=== PATIENT | male | born 1945 | race Caucasian/White ===

== ENCOUNTER 2018-08-03 08:27 | Emergency (ER) | payer OTHER, SELFPAY ==
[2018-08-03 08:33] VITALS: BP 182/97; PULSE 94; RESP 16; TEMP 36.6; O2SAT 100
[2018-08-03 09:56] LABS: Bilirubin Negative (Negative); Blood Small (Negative); Clarity Clear; Glucose Negative (Negative); Ketones Negative (Negative); Leukocyte Esterase Negative (Negative); Nitrite Negative (Negative); Specific Gravity 1.015 (1.005-1.025); Urobilinogen 0.2 EU/dL (Up TO 0.2)
--- NOTE | 2018-08-03 10:16 | W.ED.GENAD ---
Discharge Plan Disposition Patient Disposition: HOME Condition: Stable Discharge Details Chief Complaint: Urinary Clinical Impression: Acute urinary retention Primary Care Provider: Jas Gutierrez ED Provider: Micaela Joseph Home Meds and New Rx's Prescriptions: No Action celecoxib [Celebrex] 200 mg Capsule 200 mg PO DAILY RF: 0 Discharge Instructions Instructions: Urinary Retention in Men (ED), Caruso Catheter Placement and Care (ED), Urinary Leg Bag (GEN) Additional Instructions: Please return immediately to the emergency department he develop any new or worsening symptoms or if he become otherwise concerned. It is extremely important that you make an appointment to be seen in follow-up by urology within the next few days. Referrals: Jas Gutierrez [Primary Care Provider] - Oscar Rojas MD [ [facility] STAFF PHYSICIAN] - Medical Decision Making Benitez Fang is a 73-year-old man with history of arthritis no other major medical problems presenting to emergency department with difficulty urinating that began last night and lower abdominal pain since that time. On exam patient is very well and nontoxic-appearing. Benign abdominal exam. Normal neuro exam of lower extremities. Patient had Caruso placement after bladder scan showed greater than 1 L. Patient put out over 1 L of urine after Caruso placement. Abdominal pain resolved immediately with Caruso placement. Exam/history not consistent with cauda equina syndrome or other cord compression, prostatitis, medication induced urinary retention, or other acute emergent life-threatening process. Concern for likely BPH. Plan for screening labs, UA, anticipate discharge with Caruso and outpatient follow-up with urology. Labs okay. Pt placed on list for urgent outpt f/u with urology. Lengthy discussion with Pt re: RTED precautions and importance of outpt f/u with PCP and urology, Pt is amenable to the plan. Medical Records Medical records reviewed: Yes I reviewed the patient's medical records. Lab Data Lab results reviewed: Yes I reviewed the patient's lab results. Laboratory Tests Range/Units 08/03/18 08/03/18 08/03/18 09:45 10:36 10:36 WBC (4.4-10.8) k/cumm 4.91 RBC (4.50-6.00) m/cumm 4.70 Hgb (13.5-17.5) g/dL 14.4 Hct (40.0-50.0) % 43.8 MCV (80-95) fL 93.2 MCH (27.0-33.0) pg 30.6 MCHC (32.0-36.0) g/dL 32.9 RDW (11.8-14.1) % 13.9 Plt Count (130-400) x1000/uL 194 MPV (8.0-11.0) fL 10.4 Immature Gran % 0.2 Neutrophils % 74.6 Lymphocytes % 16.3 Monocytes % 6.9 Eosinophils % 1.4 Basophils % 0.6 Absolute Neutrophils (1.2-6.7) k/cumm 3.66 Absolute Lymphocytes (1.2-3.4) k/cumm 0.80 L Absolute Monocytes (0.11-0.7) k/cumm 0.34 Absolute Eosinophils (0.0-0.7) k/cumm 0.07 Absolute Basophils (0.0-0.2) k/cumm 0.03 Sodium (136-145) mmol/L 141 Potassium (3.5-5.1) mmol/L 4.3 Chloride (98-107) mmol/L 105 Carbon Dioxide (21.0-32.0) mmol/L 27.6 Anion Gap (3-11) mmol/L 8.4 BUN (7-18) mg/dL 13 Creatinine (0.70-1.30) mg/dL 0.88 Estimated GFR/1.73 m2 (mL/min/1.73m2) >= 60.00 Glucose (70-100) mg/dL 119 H Calcium (8.5-10.1) mg/dL 8.9 Total Bilirubin (0.2-1.0) mg/dL 0.5 AST (15-37) U/L 18 ALT (12-78) U/L 23 Alkaline Phosphatase (46-116) U/L 84 Total Protein (6.4-8.2) g/dL 7.6 Albumin (3.4-5.0) g/dL 3.9 Urine Color (Yellow) Yellow Urine Clarity Clear Urine pH (5-8) 7.0 Ur Specific [place] (1.005-1.025) 1.015 Urine Protein (Negative) mg/dL Negative Urine Ketones (Negative) mg/dL Negative Urine Blood (Negative) Small H Urine Nitrite (Negative) Negative Urine Bilirubin (Negative) Negative Urine Urobilinogen (Up TO 0.2) EU/dL 0.2 Ur Leukocyte Esterase (Negative) Negative Urine RBC (0-2) 0-2 Urine WBC (0-5) HPF Negative Ur Epithelial Cells (Negative) HPF Negative Urine Crystals (Negative) HPF Negative Urine Bacteria (Negative) HPF Negative Urine Casts (Negative) LPF Negative Urine Mucus (Negative) Negative Ur Culture Indicated? No Urine Glucose (Negative) mg/dL Negative HPI General Mode of arrival: ambulatory. Date/Time Provider Initiated Documentation: 08/03/18 09:36. Limitations to Documentation: no limitations. Information obtained by: patient, RN notes reviewed and old records reviewed. HPI Narrative: Benitez Fang is a 73 y/o man with history of arthritis and no other major medical problems presenting to the emergency department with inability to urinate. Patient reports that at approximately 5 or 6 last night he began having difficulty urinating, and has not been able to pass urine since that time. He came in this morning with lower abdominal pain, that resolved immediately upon placement of Caruso catheter. Patient reporting no pain at all, and reports that abdominal pain began at some point last night after he developed the inability to urinate. Prior to that, patient has been feeling well and in his usual state of health without other symptoms. He denies recent travel or recent illness. He takes ibuprofen and no other prescription or dkvv-deu-dserelr medications. Patient reports that he was told in the past that he had an enlarged prostate, but has never had urinary retention in the past. No fever, dysuria, nausea/vomiting/diarrhea/constipation, back pain, weakness of the arms or legs, numbness or tingling, cough, shortness of breath Related Data Home Medications Medication Instructions Recorded Confirmed celecoxib [Celebrex] 200 mg PO DAILY 08/03/18 08/03/18 Allergies Allergy/AdvReac Type Severity Reaction Status Date / Time No Known Allergies Allergy Unverified 08/03/18 08:45 General Stated Complaint: Urinary NICOLE: 3 Review of Systems Review of Systems Constitutional: denies fevers Eyes: denies eye pain ENT: denies facial pain, dental pain, sore throat Cardiovascular: denies chest pain Respiratory: denies SOB, cough GI: denies vomiting, diarrhea, reports abd pain now resolved : denies flank pain MSK: denies back pain, neck pain, arthralgias, myalgias Skin: denies rash Neuro: denies headaches, lightheadedness, weakness, n/t PFSH Social History Smoking/Tobacco Use Status: Current every day Exam Narrative Exam Narrative: Constitutional: well and [id number], pleasant, conversing normally HENT: head atraumatic, normocephalic normal inspection, mucous membranes moist Eyes: conjunctiva normal, sclera normal, pupils 3mm b/l Neck: no stridor, normal ROM, trachea midline Chest: normal inspection Resp: normal work of breathing, LCTAB Cardio: normal rate, normal rhythm, no murmur appreciated GI: abdomen soft, non-tender, non-distended Skin: warm, dry, normal color, no rash Neuro: alert, not altered, grossly non-focal, normal tone. Motor 5/5 b/l LEs. Ext: no edema Psych: normal mood, normal affect, normal behavior Course Vital Signs Temperature 36.6 C 08/03/18 08:33 Pulse 94 H 08/03/18 08:33 Respiratory Rate 16 08/03/18 08:33 Blood Pressure 182/97 H 08/03/18 08:33 Pulse Oximetry 100 08/03/18 08:33 Temperature 36.6 C 08/03/18 08:33 Temperature Source Temporal Artery Scan 08/03/18 08:33 Pulse 94 H 08/03/18 08:33 Respiratory Rate 16 08/03/18 08:33 Respiratory Effort 08/03/18 08:46 Blood Pressure 182/97 H 08/03/18 08:33 Blood Pressure Position Supine 08/03/18 08:33 Pulse Oximetry 100 08/03/18 08:33 Oxygen Delivery Method Room Air 08/03/18 08:33 Oxygen Flow Rate 0 08/03/18 08:33 Pain Level 3 08/03/18 08:33
--- NOTE | 2018-08-03 10:24 | ED.GENADUL_ITS ---
Discharge Plan Disposition Patient Disposition: HOME Condition: Stable Discharge Details Chief Complaint: Urinary Clinical Impression: Acute urinary retention Primary Care Provider: Jas Gutierrez ED Provider: Micaela Joseph Home Meds and New Rx's Prescriptions: No Action celecoxib [Celebrex] 200 mg Capsule 200 mg PO DAILY RF: 0 Discharge Instructions Instructions: Urinary Retention in Men (ED), Caruso Catheter Placement and Care (ED), Urinary Leg Bag (GEN) Additional Instructions: Please return immediately to the emergency department he develop any new or worsening symptoms or if he become otherwise concerned. It is extremely important that you make an appointment to be seen in follow-up by urology within the next few days. Referrals: Jas Gutierrez [Primary Care Provider] - Oscar Rojas MD [ [facility] STAFF PHYSICIAN] - Medical Decision Making Benitez Fang is a 73-year-old man with history of arthritis no other major medical problems presenting to emergency department with difficulty urinating that began last night and lower abdominal pain since that time. On exam patient is very well and nontoxic-appearing. Benign abdominal exam. Normal neuro exam of lower extremities. Patient had Caruso placement after bladder scan showed greater than 1 L. Patient put out over 1 L of urine after Caruso placement. Abdominal pain resolved immediately with Caruso placement. Exam/ history not consistent with cauda equina syndrome or other cord compression, prostatitis, medication induced urinary retention, or other acute emergent life- threatening process. Concern for likely BPH. Plan for screening labs, UA, anticipate discharge with Caruso and outpatient follow-up with urology. Labs okay. Pt placed on list for urgent outpt f/u with urology. Lengthy discussion with Pt re: RTED precautions and importance of outpt f/u with PCP and urology, Pt is amenable to the plan. Medical Records Medical records reviewed: Yes I reviewed the patient's medical records. Lab Data Lab results reviewed: Yes I reviewed the patient's lab results. Laboratory Tests Range/Units 08/03/18 08/03/18 08/03/18 09:45 10:36 10:36 WBC (4.4-10.8) k/cumm 4.91 RBC (4.50-6.00) m/cumm 4.70 Hgb (13.5-17.5) g/dL 14.4 Hct (40.0-50.0) % 43.8 MCV (80-95) fL 93.2 MCH (27.0-33.0) pg 30.6 MCHC (32.0-36.0) g/dL 32.9 RDW (11.8-14.1) % 13.9 Plt Count (130-400) x1000/uL 194 MPV (8.0-11.0) fL 10.4 Immature Gran % 0.2 Neutrophils % 74.6 Lymphocytes % 16.3 Monocytes % 6.9 Eosinophils % 1.4 Basophils % 0.6 Absolute Neutrophils (1.2-6.7) k/cumm 3.66 Absolute Lymphocytes (1.2-3.4) k/cumm 0.80 L Absolute Monocytes (0.11-0.7) k/cumm 0.34 Absolute Eosinophils (0.0-0.7) k/cumm 0.07 Absolute Basophils (0.0-0.2) k/cumm 0.03 Sodium (136-145) mmol/L 141 Potassium (3.5-5.1) mmol/L 4.3 Chloride (98-107) mmol/L 105 Carbon Dioxide (21.0-32.0) mmol/L 27.6 Anion Gap (3-11) mmol/L 8.4 BUN (7-18) mg/dL 13 Creatinine (0.70-1.30) mg/dL 0.88 Estimated GFR/1.73 m2 (mL/min/1.73m2) >= 60.00 Glucose (70-100) mg/dL 119 H Calcium (8.5-10.1) mg/dL 8.9 Total Bilirubin (0.2-1.0) mg/dL 0.5 AST (15-37) U/L 18 ALT (12-78) U/L 23 Alkaline Phosphatase (46-116) U/L 84 Total Protein (6.4-8.2) g/dL 7.6 Albumin (3.4-5.0) g/dL 3.9 Urine Color (Yellow) Yellow Urine Clarity Clear Urine pH (5-8) 7.0 Ur Specific [place] (1.005-1.025) 1.015 Urine Protein (Negative) mg/dL Negative Urine Ketones (Negative) mg/dL Negative Urine Blood (Negative) Small H Urine Nitrite (Negative) Negative Urine Bilirubin (Negative) Negative Urine Urobilinogen (Up TO 0.2) EU/dL 0.2 Ur Leukocyte Esterase (Negative) Negative Urine RBC (0-2) 0-2 Urine WBC (0-5) HPF Negative Ur Epithelial Cells (Negative) HPF Negative Urine Crystals (Negative) HPF Negative Urine Bacteria (Negative) HPF Negative Urine Casts (Negative) LPF Negative Urine Mucus (Negative) Negative Ur Culture Indicated? No Urine Glucose (Negative) mg/dL Negative HPI General Mode of arrival: ambulatory . Date/Time Provider Initiated Documentation: 08/03/18 09:36 . Limitations to Documentation: no limitations . Information obtained by: patient, RN notes reviewed and old records reviewed . HPI Narrative: Benitez Fang is a 73 y/o man with history of arthritis and no other major medical problems presenting to the emergency department with inability to urinate. Patient reports that at approximately 5 or 6 last night he began having difficulty urinating, and has not been able to pass urine since that time. He came in this morning with lower abdominal pain, that resolved immediately upon placement of Caruso catheter. Patient reporting no pain at all , and reports that abdominal pain began at some point last night after he developed the inability to urinate. Prior to that, patient has been feeling well and in his usual state of health without other symptoms. He denies recent travel or recent illness. He takes ibuprofen and no other prescription or over- the-counter medications. Patient reports that he was told in the past that he had an enlarged prostate, but has never had urinary retention in the past. No fever, dysuria, nausea/vomiting/diarrhea/constipation, back pain, weakness of the arms or legs, numbness or tingling, cough, shortness of breath Related Data Home Medications Medication Instructions Recorded Confirmed celecoxib [Celebrex] 200 mg PO DAILY 08/03/18 08/03/18 Allergies Allergy/AdvReac Type Severity Reaction Status Date / Time No Known Allergies Allergy Unverified 08/03/18 08:45 General Stated Complaint: Urinary NICOLE: 3 Review of Systems Review of Systems Constitutional: denies fevers Eyes: denies eye pain ENT: denies facial pain, dental pain, sore throat Cardiovascular: denies chest pain Respiratory: denies SOB, cough GI: denies vomiting, diarrhea, reports abd pain now resolved : denies flank pain MSK: denies back pain, neck pain, arthralgias, myalgias Skin: denies rash Neuro: denies headaches, lightheadedness, weakness, n/t PFSH Social History Smoking/Tobacco Use Status: Current every day Exam Narrative Exam Narrative: Constitutional: well and [id number], pleasant, conversing normally HENT: head atraumatic, normocephalic normal inspection, mucous membranes moist Eyes: conjunctiva normal, sclera normal, pupils 3mm b/l Neck: no stridor, normal ROM, trachea midline Chest: normal inspection Resp: normal work of breathing, LCTAB Cardio: normal rate, normal rhythm, no murmur appreciated GI: abdomen soft, non-tender, non-distended Skin: warm, dry, normal color, no rash Neuro: alert, not altered, grossly non-focal, normal tone. Motor 5/5 b/l LEs. Ext: no edema Psych: normal mood, normal affect, normal behavior Course Vital Signs Temperature 36.6 C 08/03/18 08:33 Pulse 94 H 08/03/18 08:33 Respiratory Rate 16 08/03/18 08:33 Blood Pressure 182/97 H 08/03/18 08:33 Pulse Oximetry 100 08/03/18 08:33 Temperature 36.6 C 08/03/18 08:33 Temperature Source Temporal Artery Scan 08/03/18 08:33 Pulse 94 H 08/03/18 08:33 Respiratory Rate 16 08/03/18 08:33 Respiratory Effort 08/03/18 08:46 Blood Pressure 182/97 H 08/03/18 08:33 Blood Pressure Position Supine 08/03/18 08:33 Pulse Oximetry 100 08/03/18 08:33 Oxygen Delivery Method Room Air 08/03/18 08:33 Oxygen Flow Rate 0 08/03/18 08:33 Pain Level 3 08/03/18 08:33
[2018-08-03 10:29] LABS: Bacteria Negative HPF (Negative); C & S Indicated? No; Casts Negative LPF (Negative); Crystals Negative HPF (Negative); Epithelial Cells Negative HPF (Negative); Mucus Negative (Negative); RBC 0-2 (0-2); WBC Negative HPF (0-5)
[2018-08-03 10:43] LABS: Abs Immature Grans 0.01 k/cumm (0.0-0.09); Absolute Basophil Count 0.03 k/cumm (0.0-0.2); Absolute Eosinophil Count 0.07 k/cumm (0.0-0.7); Absolute Monocyte Count 0.34 k/cumm (0.11-0.7); Absolute Neutrophil Count 3.66 k/cumm (1.2-6.7); Basophils % 0.6; Eosinophils % 1.4; HCT 43.8 % (40.0-50.0); HGB 14.4 g/dL (13.5-17.5); Immature Grans % 0.2; Lymphocytes % 16.3; Mean Corp. HGB Concentration 32.9 g/dL (32.0-36.0); Mean Corpuscular Hemoglobin 30.6 pg (27.0-33.0); Mean Corpuscular Volume 93.2 fL (80-95); Mean Platelet Volume 10.4 fL (8.0-11.0); Monocytes % 6.9; Neutrophils % 74.6; Platelet Count 194 x1000/uL (130-400); RBC Distribution Width 13.9 % (11.8-14.1); White Blood Cell Count 4.91 k/cumm (4.4-10.8)
[2018-08-03 11:00] LABS: ALT 23 U/L (12-78); AST 18 U/L (15-37); Albumin 3.9 g/dL (3.4-5.0); Alkaline Phosphatase 84 U/L (46-116); Anion Gap 8.4 mmol/L (3-11); BUN 13 mg/dL (7-18); Bilirubin, Total 0.5 mg/dL (0.2-1.0); CO2 27.6 mmol/L (21.0-32.0); CREATININE 0.88 mg/dL (0.70-1.30); Calcium 8.9 mg/dL (8.5-10.1); Chloride 105 mmol/L (98-107); Glucose 119 mg/dL (70-100); Potassium 4.3 mmol/L (3.5-5.1); Sodium 141 mmol/L (136-145); Total Protein 7.6 g/dL (6.4-8.2)
--- NOTE | 2018-08-04 09:13 | PDOC.ERCMPRO ---
Care Management Progress Note 08/04/18-Pt seen on 08/03/18 for urinary retention by Dr. Alanis Joseph . F/U request faxed to Urology .
== END 2018-08-03 11:19 | disposition home or self-care (01) ==
PROVIDERS: Emergency Provider Student in an Organized Health Care Education/Training Program; PCP Family Medicine
DX: R33.9 Retention of urine, unspecified (principal)
CPT/HCPCS: 36415; 51702; 80053; 99283; 81003; 81015; 85025

== ENCOUNTER → 2018-08-12 07:48 | Outpatient (BNVA) | payer OTHER, SELFPAY | PROVIDERS: PCP Family Medicine; Visit Provider Nurse Practitioner Gerontology | DX: R33.9 Retention of urine, unspecified (principal); N52.9 Male erectile dysfunction, unspecified | CPT/HCPCS: 99204; 99215 ==

== ENCOUNTER → 2018-11-16 10:12 | Outpatient (BNVA) | payer OTHER, SELFPAY | PROVIDERS: PCP Family Medicine; Visit Provider Nurse Practitioner Gerontology | DX: N40.1 Benign prostatic hyperplasia with lower urinary tract symptoms (principal); R33.8 Other retention of urine; N52.9 Male erectile dysfunction, unspecified | CPT/HCPCS: 51798; 99213 ==

== ENCOUNTER 2019-07-25 03:44 | Emergency (ER) | payer OTHER, SELFPAY ==
[2019-07-25 03:49] VITALS: BP 150/77; PULSE 85; RESP 18; TEMP 37; O2SAT 95
--- NOTE | 2019-07-25 03:57 | W.ED.GENAD ---
Discharge Plan Disposition Patient Disposition: HOME Condition: Good Discharge Details Chief Complaint: Urinary Clinical Impression: Urinary retention due to benign prostatic hyperplasia, Acute UTI Primary Care Provider: Unknown,Unknown ED Provider: Renan Sheffield Home Meds and New Rx's Prescriptions: New levofloxacin 750 mg tablet 750 mg PO DAILY Qty: 5 RF: 0 No Action tamsulosin [Flomax] 0.4 mg capsule 0.4 mg PO DAILY Qty: 90 RF: 3 celecoxib [Celebrex] 200 mg Capsule 200 mg PO DAILY RF: 0 Discharge Instructions Instructions: Urinary Retention in Men (ED), Urinary Tract Infection in Men (ED) Additional Instructions: In addition to your urinary retention you also have a mild urinary tract infection. Please take the antibiotic as directed. If you notice any pain in your joints, please stop taking the antibiotic immediately and do not perform any significant vigorous activity. We have placed a referral with Dr. Rojas, if you do not hear from him by Friday, please contact the ED and so we can help with this process. If you notice any worsening of your symptoms, or any new symptoms such as vomiting, diarrhea, fever, chills, shortness of breath, chest pain, numbness, weakness, or fainting , please return immediately to the emergency department for reevaluation. Please follow up with your primary care provider as soon as possible for reassessment and reevaluation. As always, it was a pleasure participating in your medical care today. Referrals: Oscar Rojas MD [ [facility] STAFF PHYSICIAN] - Medical Decision Making This is a pleasant 74-year-old male with past medical history of BPH and tamsulosin use with last episode of urinary retention last year who presents today for evaluation of urinary retention. Last urinary movement was roughly 14 hours ago. He does admit to a small amount of burning. He denies any blood. He denies any fever chills abdominal or flank pain. Genital exam is unremarkable. Currently the patient is retaining 450 cc of urine or greater. We will place a Caruso catheter with leg bag. Obtain a urinalysis and reassess. 4:41 AM Patient had 500 mL's of urine removed, vital signs are stable, urinalysis does demonstrate evidence of urinary tract infection. No clinical evidence of pyelonephritis with fever, chills or flank pain. We will give the first dose of Levaquin here, and antibiotics for home use. We will place a referral for outpatient urology follow-up. I have extensively reviewed the treatment plan and discharge instructions with the patient. I have addressed all patient concerns at this time. The patient was made aware of what symptoms to monitor for that would warrant a return to the emergency department. Discussed the plan with the patient, they demonstrate verbal understanding and agreement with our assessment and plan at this time. HPI General Date/Time Provider Initiated Documentation: 07/25/19 03:46. HPI Narrative: This is a pleasant 74-year-old male with a past medical history of benign prostatic hyperplasia, and previous episode of urinary retention. He presents today for evaluation of urinary retention. Patient states that his last urinary movement was 15 hours ago at 11 AM, he is able to get very small amounts of urine out since then, but this is been minimal. He has had notable pain and pressure since then, small amount of burning is also been present. He denies any hematuria. He has been taking his Flomax as directed. He denies any fever, chills, nausea, vomiting, diarrhea or other complaints. He states that his symptoms feel identical to his last episode of urinary retention. Related Data Home Medications Medication Instructions Recorded Confirmed celecoxib [Celebrex] 200 mg PO DAILY 08/03/18 07/25/19 tamsulosin 0.4 mg capsule 0.4 mg PO DAILY #90 cap 11/16/18 07/25/19 levofloxacin 750 mg PO DAILY #5 tab 07/25/19 Previous Rx's Medication Instructions Recorded tamsulosin 0.4 mg capsule 0.4 mg PO DAILY #90 cap 11/16/18 levofloxacin 750 mg PO DAILY #5 tab 07/25/19 Allergies Allergy/AdvReac Type Severity Reaction Status Date / Time Penicillins Allergy Unknown Verified 07/25/19 04:12 General NICOLE: 3 Review of Systems Review of Systems ROS Unobtainable: All systems reviewed & are unremarkable except as noted in HPI and below [facility] Social History (Updated 08/12/18 @ 08:16 by Danielle Salcedo RN) Smoking/Tobacco Use Status: Current every day Alcohol Intake: current Alcohol Intake frequency: holidays/special occasions only Drug use: Never Substance use type: does not use Do you feel safe in your relationship?: Yes Exam Narrative Exam Narrative: 1.Const: Well-nourished, Well-developed, appearing stated age 2.Eyes: PERRL, no conjunctival injection, and symmetrical lids. 3.ENT: Atraumatic external nose and ears. Moist MM. Neck: Symmetric, trachea midline, No thyromegaly. 4.CVS: +S1/S2, No murmurs or gallops. Peripheral pulses 2+ and equal in all extremities. Brisk capillary refill in all extremities. 5.RESP: Unlabored respiratory effort. Clear to auscultation bilaterally. No wheezes rales or rhonchi 6.GI: Soft, Nontender/Nondistended, No hepatosplenomegaly. No guarding or rebound. Mild suprapubic tenderness. Mild fullness noted. Genital exam demonstrates normal male genitalia, no testicular tenderness, no penile tenderness, no blood at the urethra. 7.MSK: Normocephalic/Atraumatic, Extremities w/o deformity or ttp No cyanosis or clubbing, Normal movement of all extremities 8.Skin: Warm, Dry. No rashes or lesions. 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 Sensation grossly intact, no focal neurologic deficits. 10.Psych: (AAO) x3. Appropriate mood and affect
[2019-07-25] MEDS: Lidocaine 2% Jelly 6 ML SYR (04:15)
[2019-07-25 04:25] LABS: Bilirubin Negative (Negative); Blood Moderate (Negative); Clarity Clear (Clear); Glucose Negative (Negative); Ketones Negative (Negative); Leukocyte Esterase Large (Negative); Nitrite Positive (Negative); Specific Gravity 1.015 (1.005-1.025); Urobilinogen 0.2 EU/dL (Up TO 0.2); pH 6.5 (5-8)
[2019-07-25 04:31] LABS: WBC >50 HPF (0-5)
[2019-07-25 04:32] LABS: C & S Indicated? Yes
[2019-07-25] MEDS: levoFLOXacin 500 MG, levoFLOXacin 250 MG 750 MG PO (04:38)
[2019-07-25 04:39] VITALS: BP 127/73
--- NOTE | 2019-07-25 04:43 | NUR.NOTE ---
Nursing Note: faxed referal to urology
[2019-07-25 05:20] VITALS: BP 127/73
--- NOTE | 2019-07-27 06:55 | NUR.NOTE ---
Nursing Note: Patient called this morning stating that he had not yet heard from [facility]. Another referral was faxed to that department. Sherron Parker.
== END 2019-07-25 05:21 | disposition home or self-care (01) ==
PROVIDERS: Emergency Provider Student in an Organized Health Care Education/Training Program
DX: N39.0 Urinary tract infection, site not specified (principal); N40.1 Benign prostatic hyperplasia with lower urinary tract symptoms; R33.8 Other retention of urine; B95.61 Methicillin susceptible Staphylococcus aureus infection as the cause of diseases classified elsewhere
CPT/HCPCS: 51702; 87077; 99283; 81003; 81015; 87086; 87186

== ENCOUNTER → 2019-07-28 07:56 | Outpatient (BNVA) | payer OTHER, SELFPAY | PROVIDERS: Visit Provider Nurse Practitioner Gerontology | DX: N40.1 Benign prostatic hyperplasia with lower urinary tract symptoms (principal); R33.8 Other retention of urine | CPT/HCPCS: 99213 ==

== ENCOUNTER → 2019-08-24 08:26 | Outpatient (BNVA) | payer OTHER, SELFPAY | PROVIDERS: Visit Provider Nurse Practitioner Gerontology | DX: N40.1 Benign prostatic hyperplasia with lower urinary tract symptoms (principal); R33.8 Other retention of urine | CPT/HCPCS: 51798; 81003; 99213 ==

== ENCOUNTER → 2020-08-28 08:28 | Outpatient (BNVA) | payer OTHER, SELFPAY | PROVIDERS: Visit Provider Nurse Practitioner Gerontology | DX: N40.1 Benign prostatic hyperplasia with lower urinary tract symptoms (principal); R33.8 Other retention of urine; R97.20 Elevated prostate specific antigen [PSA] | CPT/HCPCS: 99213 ==

== ENCOUNTER 2020-08-28 10:07 | Outpatient (REF) | payer OTHER, SELFPAY ==
[2020-08-28 17:58] LABS: PSA, Screening 115.3 ng/mL (0.0-6.5)
== END 2020-08-28 10:27 ==
LOC: LBO 10:07
PROVIDERS: Visit Provider Nurse Practitioner Gerontology
DX: N40.1 Benign prostatic hyperplasia with lower urinary tract symptoms (principal); R33.9 Retention of urine, unspecified
CPT/HCPCS: 84153

== ENCOUNTER 2020-09-29 04:26 | Outpatient (CLI) | payer OTHER, SELFPAY ==
--- NOTE | 2020-09-29 07:15 | DI.US_ITS ---
EXAM: elevated psa,R97.20 COMPARISON: No exams were available for comparison TECHNIQUE: Ultrasound performed using standard protocol. FINDINGS: Sonography was provided for Dr. Rojas during the performance of a transrectal ultrasound-guided pros cardenas biopsy. Please refer to the procedure report for complete details. DATA REPOSITORY:
--- NOTE | 2020-09-29 13:45 | PROST_PTH ---
PATIENT: Benitez Fang LOC: [facility] U#:[id number] AGE/SX: 75/M ROOM: RE09/29/[address]: Oscar Rojas MD : 1945 BED: DIS: 09/29/2020 SPEC #: [id number] RECD: 09/29/20 15:55 STATUS: YUKO REQ #: [id number] MACI: 09/29/20 13:[address]: Oscar Rojas DEPT: Surgical Specimen RECD BY: Violet Garland ENTERED: 09/29/20 15:57 SP TYPE: PROST OTHR DR: Aletha Newell, DANIEL Unknown,Unknown Tissues: 1 - PROSTATE NEEDLE BIOPSY 2 - PROSTATE NEEDLE BIOPSY 3 - PROSTATE NEEDLE BIOPSY 4 - PROSTATE NEEDLE BIOPSY 5 - PROSTATE NEEDLE BIOPSY 6 - PROSTATE NEEDLE BIOPSY 7 - PROSTATE NEEDLE BIOPSY 8 - PROSTATE NEEDLE BIOPSY 9 - PROSTATE NEEDLE BIOPSY 10 - PROSTATE NEEDLE BIOPSY 11 - PROSTATE NEEDLE BIOPSY 12 - PROSTATE NEEDLE BIOPSY Procedures: GROSS AND MICRO LEVEL 4 IMMUNOPEROXIDASE STAIN Comments: [id number]
--- NOTE | 2020-09-29 14:06 | W.PM.OP ---
Date of service: 09/29/20 Time of Service: 14:06 Operative Note Operative Note DATE OF PROCEDURE: 09/29/20 PRE-OP DIAGNOSIS: Elevated PSA POST-OP DIAGNOSIS: same PROCEDURE: Transrectal ultrasound-guided biopsy of the prostate SURGEON: Oscar Rojas ANESTHESIA: local ESTIMATED BLOOD LOSS: 5 PATHOLOGY: other (12 laterally directed biopsies of the prostate) COMPLICATIONS: None Patient was transported to: no change Patient's condition: stable Indications: This is a 75-year-old gentleman who has an asymmetric prostate on exam. His PSA is 115 ng/dL. He comes in for ultrasound-guided biopsy of the prostate Findings: Asymmetric prostate with a volume of 85 cc Procedure Description: The patient was given a preoperative antibiotic and mechanical bowel prep. He was brought to the radiology suite on 09/29/2020. He was placed in the left lateral position. Transrectal imaging of the prostate was performed using a variable megahertz transducer. The prostate was imaged in transverse and longitudinal planes. The prostate was asymmetric with the left side being larger than the right. The prostatic volume was calculated at 85 cc. The peripheral zone appeared normal but compressed by an enlarged transition zone. The few calcified areas were seen within the transition zone. The seminal vesicles appeared normal. A periprosthetic nerve block was then performed using 1% Xylocaine. 12 laterally directed biopsies were taken, labeled and sent to pathology for permanent section. The patient tolerated this procedure well.
== END 2020-09-29 04:46 ==
PROVIDERS: PCP Nurse Practitioner Gerontology; Visit Provider Urology
DX: R97.20 Elevated prostate specific antigen [PSA] (principal)
CPT/HCPCS: 55700; 76872; 76942; 88305; 88361

== ENCOUNTER → 2020-10-13 14:58 | Outpatient (BNVA) | payer OTHER, SELFPAY | PROVIDERS: PCP Nurse Practitioner Gerontology; Referring Provider Nurse Practitioner Gerontology; Visit Provider Urology | DX: C61 Malignant neoplasm of prostate (principal) | CPT/HCPCS: 99213 ==

== ENCOUNTER 2020-10-27 03:53 | Outpatient (CLI) | payer OTHER, SELFPAY ==
--- NOTE | 2020-10-27 06:54 | DI.NM_ITS ---
EXAM: NM BONE SCAN WHOLE BODY GRP CLINICAL HISTORY: r/o mets, prostate ca,c61. TECHNIQUE: Injected Dose: 28 mCi Tc-99m MDP Delayed Images: 2-3 hours. COMPARISON: CT CT ABDOMEN PELVIS W from 10/27/2020 FINDINGS: Symmetric axial uptake. Bilateral renal excretion is identified. There are bilateral increased areas of radiotracer uptake in the shoulders and wrists most consistent with degenerative changes. There i s increased radiotracer uptake seen in the lumbar spine consistent with the patient's marked degenera tive changes. This is best identified on the SPECT images. Note is made of increased radiotracer up take in the mid cervical spine. There is also asymmetric uptake at the sternoclavicular joints right greater than left. A chest x-ray and or CT scan of the chest may be considered for further evaluati on. These likely reflect degenerative changes. No definite increased radiotracer uptake in the axia l or appendicular spine to suggest osseous metastatic disease. IMPRESSION: 1. No definite evidence to suggest osseous metastatic disease. Please see the above discussion for c omplete details. DATA REPOSITORY:
[2020-10-27] MEDS: Omnipaque 350 MG/ML 50 ML BTL IJ (08:13)
[2020-10-27] MEDS: Breeza Beverage 473 ML BTL PO ×2 (08:14→08:15)
[2020-10-27 08:22] LABS: CREATININE 0.92 mg/dL (0.70-1.30)
--- NOTE | 2020-10-27 09:10 | DI.CT_ITS ---
EXAM: CT ABDOMEN PELVIS W CLINICAL HISTORY: R/O METS,PROSTATE CA,C61 TECHNIQUE: Imaging Protocol: Axial computed tomography images with coronal and sagittal reformatted images were created and reviewed CONTRAST MATERIAL: Intravenous: Omnipaque 350 Contrast volume:100 mL Oral: Yes COMPARISON: No exams were available for comparison FINDINGS: ABDOMEN: Lung Bases: Mild pulmonary fibrosis. Liver: There is a there are few tiny hypodensities scattered in the liver. They are too small for fu rther characterization but likely reflect small cysts. No suspicious hepatic masses. Portal, Superior Mesenteric, and Splenic Veins: Unremarkable. Gallbladder and Biliary Tract: No radiodense calculus or dilation. Pancreas: Normal density, no abnormal calcifications or inflammatory process. Spleen: Normal. Adrenals: No masses seen. Kidneys: Normal size, contour and axis. There is a 2 mm nonobstructing stone in the midpole of the ri ght kidney. There is a 1.9 cm simple cyst in the superior pole of the right kidney. No further foll ow-up is recommended. Abdominal Aorta: Abdominal portion non-dilated. Moderate atherosclerosis. Bowel: No obstruction or bowel wall thickening. No evidence of acute appendicitis. There is a modera te amount of stool throughout the colon. There is a small diverticulum in the duodenum adjacent to t he head of the pancreas. Diverticulosis in the descending and sigmoid colon is noted but no evidence of acute diverticulitis. Peritoneal Cavity: No ascites, collection or mesenteric inflammatory response. Lymph Nodes: There is a 1.4 cm mesenteric lymph node noted. Bones: There is an old fracture deformity of the left hemipelvis. Degenerative changes are seen in t he spine particularly at the L2-3, L3-4 and L4-5 disc levels. No suspicious sclerotic lesions are se en. There is a mild right convex scoliotic curvature in the lower lumbar spine. No acute fractures or subluxations are seen. There is no spondylolysis. Soft Tissues: Unremarkable. PELVIS: Bladder: There is diffuse thickening of the wall of the urinary bladder. This may in part be due to underdistention. However, chronic bladder outlet obstruction or an inflammatory/infectious cystitis cannot be excluded. Please correlate clinically. Reproductive Organs: There is an enlarged prostate gland with nodular impingement into the base of th e urinary bladder Lymph Nodes: Within normal limits. Bones: Please see above. IMPRESSION: 1. Enlarged prostate gland. It impinges upon the base of the urinary bladder. 2. Diffuse thickening of the wall of the urinary bladder. Differential considerations include underd istention, chronic bladder outlet obstruction, or an inflammatory/infectious cystitis. Please correl ate clinically. 3. No evidence of abdominal or pelvic metastatic disease. 4. Marked degenerative changes in the lumbar spine particularly from L2-3 through L4-5. No definite s pecific sclerotic lesions are seen in the bones. RADIATION DOSE DELIVERED: 1,059.92mGy.cm Total DLP DATA REPOSITORY: All CT scans at this facility are submitted to the National Radiology Data Registry (NRDR) Dose Index Registry (DIR) with the [employer] (ACR). RADIATION OPTIMIZATION: All CT scans at this facility use at least one of these dose optimization te chniques: automated exposure control; mA and/or kV adjustment per patient size (includes targeted exa ms where dose is matched to clinical indication); or iterative reconstruction.
[2020-10-27] MEDS: Normal Saline - Diluent 50 ML VIAL IV (09:21)
[2020-10-27] MEDS: Omnipaque 350 MG/ML 100 ML BTL IJ (09:21)
[2020-10-27] MEDS: Normal Saline Flush 10 ML SYR IVP (09:22)
== END 2020-10-27 04:13 ==
PROVIDERS: PCP Nurse Practitioner Gerontology; Visit Provider Urology
DX: C61 Malignant neoplasm of prostate (principal); N40.0 Benign prostatic hyperplasia without lower urinary tract symptoms; M47.816 Spondylosis without myelopathy or radiculopathy, lumbar region
CPT/HCPCS: 78306; 74177; 82565; J3490; Q9967

== ENCOUNTER 2020-10-31 07:56 | Outpatient (CLI) | payer OTHER, SELFPAY ==
--- NOTE | 2020-10-31 15:30 | DI.RAD_ITS ---
EXAM: XR CHEST 2V PA LATERAL CLINICAL HISTORY: r/o met PROSTATE CANCER C61 TECHNIQUE: 2D digital imaging was performed. COMPARISON: No exams were available for comparison FINDINGS: MEDIASTINUM: Normal. HEART: Normal. PULMONARY VASCULATURE: Normal. LUNGS: Clear. The lungs are hyperinflated with flattened diaphragms suggesting underlying COPD. No pulmonary nodules are identified. PLEURAL SPACE: No pleural effusion or pneumothorax. BONE:Within normal limits for the patient's age. OTHER FINDINGS:Normal. IMPRESSION: No acute pulmonary findings. DATA REPOSITORY: RADIATION DOSE DELIVERED:
== END 2020-10-31 08:16 ==
PROVIDERS: PCP Nurse Practitioner Gerontology; Visit Provider Urology
DX: C61 Malignant neoplasm of prostate (principal)
CPT/HCPCS: 71046

== ENCOUNTER → 2020-10-31 14:56 | Outpatient (BNVA) | payer OTHER, SELFPAY | PROVIDERS: PCP Nurse Practitioner Gerontology; Referring Provider Nurse Practitioner Gerontology; Visit Provider Urology | DX: C61 Malignant neoplasm of prostate (principal) | CPT/HCPCS: 96402; 99213; J9217 ==

== ENCOUNTER → 2021-02-06 09:24 | Outpatient (BNVA) | payer OTHER, SELFPAY | PROVIDERS: Referring Provider Nurse Practitioner Gerontology; Visit Provider Urology | DX: C61 Malignant neoplasm of prostate (principal) | CPT/HCPCS: 99213 ==

== ENCOUNTER 2021-02-06 14:39 | Outpatient (REF) | payer OTHER, SELFPAY ==
[2021-02-06 21:58] LABS: PSA, Diagnostic 0.5 ng/mL (0.0-6.5)
[2021-02-09 13:39] LABS: Testosterone, Total 7.4 ng/dL (240-950)
== END 2021-02-06 14:40 | disposition home or self-care (01) ==
LOC: LBN 14:39
PROVIDERS: Visit Provider Urology
DX: C61 Malignant neoplasm of prostate (principal)
CPT/HCPCS: 84403; 84153

== ENCOUNTER 2021-03-08 08:20 | Outpatient (CLI) | payer OTHER, SELFPAY ==
[2021-03-08 10:38] LABS: ALT 25 U/L (16-63); AST 18 U/L (15-37); Albumin 3.6 g/dL (3.4-5.0); Alkaline Phosphatase 77 U/L (46-116); Bilirubin, Direct 0.1 mg/dL (0.0-0.2); Bilirubin, Total 0.3 mg/dL (0.2-1.0); Total Protein 7.1 g/dL (6.4-8.2)
== END 2021-03-08 08:21 | disposition home or self-care (01) ==
LOC: LBO 08:22
PROVIDERS: Visit Provider Radiology Radiation Oncology
DX: C61 Malignant neoplasm of prostate (principal)
CPT/HCPCS: 36415; 80076

== ENCOUNTER 2021-04-19 02:46 | Outpatient (CLI) | payer OTHER, SELFPAY ==
[2021-04-20 11:04] LABS: PSA, Ultrasensitive <0.01 ng/mL (<= 6.5)
[2021-04-21 12:35] LABS: Testosterone, Total <7.0 ng/dL (240-950)
== END 2021-04-19 02:47 | disposition home or self-care (01) ==
LOC: LBO 02:46
PROVIDERS: Visit Provider Radiology Radiation Oncology
DX: C61 Malignant neoplasm of prostate (principal)
CPT/HCPCS: 36415; 84153; 84403

== ENCOUNTER → 2021-05-11 08:18 | Outpatient (BNVA) | payer OTHER, SELFPAY | PROVIDERS: Visit Provider Urology | DX: C61 Malignant neoplasm of prostate (principal); Z79.899 Other long term (current) drug therapy | CPT/HCPCS: 99213 ==

== ENCOUNTER 2021-08-13 03:49 | Outpatient (CLI) | payer OTHER, SELFPAY ==
[2021-08-13 18:05] LABS: PSA, Diagnostic <0.1 ng/mL (0.0-6.5)
[2021-08-18 12:46] LABS: Testosterone, Total 9.9 ng/dL (240-950)
== END 2021-08-13 03:50 | disposition home or self-care (01) ==
LOC: LBO 03:49
PROVIDERS: Visit Provider Urology
DX: C61 Malignant neoplasm of prostate (principal)
CPT/HCPCS: 36415; 84403; 84153

== ENCOUNTER → 2021-08-17 07:39 | Outpatient (BNVA) | payer MEDICARE, SELFPAY | PROVIDERS: Visit Provider Urology | DX: C61 Malignant neoplasm of prostate (principal) ==

== ENCOUNTER 2021-10-30 01:55 | Outpatient (CLI) | payer MEDICARE, SELFPAY ==
[2021-10-31 11:38] LABS: PSA, Ultrasensitive <0.01 ng/mL (<= 6.5)
[2021-11-01 23:27] LABS: Testosterone, Total 11 ng/dL (240-950)
== END 2021-10-30 01:56 | disposition home or self-care (01) ==
LOC: LBO 01:55
PROVIDERS: Visit Provider Radiology Radiation Oncology
DX: C61 Malignant neoplasm of prostate (principal)
CPT/HCPCS: 36415; 84153; 84403

== ENCOUNTER → 2021-11-27 08:24 | Outpatient (BNVA) | payer MEDICARE, SELFPAY | PROVIDERS: Visit Provider Urology | DX: C61 Malignant neoplasm of prostate (principal); Z79.899 Other long term (current) drug therapy | CPT/HCPCS: 99214 ==

== ENCOUNTER 2021-12-01 13:00 | Emergency (ER) | payer MEDICARE, SELFPAY ==
[2021-12-01 13:08] VITALS: BP 170/92; PULSE 85; RESP 16; TEMP 36.4; O2SAT 98
--- NOTE | 2021-12-01 13:41 | ED.GENADUL_ITS ---
Discharge Plan Disposition Patient Disposition: HOME Condition: Stable Discharge Details Clinical Impression: Fracture, ribs Primary Care Provider: Unknown,Unknown ED Provider: Jennifer Cunningham Home Meds and New Rx's Prescriptions: New oxycodone 5 mg tablet 5 mg PO Q6H PRN (Reason: pain) Qty: 7 RF: 0 Continued tamsulosin [Flomax] 0.4 mg capsule 0.4 mg PO DAILY Qty: 90 RF: 3 celecoxib [Celebrex] 200 mg capsule 200 mg PO DAILY Qty: 90 RF: 4 Discharge Instructions Instructions: Rib Fracture (ED) Additional Instructions: Apply ice to the affected area several times daily for 20 minutes at a time. Alternate tylenol and motrin as needed and directed for pain. Take the oxycodo ne for pain not relieved with Tylenol or Motrin. Use the incentive spirometer as directed to help with taking deep breaths to prevent the development of pneumonia. Follow-up with your primary care doctor in 1 week. Return to the emergency department with any worsening or new concerning symptoms such as fever, shortness of breath, worsening pain or any other concerns. Discharge Data Discharge Physician: Jennifer Cunningham Medical Decision Making 76-year-old male presents with right lower lateral chest and back pain after a fall in his garage yesterday with his arm up against his chest hitting his right side of his body onto the cement floor. Denies any difficulty breathing, abdominal pain or vomiting. Vitals note a elevated blood pressure but with normal respiratory rate and oxygen saturation. Patient appears comfortable and nontoxic. He has reproducible pain with movement in his right anterior and lateral inferior chest and posterior inferior back which is tender to palpation but without crepitus or open wounds. Abdomen soft and nontender. Right upper extremity normal to i nspection without evidence of trauma and he is neurovascular intact. X-rays note right fourth and eighth rib fractures. No evidence of pneumothorax or other acute disease. Patient reassessed and pain improved. He appears more comfortable with movement. He was given oxycodone to go and a prescription sent electronically to his pharmacy. He was also given an incentive spirometer. Advised to follow up with the primary care doctor for re-evaluation. Usual and customary return precautions given prior to discharge. Medical Records Medical records reviewed: Yes I reviewed the patient's medical records. Imaging Data Radiologic Study: Radiologist's impression: XR Right Ribs Exam date and time: 12/01/2021 1:52 PM Age: 76 years old Clinical indication: Chest wall pain and right-sided; Other: RT sided rib pain TECHNIQUE: Imaging protocol: XR Right ribs. Views: 2 views. COMPARISON: CT NM BONE SCAN WHOLE BODY [facility] 27/10/2020 08:57 FINDINGS: Bones/joints: Oblique views of the right hemithorax demonstrate fractures of the 8th posterior and 4th lateral ribs. Soft tissues: Small right pleural effusion is present. IMPRESSION: Right 4th and 8th rib fractures. XR Chest Exam date and time: 12/01/2021 1:52 PM Age: 76 years old Clinical indication: Chest wall pain and right-sided; Other: RT sided rib pain TECHNIQUE: Imaging protocol: XR of the chest. Views: 2 views. COMPARISON: CT NM BONE SCAN WHOLE BODY [facility] 27/10/2020 08:57 FINDINGS: Lungs: Lungs are clear with no focal infiltrate or nodule. Pleural spaces: Trace right-sided pleural effusion is present. There is no pneumothorax. Heart/Mediastinum: Cardiomediastinal silhouette is normal. Bones/joints: Right-sided rib fractures are present. See above. IMPRESSION: No active cardiopulmonary disease. Lab Data Lab results reviewed: Yes I reviewed the patient's lab results. HPI General Mode of arrival: ambulatory . Date/Time Provider Initiated Documentation: 12/01/21 13:20 . Limitations to Documentation: no limitations . Information obtained by: patient . HPI Narrative: Patient is a 76-year-old male who presents with right chest and back pain after fall in his garage yesterday. Patient states he was moving a wheelbarrow when he was walking backwards and tripped and hit his right side and back on the cement floor. He states his right arm was up against his chest when he fell. He denies any significant pain in his arm. He denies head injury or any other injuries. He took ibuprofen for pain yesterday without relief. He has not taken any medication for pain today. He denies any difficulty breathing, vomiting or abdominal pain. Related Data Home Medications Medication Instructions Recorded Confirmed celecoxib 200 mg capsule 200 mg PO DAILY #90 cap 11/27/21 12/01/21 tamsulosin 0.4 mg capsule 0.4 mg PO DAILY #90 cap 11/27/21 12/01/21 oxycodone 5 mg PO Q6H PRN #7 tab 12/01/21 Previous Rx's Medication Instructions Recorded celecoxib 200 mg capsule 200 mg PO DAILY #90 cap 11/27/21 tamsulosin 0.4 mg capsule 0.4 mg PO DAILY #90 cap 11/27/21 oxycodone 5 mg PO Q6H PRN #7 tab 12/01/21 Allergies Allergy/AdvReac Type Severity Reaction Status Date / Time Penicillins Allergy Unknown Verified 08/24/19 08:35 codeine AdvReac Unverified 12/01/21 13:15 General Stated Complaint: Chest/Rib NICOLE: 3 Review of Systems All systems reviewed & are unremarkable except as noted in HPI and below Constitutional Constitutional: Reports as per HPI, Denies chills and Denies fever(s) Eyes Eyes: Denies blurry vision ENT Ears, Nose, Mouth, and Throat: Denies dizziness, Denies sore throat and Denies throat swelling Cardiovascular Cardiovascular: Denies chest pain and Denies dyspnea Respiratory Respiratory: Denies cough and Denies dyspnea Gastrointestinal Gastrointestinal: Denies abdominal pain, Denies diarrhea and Denies vomiting Genitourinary Genitourinary: Denies hematuria and Denies dysuria Musculoskeletal Musculoskeletal: Denies back pain, Denies numbness and Reports other (R rib and back pain) Integumentary/Breasts Skin/Breast: Denies lesions and Denies rash Neurologic Neurologic: Denies dizziness, Denies localized weakness and Denies numbness Allergic/Immunologic Allergic/Immunologic: Denies throat swelling PFSH All Active Problems (Updated 12/01/21 @ 14:57 by Jennifer Cunningham DO) Fracture, ribs (Acute) Elevated PSA, greater than or equal to 20 ng/ml (Acute) Medical History (Updated 12/01/21 @ 14:57 by Jennifer Cunningham DO) Male erectile disorder Prostate cancer Urinary retention due to benign prostatic hyperplasia Surgical History (Updated 12/01/21 @ 14:53 by Jennifer Cunningham DO) History of surgery on extremity Social History (Updated 08/12/18 @ 08:16 by Danielle Salcedo RN) Smoking/Tobacco Use Status: Current every day Smoking risk assessment performed?: Yes Alcohol Intake: current Alcohol Intake frequency: holidays/special occasions only Drug use: Never Substance use type: does not use Do you feel safe in your relationship?: Yes Exam Const General: cooperative, healthy appearing and no acute distress [facility] Head: normal to inspection Face and sinus: normal facial exam Eyes General: appearance normal, both eyes and all related structures EOM: EOM intact bilaterally Neck Neck: normal visual inspection and No submandibular swelling Lymphatic: no lymphadenopathy noted Chest Chest: normal inspection of the chest Chest/axillae images: 1. Tenderness to palpation to right anterior and lateral inferior ribs. No obvious step-offs. No open wounds noted. No crepitus noted. Resp Effort & Inspection: normal respiratory effort and able to speak in complete sentences Auscultation: clear to auscultation bilaterally Cardio Rate: regular rate Rhythm: regular rhythm GI Inspection: normal to inspection Palpation: soft, not firm, not rigid and nontender Auscultation: normal bowel sounds Back/Spine/Pelvis Back/spine/pelvis image: 1. Location of pain with movement. No significant tenderness to palpation. No open wounds or crepitus. Skin General skin exam: no rashes or lesions noted Neuro General: patient alert, patient awake and patient oriented x3 Cognition: normal cognition Speech: speech normal Motor: muscle tone normal throughout Sensory Exam: no sensory deficits noted Extrem General: normal to inspection, full ROM, capillary refill normal, no calf tenderness bilaterally and no edema Other: No pain in right upper extremity with range of motion or palpation. Right radial and ulnar pulses intact. Psych Appearance: grossly normal Mental Status: mental status grossly normal Speech and Movement: speech and movement normal Affect: normal affect Course Vital Signs Vital signs: Vital Signs Temperature 97.5 F L 12/01/21 13:08 Pulse 85 12/01/21 13:08 Respiratory Rate 16 12/01/21 13:08 Blood Pressure 170/92 H 12/01/21 13:08 Pulse Oximetry 98 12/01/21 13:08 Temperature 97.5 F L 12/01/21 13:08 Temperature Source Temporal Artery Scan 12/01/21 13:08 Pulse 85 12/01/21 13:08 Respiratory Rate 16 12/01/21 13:08 Respiratory Effort 12/01/21 13:23 Respiratory Depth Normal 12/01/21 13:23 Respiratory Pattern Normal 12/01/21 13:23 Blood Pressure 170/92 H 12/01/21 13:08 Blood Pressure Position Sitting 12/01/21 13:08 Pulse Oximetry 98 12/01/21 13:08 Oxygen Delivery Method Room Air 12/01/21 13:08 Oxygen Flow Rate 0 12/01/21 13:08 Pain Level 0 12/01/21 13:23 PAWSS Have you Been Recently Intoxicated or Drunk Within the Last 30 days?: No Have you Ever Experienced Previous Episodes of Alcohol Withdrawal?: No Have you ever Experienced Withdrawal Seizures?: No Have you ever Experienced Delirium Tremens(DT)s?: No Have you ever undergone Alcohol Rehabilitation Treatment (i.e, inpt ot outpatient treatment programs)?: No Have you ever Experienced Blackouts?: No Have you ever Combined Alcohol with other Downers within the last 90 days?: No Have you ever Combined Alcohol with any other Substance of Abuse during the last 90 days?: No Positive Blood Alcohol level on Presentation? [PCS.BAL]: No Evidence of Increased Autonomic Activity (i.e. HR>120, tremor, sweating, agitation, nausea)?: No Result: 0
--- NOTE | 2021-12-01 13:45 | DI.RAD_ITS ---
Exam(s) XR RIBS RT W PA LAT CHEST EXAM: XR RIBS RT W PA LAT CHEST CLINICAL HISTORY: fall onto R ribs, r/o fx TECHNIQUE: 2D digital imaging was performed. COMPARISON: CR XR CHEST 2V PA LATERAL from 10/31/2020 FINDINGS: MEDIASTINUM: Normal. HEART: Normal. PULMONARY VASCULATURE: Normal. LUNGS: No focal consolidating infiltrates. Scarring is again seen in the left lingula. Plate atelec tasis is seen in the right lung base. PLEURAL SPACE: No pleural effusion or pneumothorax. BONE:Normal. RIGHT RIBS: There is a mildly displaced fracture of the posterior aspect of the right 8th rib. There is also nondisplaced fracture of the lateral aspect of the right 4th rib. OTHER FINDINGS:Normal. IMPRESSION: 1. No acute pulmonary findings. 2. Fractures involving the right 8th and 4th ribs. 3. No pneumothorax. Right basilar atelectasis. DATA REPOSITORY: RADIATION DOSE DELIVERED:
[2021-12-01] MEDS: oxyCODONE 5 MG TAB PO (14:04)
[2021-12-01] MEDS: Ibuprofen 600 MG TAB PO (14:04)
--- NOTE | 2021-12-01 14:35 | DI.VRAD_ITS ---
PROCEDURE INFORMATION: Exam: XR Right Ribs Exam date and time: 12/01/2021 1:52 PM Age: 76 years old Clinical indication: Chest wall pain and right-sided; Other: RT sided rib pain TECHNIQUE: Imaging protocol: XR Right ribs. Views: 2 views. COMPARISON: CT NM BONE SCAN WHOLE BODY [facility] 27/10/2020 08:57 FINDINGS: Bones/joints: Oblique views of the right hemithorax demonstrate fractures of the 8th posterior and 4th lateral ribs. Soft tissues: Small right pleural effusion is present. IMPRESSION: Right 4th and 8th rib fractures. PROCEDURE INFORMATION: Exam: XR Chest Exam date and time: 12/01/2021 1:52 PM Age: 76 years old Clinical indication: Chest wall pain and right-sided; Other: RT sided rib pain TECHNIQUE: Imaging protocol: XR of the chest. Views: 2 views. COMPARISON: CT NM BONE SCAN WHOLE BODY [facility] 27/10/2020 08:57 FINDINGS: Lungs: Lungs are clear with no focal infiltrate or nodule. Pleural spaces: Trace right-sided pleural effusion is present. There is no pneumothorax. Heart/Mediastinum: Cardiomediastinal silhouette is normal. Bones/joints: Right-sided rib fractures are present. See above. IMPRESSION: No active cardiopulmonary disease. Dictated and Authenticated by: Joe Askew MD. Ordering:MARIA Rodriguez MD
[2021-12-01 15:18] VITALS: BP 162/81; PULSE 82; RESP 16; TEMP 36.4; O2SAT 98
== END 2021-12-01 15:17 | disposition home or self-care (01) ==
PROVIDERS: Emergency Provider Physician Assistant
DX: S22.41XA Multiple fractures of ribs, right side, initial encounter for closed fracture (principal); W18.39XA Other fall on same level, initial encounter
CPT/HCPCS: 99283; 71046; 71100

== ENCOUNTER 2022-02-19 03:18 | Outpatient (CLI) | payer MEDICARE, SELFPAY ==
[2022-02-20 21:00] LABS: PSA, Ultrasensitive <0.01 ng/mL (<= 6.5)
[2022-02-21 14:11] LABS: Testosterone, Total 7.5 ng/dL (240-950)
== END 2022-02-19 03:19 | disposition home or self-care (01) ==
LOC: LBO 03:18
PROVIDERS: Visit Provider Urology
DX: C61 Malignant neoplasm of prostate (principal)
CPT/HCPCS: 36415; 84153; 84403

== ENCOUNTER → 2022-02-26 08:20 | Outpatient (BNVA) | payer MEDICARE, SELFPAY | PROVIDERS: Visit Provider Urology | DX: C61 Malignant neoplasm of prostate (principal) | CPT/HCPCS: 99214 ==

== ENCOUNTER 2022-05-14 03:04 | Outpatient (CLI) | payer MEDICARE, SELFPAY ==
[2022-05-14 17:52] LABS: PSA, Diagnostic <0.1 ng/mL (<=6.5)
[2022-05-20 20:15] LABS: Testosterone, Total 10 ng/dL (240-950)
== END 2022-05-14 03:05 | disposition home or self-care (01) ==
PROVIDERS: Visit Provider Urology
DX: C61 Malignant neoplasm of prostate (principal)
CPT/HCPCS: 36415; 84403; 84153

== ENCOUNTER → 2022-05-21 08:29 | Outpatient (BNVA) | payer MEDICARE, SELFPAY | PROVIDERS: Visit Provider Urology | DX: C61 Malignant neoplasm of prostate (principal) | CPT/HCPCS: 96402; J9217 ==

== ENCOUNTER 2022-08-19 02:57 | Outpatient (CLI) | payer MEDICARE, SELFPAY ==
[2022-08-19 18:40] LABS: PSA, Diagnostic <0.1 ng/mL (<=6.5)
[2022-08-22 15:21] LABS: Testosterone, Total 11 ng/dL (240-950)
== END 2022-08-19 02:58 | disposition home or self-care (01) ==
LOC: LBO 02:57
PROVIDERS: Visit Provider Urology
DX: C61 Malignant neoplasm of prostate (principal)
CPT/HCPCS: 36415; 84403; 84153

== ENCOUNTER → 2022-08-27 13:49 | Outpatient (BNVA) | payer MEDICARE, SELFPAY | PROVIDERS: Visit Provider Urology | DX: C61 Malignant neoplasm of prostate (principal) | CPT/HCPCS: 99214 ==

== ENCOUNTER 2022-09-04 18:06 | Emergency (ER) | payer MEDICARE, SELFPAY ==
[2022-09-04] VITALS (42 sets, daily range): BP systolic 156–213; BP diastolic 75–117; PULSE 63–91; RESP 13–24; TEMP 36.6; O2SAT 96–100
--- NOTE | 2022-09-04 18:15 | RT.EKG_ITS ---
APPROVED REPORT Exam: Resting ECG Reason for Exam: dizziness Patient Location: E HR:87 bpm ECG Measurements Heart Rate 87 AXIS MO 164 P 55 QRSd 89 QRS -1 QT 394 T 38 QTc 475 Conclusion Sinus rhythm...normal P axis, V-rate 60- 99. Sinus. No STEMI. I have reviewed and interpreted ECG and agree with software generated interpretation.
[2022-09-04 19:03] LABS: Abs Immature Grans 0.01 10^3/uL (0.0-0.06); Absolute Basophil Count 0.03 10^3/uL (0.0-0.2); Absolute Eosinophil Count 0.07 10^3/uL (0.0-0.7); Absolute Lymphocyte Count 0.71 10^3/uL (1.2-3.4); Absolute Monocyte Count 0.27 10^3/uL (0.1-0.8); Absolute Neutrophil Count 2.57 10^3/uL (1.2-6.7); Basophils % 0.8; Eosinophils % 1.9; HCT 37.8 % (40.0-50.0); HGB 12.7 g/dL (13.5-17.5); Immature Grans % 0.3; Lymphocytes % 19.4; MCHC 33.6 % (32.0-36.0); MCV 92 fL (80-95); Monocytes % 7.4; Neutrophils % 70.2; RDW 13.2 % (11.8-14.1); RDW-SD 45.2 fL; WBC 3.66 10^3/uL (4.4-10.8)
--- NOTE | 2022-09-04 19:15 | DI.CT_ITS ---
Exam(s) CT BRAIN NECK CTA EXAM: CT BRAIN NECK CTA CLINICAL HISTORY: dizziness, hypertension, r/o acute cva. TECHNIQUE: Imaging Protocol: Axial CT angiography was performed with multi-slice acquisition and mu lti-planar and/or 3D reconstructions. CONTRAST MATERIAL: Intravenous: Omnipaque 350 contrast volume:85 mL COMPARISON: None. FINDINGS: There was infiltration of the IV. Therefore, the postcontrast CT brain and CT angiography of the hea d neck are non diagnostic. CT Head W/O and W: Ventricles and Extra axial spaces: Normal in size and morphology for the patient's age. Hemorrhage: None. Cerebral parenchyma: There is no evidence of an acute territorial infarct. Midline shift: None. Brainstem/Cerebellum: Normal. Calvarium: Normal. Visualized Paranasal sinuses/Mastoids: Mucous retention cysts or polyps are seen in the maxillary sin uses bilaterally. The remaining visualized paranasal sinuses and mastoid air cells are clear. Soft Tissues: Unremarkable. Enhancement: Unremarkable. Lung Apices: Normal. Bones: Within normal limits for the patient's age. Soft Tissues: Normal. Thyroid gland: Unremarkable. IMPRESSION: 1. There is infiltration of the IV. Therefore the postcontrast CT brain and CT angiography of the he ad neck or nondiagnostic. 2. No acute intracranial process. RADIATION DOSE DELIVERED: 2,973.26mGy.cm Total DLP DATA REPOSITORY: All CT scans at this facility are submitted to the National Radiology Data Registry (NRDR) Dose Index Registry (DIR) with the [employer] (ACR). RADIATION OPTIMIZATION: All CT scans at this facility use at least one of these dose optimization te chniques: automated exposure control; mA and/or kV adjustment per patient size (includes targeted exa ms where dose is matched to clinical indication); or iterative reconstruction.
[2022-09-04 19:18] LABS: ALT 23 U/L (16-63); AST 31 U/L (15-37); Albumin 3.8 g/dL (3.4-5.0); Alkaline Phosphatase 79 U/L (46-116); Anion Gap 5.4 mmol/L (3-11); BUN 14 mg/dL (7-18); Bilirubin, Total 0.4 mg/dL (0.2-1.0); CO2 28.6 mmol/L (21.0-32.0); CREATININE 0.8 mg/dL (0.70-1.30); Calcium 9.3 mg/dL (8.5-10.1); Chloride 104 mmol/L (98-107); Estimated GFR 90.58 (mL/min/1.73m2); Glucose 171 mg/dL (74-106); Potassium 4.1 mmol/L (3.5-5.1); Sodium 138 mmol/L (136-145); Total Protein 7.4 g/dL (6.4-8.2); Troponin I < 50 ng/L (<or=60)
--- NOTE | 2022-09-04 19:19 | ED.GENADUL_ITS ---
Discharge Plan Disposition Patient Disposition: HOME Condition: Improving Discharge Details Clinical Impression: Accelerated hypertension, Dizziness, IV infiltration Primary Care Provider: Unknown,Unknown ED Provider: Jennifer Cunningham Home Meds and New Rx's Prescriptions: New hydrochlorothiazide 12.5 mg tablet 12.5 mg PO DAILY Qty: 30 0RF Continued tamsulosin [Flomax] 0.4 mg capsule 0.4 mg PO DAILY Qty: 90 3RF celecoxib [Celebrex] 200 mg capsule 200 mg PO DAILY Qty: 90 4RF Lupron Depot (6 Month) 45 mg Syringe Kit 45 mg IM [id number] Discharge Instructions Instructions: Hypertension (ED), Dizziness (ED) Additional Instructions: Your blood tests, EKG and imaging today are reassuring and show no evidence of acute concerning or significant findings. Incidentally your IV infiltrated with contrast during your CT scan imaging today. Be sure to elevate your right arm as much as possible over the next 24 to 48 hours. You can apply hot or cool compresses to the area several times daily for 20 minutes at a time for the next 24-48 hours. You have been placed on care management list to arrange for a follow-up appointment with your primary care doctor within the next week for reevaluation and recheck of your blood pressure. A prescription for the blood pressure medication Hydrochlorothiazide has been sent electronically to your pharmacy to take as directed once daily. If your blood pressure remains within normal limits tomorrow, you do not need to start this blood pressure medication. If your blood pressure remains greater than 160/90, you can start taking the blood pressure medication as directed. Return immediately to the emergency department if you develop any worsening or new concerning symptoms. Discharge Data Discharge Physician: Jennifer Cunningham Medical Decision Making 1819 -- 77-year-old male with history of prostate cancer in remission presents for intermittent dizziness since yesterday and high blood pressure at home today. BP on arrival 213/91. Upon my assessment, blood pressure 153/94. Patient is currently asymptomatic. EKG notes a rate of 87, sinus, no STEMI nondiagnostic. He has no focal deficits on exam. Considering his age and history, differential diagnosis with CVA in the setting of hypertension urgency, TIA, electrolyte abnormality, ACS, dehydration. Will obtain screening labs, CTA head and neck. 1999 -- While in radiology, contrast was injected but no was evident on the CT head or neck imaging. This was confirmed with radiology report who recommends repeat CTA head and neck. converting technician did not note any infiltration of IV in the right AC and patient denies any right arm pain but feels his right arm is full feeling. Radiologist is recommending right humerus x-ray to assess for contrast in addition to chest x-ray. They are recommending to rescan CTA head and neck. Patient was informed and is agreeable. Right humerus x-ray reveals extensive extravasation of contrast. Per guidelines from radiology, will apply warm compresses and keep right upper extremity elevated. Chest x-ray negative for acute disease. He has an IV in the Left AC. 2144 -- CTA head and neck negative. Patient reassessed and he has no acute complaints. BP. 192/117. We will continue to monitor BP. 2229 -- BP 180/107. Will give a low dose of HCTZ PO and recheck BP. 231 -- blood pressure 166/83. Patient remains asymptomatic. Patient would like to go home. He was able to ambulate to the bathroom several times without dizziness. His right arm is mildly edematous but without induration or significant tenderness. He denies any complaints of pain in his right arm. He is advised to elevate and apply hot or cold compresses to his right arm as much as possible over the next 24 to 48 hours. Patient placed on care management list to arrange for follow-up appoint with his primary care doctor within the next week. A prescription for hydrochlorothiazide sent electronically to his pharmacy. Usual and customary return precautions given prior to discharge. 2330 --as patient was walking out upon discharge, felt like he was walking off balance and walked into a wall. Patient denies any dizziness. He was brought back to the room for evaluation and blood pressure 193/100. Patient would like to go home. Will continue to monitor for short amount of time and recheck blood pressure. If he continues to feel better and has no dizziness with ambulation, and his blood pressure improves, will discharge to home. If he is symptomatic with persistent high blood pressure, consider continued evaluation or admission. Medical Records Medical records reviewed: Yes I reviewed the patient's medical records. Imaging Data Radiologic Study: Radiologist's impression: CTA Head With Contrast, Arteriography Exam date and time: 09/04/2022 9:16 PM Age: 77 years old Clinical indication: Dizziness and giddiness TECHNIQUE: Imaging protocol: Computed tomographic angiography of the head with contrast. Exam focused on the arteries. 3D rendering (Not supervised by radiologist): MIP and/or 3D reconstructed images were created by the technologist. Radiation optimization: All CT scans at this facility use at least one of these dose optimization techniques: automated exposure control; mA and/or kV adjustment per patient size (includes targeted exams where dose is matched to clinical indication); or iterative reconstruction. Contrast material: OMNIPAQUE 350; Contrast volume: 85 ml; Contrast route: INTRAVENOUS (IV);? COMPARISON: CT BRAIN NECK CTA 09/04/2022 7:38 PM FINDINGS: ANTERIOR CIRCULATION: Right internal carotid artery: Intracranial segment is patent with no significant stenosis. No aneurysm. Right middle cerebral artery: No occlusion or significant stenosis. No aneurysm.? Right anterior cerebral artery: No occlusion or significant stenosis. No aneurysm.? Left internal carotid artery: Intracranial segment is patent with no significant stenosis. No aneurysm. Left middle cerebral artery: No occlusion or significant stenosis. No aneurysm. ? Left anterior cerebral artery: No occlusion or significant stenosis. No aneurysm.? POSTERIOR CIRCULATION: Right vertebral artery: No occlusion or significant stenosis. No aneurysm.? Left vertebral artery: No occlusion or significant stenosis. No aneurysm.? Basilar artery: No occlusion or significant stenosis. No aneurysm. Right posterior cerebral artery: No occlusion or significant stenosis. No aneurysm.? Left posterior cerebral artery: No occlusion or significant stenosis. No aneurysm.? IMPRESSION: No intracranial arterial occlusion or significant stenosis. CTA Neck With Contrast Exam date and time: 09/04/2022 9:16 PM Age: 77 years old Clinical indication: Dizziness and giddiness TECHNIQUE: Imaging protocol: Computed tomographic angiography of the neck with contrast. 3D rendering (Not supervised by radiologist): MIP and/or 3D reconstructed images were created by the technologist. Contrast material: OMNIPAQUE 350; Contrast route: INTRAVENOUS (IV);? COMPARISON: CT BRAIN NECK CTA 09/04/2022 7:38 PM FINDINGS: Right common carotid artery: No significant stenosis. No dissection or occlusion. Right internal carotid artery: Atherosclerotic plaques involving the proximal extracranial right internal carotid artery without evidence of hemodynamically significant stenosis (0% stenosis by NASCET criteria). Right external carotid artery: No occlusion or significant stenosis. Left common carotid artery: No significant stenosis. No dissection or occlusion. Left internal carotid artery: Atherosclerotic plaques involving the proximal extracranial left internal carotid artery without evidence of hemodynamically significant stenosis (0% stenosis by NASCET criteria). Left external carotid artery: No occlusion or significant stenosis. Right vertebral artery: No significant stenosis. No dissection or occlusion. Left vertebral artery: No significant stenosis. No dissection or occlusion. Soft tissues: Unremarkable. Bones/joints: No acute fracture. IMPRESSION: No occlusion or significant stenosis in the arteries of the neck. XR Right Humerus Exam date and time: 09/04/2022 8:51 PM Age: 77 years old Clinical indication: Screening exam; Assess for contrast extravasation TECHNIQUE: Imaging protocol: Radiologic exam of the Right humerus. Views: 2 or more views. COMPARISON: CT NM BONE SCAN WHOLE BODY [facility] 10/27/2020 8:57 AM FINDINGS: Bones/joints: No acute fracture or dislocation. Joint spaces are unremarkable. Soft tissues: Extensive infiltrating contrast throughout soft tissues of the right arm, suspected intramuscular and subcutaneous. IMPRESSION: Extensive infiltrating contrast throughout soft tissues of the right arm, suspected intramuscular and subcutaneous. XR Chest Exam date and time: 09/04/2022 8:49 PM Age: 77 years old Clinical indication: Assess for contrast, R/O acute disease TECHNIQUE: Imaging protocol: Radiologic exam of the chest. Views: 2 views. COMPARISON: CR XR RIBS RT W PA LAT CHEST 12/01/2021 2:21 PM FINDINGS: Lungs: No focal areas of consolidation. Pleural spaces: Unremarkable. No pleural effusion. No pneumothorax. Heart/Mediastinum: Cardiac and mediastinal silhouettes are unremarkable. Bones/joints: Chronic healed right posterior 7th and 8th rib fractures. No acute fracture. IMPRESSION: No acute cardiopulmonary findings. Lab Data Lab results reviewed: Yes I reviewed the patient's lab results. Labs: Laboratory Tests Range/Units 09/04/22 09/04/22 18:40 18:40 WBC (4.4-10.8) 10^3/uL 3.66 L RBC (4.36-5.78) 10^6/uL 4.10 L Hgb (13.5-17.5) g/dL 12.7 L Hct (40.0-50.0) % 37.8 L MCV (80-95) fL 92 MCH (27.0-33.0) pg 31.0 MCHC (32.0-36.0) % 33.6 RDW (11.8-14.1) % 13.2 Plt Count (130-400) 10^3/uL MPV (8.0-11.0) fL Immature Gran % 0.3 Neutrophils % 70.2 Lymphocytes % 19.4 Monocytes % 7.4 Eosinophils % 1.9 Basophils % 0.8 Nucleated RBC % (0.0-0.3) % 0.0 Absolute Neutrophils (1.2-6.7) 10^3/uL 2.57 Absolute Lymphocytes (1.2-3.4) 10^3/uL 0.71 L Absolute Monocytes (0.1-0.8) 10^3/uL 0.27 Absolute Eosinophils (0.0-0.7) 10^3/uL 0.07 Absolute Basophils (0.0-0.2) 10^3/uL 0.03 RBC Morphology Normal Sodium (136-145) mmol/L 138 Potassium (3.5-5.1) mmol/L 4.1 Chloride (98-107) mmol/L 104 Carbon Dioxide (21.0-32.0) mmol/L 28.6 Anion Gap (3-11) mmol/L 5.4 BUN (7-18) mg/dL 14 Creatinine (0.70-1.30) mg/dL 0.8 Est GFR (CKD-EPI 2020) (mL/min/1.73m2) 90.58 Glucose (74-106) mg/dL 171 H Calcium (8.5-10.1) mg/dL 9.3 Magnesium (1.8-2.4) mg/dL 2.0 Total Bilirubin (0.2-1.0) mg/dL 0.4 AST (15-37) U/L 31 ALT (16-63) U/L 23 Alkaline Phosphatase (46-116) U/L 79 Troponin I (<or=60) ng/L < 50 Total Protein (6.4-8.2) g/dL 7.4 Albumin (3.4-5.0) g/dL 3.8 ECG Data Attestation: I personally reviewed and interpreted this ECG (s) as follows: Interpretation: Rate of 87, sinus, no STEMI HPI General Mode of arrival: ambulatory . Date/Time Provider Initiated Documentation: 09/04/22 18:15 . Limitations to Documentation: no limitations . Information obtained by: patient . HPI Narrative: Pt is a 77yo M w/ a h/o prostate cancer in remission presents for intermittent dizziness since yesterday and high blood pressure at home today. Pt states his usual systolic blood pressure in between 130-150 and today his BP was 180/100. He admits to a lightheadedness feeling today at time of high blood pressure but denies any blurry vision, headache, facial droop, slurred speech, chest pain, shortness of breath, extremity weakness or numbness. Pt has never been diagnosed formally with hypertension and states he has never taken blood pressure medications. He states he has no symptoms at present and states he felt much better after eating dinner this evening as he states he has not eaten much today until dinnertime. He states he was busy but also did not have much of an appetite and felt a little quesy. He denies any nausea at this time. Related Data Home Medications Medication Instructions Recorded Confirmed celecoxib 200 mg capsule (Celebrex) 200 mg PO DAILY #90 caps 11/27/21 09/04/22 tamsulosin 0.4 mg capsule (Flomax) 0.4 mg PO DAILY #90 caps 11/27/21 09/04/22 hydrochlorothiazide 12.5 mg tablet 12.5 mg PO DAILY #30 tabs 09/04/22 leuprolide acetate (6 month) 45 mg 45 mg IM [id number] 09/04/22 09/04/22 intramuscular syringe kit (Lupron Depot) Previous Rx's Medication Instructions Recorded celecoxib 200 mg capsule (Celebrex) 200 mg PO DAILY #90 caps 11/27/21 tamsulosin 0.4 mg capsule (Flomax) 0.4 mg PO DAILY #90 caps 11/27/21 hydrochlorothiazide 12.5 mg tablet 12.5 mg PO DAILY #30 tabs 09/04/22 Allergies Allergy/AdvReac Type Severity Reaction Status Date / Time Penicillins Allergy Unknown Verified 09/04/22 18:15 codeine AdvReac Unverified 09/04/22 18:16 General Stated Complaint: GenMedical NICOLE: 3 Review of Systems All systems reviewed & are unremarkable except as noted in HPI and below Constitutional Constitutional: Reports as per HPI, Denies chills and Denies fever(s) Eyes Eyes: Denies blurry vision ENT Ears, Nose, Mouth, and Throat: Reports dizziness, Denies sore throat and Denies throat swelling Cardiovascular Cardiovascular: Denies chest pain and Denies dyspnea Respiratory Respiratory: Denies cough and Denies dyspnea Gastrointestinal Gastrointestinal: Denies abdominal pain, Denies diarrhea and Denies vomiting Genitourinary Genitourinary: Denies hematuria and Denies dysuria Musculoskeletal Musculoskeletal: Denies back pain and Denies numbness Integumentary/Breasts Skin/Breast: Denies lesions and Denies rash Neurologic Neurologic: Reports dizziness, Denies localized weakness and Denies numbness Allergic/Immunologic Allergic/Immunologic: Denies throat swelling PFSH All Active Problems (Updated 09/04/22 @ 23:06 by Jennifer Cunningham DO) Accelerated hypertension (Acute) Dizziness (Acute) IV infiltration (Acute) Prostate cancer (Chronic) Medical History (Updated 09/04/22 @ 23:06 by Jennifer Cunningham DO) Male erectile disorder Urinary retention due to benign prostatic hyperplasia Surgical History (Updated 12/01/21 @ 14:53 by Jennifer Cunningham DO) History of surgery on extremity Social History (Updated 08/12/18 @ 08:16 by Danielle Salcedo RN) Smoking/Tobacco Use Status: Current every day Tobacco Type: cigarettes Smoking risk assessment performed?: Yes Alcohol Intake: current Alcohol Intake frequency: holidays/special occasions only Drug use: Never Substance use type: does not use Do you feel safe at home: Yes Do you feel safe in your relationship?: Yes Additional Social history: at the bedside. Exam Const General: cooperative, healthy appearing and no acute distress Orientation: alert, awake and oriented x3 HENMT Head: normal to inspection Ears: hearing grossly normal bilaterally, external ears normal and TM's normal bilaterally Face and sinus: normal facial exam Eyes General: appearance normal, both eyes and all related structures Pupils: PERRL EOM: EOM intact bilaterally Neck Neck: normal visual inspection and No submandibular swelling Lymphatic: no lymphadenopathy noted Chest Chest: normal inspection of the chest and no tenderness Resp Effort & Inspection: normal respiratory effort and able to speak in complete sentences Auscultation: clear to auscultation bilaterally Cardio Rate: regular rate Rhythm: regular rhythm GI Inspection: normal to inspection Palpation: soft, not firm, not rigid and nontender Auscultation: hypoactive bowel sounds Male General Exam: Yes normal external exam Back/Spine/Pelvis Thoracic/Lumbar Spine: thoracic and lumbar spine normal to inspection Pelvis: no pain with anterior-posterior compression Skin General skin exam: no rashes or lesions noted Neuro General: patient alert, patient awake and patient oriented x3 Cognition: normal cognition Speech: speech normal Motor: muscle tone normal throughout Sensory Exam: no sensory deficits noted Extrem General: normal to inspection, full ROM, capillary refill normal, no calf tenderness bilaterally and no edema Psych Appearance: grossly normal Mental Status: mental status grossly normal Speech and Movement: speech and movement normal Affect: normal affect Course Vital Signs Vital signs: Vital Signs Temperature 98 F 09/04/22 18:11 Pulse 91 H 09/04/22 18:11 Respiratory Rate 18 09/04/22 18:11 Blood Pressure 213/91 H 09/04/22 18:11 Pulse Oximetry 96 09/04/22 18:11 Temperature 98 F 09/04/22 18:11 Temperature Source Oral 09/04/22 18:11 Pulse 78 09/04/22 19:06 Respiratory Rate 18 09/04/22 19:06 Respiratory Effort Non-Labored 09/04/22 18:24 Respiratory Depth Normal 09/04/22 18:24 Respiratory Pattern Normal 09/04/22 18:24 Blood Pressure 181/100 H 09/04/22 19:06 Blood Pressure Position Sitting 09/04/22 18:11 Pulse Oximetry 100 09/04/22 19:06 Oxygen Delivery Method Nasal Cannula 09/04/22 19:06 Oxygen Flow Rate 0 09/04/22 18:11 Pain Level 0 09/04/22 19:06
[2022-09-04 19:39] LABS: Diff Comment PLT Morph Reviewed; RBC Morphology Normal
[2022-09-04] MEDS: Omnipaque 350 MG/ML 100 ML BTL IJ (19:42)
[2022-09-04] MEDS: Normal Saline Flush 10 ML SYR IVP (19:44)
--- NOTE | 2022-09-04 20:00 | DI.CT_ITS ---
Exam(s) CT BRAIN NECK CTA EXAM: CT BRAIN NECK CTA CLINICAL HISTORY: dizziness, high bp, r/o cva. TECHNIQUE: Imaging Protocol: Axial CT angiography was performed with multi-slice acquisition and mu lti-planar and/or 3D reconstructions. CONTRAST MATERIAL: Intravenous: Omnipaque 350 contrast volume:85 mL COMPARISON: CT CT BRAIN NECK CTA from 09/04/2022 FINDINGS: CT Head W/O and W: Ventricles and Extra axial spaces: Normal in size and morphology for the patient's age. Hemorrhage: None. Cerebral parenchyma: Normal. Midline shift: None. Brainstem/Cerebellum: Normal. Calvarium: Normal. Visualized Paranasal sinuses/Mastoids: Clear. Soft Tissues: Unremarkable. Enhancement: Unremarkable. CTA Neck W: Common Carotid: Right: No dissection, occlusion or significant stenosis. Left: No dissection, occlusion or significant stenosis. External Carotid: Right: No occlusion or significant stenosis. Left: No occlusion or significant stenosis. Internal Carotid: Right: No dissection, occlusion or significant stenosis. Mild atherosclerosis at the origin. Left: No dissection, occlusion or significant stenosis. Mild atherosclerosis at the origin. Vertebral Artery: Right: No dissection, occlusion or significant stenosis. Mild atherosclerosis at the origin. Left: No dissection, occlusion or significant stenosis. Mild atherosclerosis at the origin. Lung Apices: Normal. Bones: Within normal limits for the patient's age. Soft Tissues: Normal. Thyroid gland: Unremarkable. CTA Brain W: Internal Carotid Arteries: Mild atherosclerosis. No significant stenosis or occlusion. No aneurysm is identified. Anterior Cerebral Arteries: Right: No aneurysm, occlusion or significant stenosis. Left: No aneurysm, occlusion or significant stenosis. Middle Cerebral Arteries: Right: No aneurysm, occlusion or significant stenosis. Left: No aneurysm, occlusion or significant stenosis. Posterior Cerebral Arteries: Right: No aneurysm, occlusion or significant stenosis. Left: No aneurysm, occlusion or significant stenosis. Vertebral Arteries: Right: No aneurysm, occlusion or significant stenosis. Left: No aneurysm, occlusion or significant stenosis. Basilar Artery: No aneurysm, occlusion or significant stenosis. IMPRESSION: 1. No large vessel occlusion or significant stenosis on the CT angiography of the head. 2. No acute intracranial process. 3. No occlusion or significant stenosis on the CT angiography of the neck. RADIATION DOSE DELIVERED: 1,854.48mGy.cm Total DLP DATA REPOSITORY: All CT scans at this facility are submitted to the National Radiology Data Registry (NRDR) Dose Index Registry (DIR) with the [employer] ([employer]). RADIATION OPTIMIZATION: All CT scans at this facility use at least one of these dose optimization te chniques: automated exposure control; mA and/or kV adjustment per patient size (includes targeted exa ms where dose is matched to clinical indication); or iterative reconstruction.
--- NOTE | 2022-09-04 20:00 | DI.RAD_ITS ---
Exam(s) XR HUMERUS RT EXAM: XR HUMERUS RT CLINICAL HISTORY: assess for contrast. TECHNIQUE: 2D digital imaging was performed of the right humerus. One images were obtained. AP vie ws were obtained. COMPARISON: No exams were available for comparison FINDINGS: BONES: No acute fracture is present. No bony destructive lesion is seen. Visualized portion of elbow and shoulder joints are unremarkable. SOFT TISSUE: There is infiltration of IV contrast in the soft tissues of the right upper extremity. IMPRESSION: Extensive infiltration of IV contrast in the soft tissues of the right upper extremity. DATA REPOSITORY: RADIATION DOSE DELIVERED:
--- NOTE | 2022-09-04 20:00 | DI.RAD_ITS ---
Exam(s) XR CHEST 2V PA LATERAL EXAM: XR CHEST 2V PA LATERAL CLINICAL HISTORY: assess for contrast, r/o acute disease TECHNIQUE: 2D digital imaging was performed of the chest. Two images were obtained. PA and lateral views were obtained. COMPARISON: CR XR CHEST 2V PA LATERAL from 10/31/2020 CR,XR XR RIBS RT W PA LAT CHEST from 12/01/2021 FINDINGS: MEDIASTINUM: Normal. HEART: Normal. PULMONARY VASCULATURE: Normal. LUNGS: Clear. PLEURAL SPACE: No pleural effusion or pneumothorax. BONE:Within normal limits for the patient's age. There are old healed right rib fractures. OTHER FINDINGS:Normal. IMPRESSION: No acute pulmonary findings. DATA REPOSITORY: RADIATION DOSE DELIVERED:
--- NOTE | 2022-09-04 20:14 | DI.VRAD_ITS ---
PROCEDURE INFORMATION: Exam: CTA Head With Contrast, Arteriography Exam date and time: 09/04/2022 7:38 PM Age: 77 years old Clinical indication: Stroke-like symptoms; Other: Dizziness, hypertension R/O CVA TECHNIQUE: Imaging protocol: Computed tomographic angiography of the head with contrast. Exam focused on the arteries. 3D rendering (Not supervised by radiologist): MIP and/or 3D reconstructed images were created by the technologist. Contrast material: OMNIPAQUE 350; Contrast volume: 85 ml; Contrast route: INTRAVENOUS (IV); COMPARISON: CT NM BONE SCAN WHOLE BODY [facility] 10/27/2020 8:57 AM FINDINGS: Intracranial arteries could not be assessed due to lack of intravascular contrast. No ventriculomegaly. No acute fracture. Soft tissues are unremarkable. IMPRESSION: Nondiagnostic CTA head. Recommend repeat CTA head versus MRA head, as clinically indicated. PROCEDURE INFORMATION: Exam: CTA Neck With Contrast Exam date and time: 09/04/2022 7:38 PM Age: 77 years old Clinical indication: Stroke-like symptoms; Other: Dizziness, hypertension R/O CVA TECHNIQUE: Imaging protocol: Computed tomographic angiography of the neck with contrast. 3D rendering (Not supervised by radiologist): MIP and/or 3D reconstructed images were created by the technologist. Radiation optimization: All CT scans at this facility use at least one of these dose optimization techniques: automated exposure control; mA and/or kV adjustment per patient size (includes targeted exams where dose is matched to clinical indication); or iterative reconstruction. Contrast material: OMNIPAQUE 350; Contrast route: INTRAVENOUS (IV); COMPARISON: CT NM BONE SCAN WHOLE BODY [facility] 10/27/2020 8:57 AM FINDINGS: Arteries of the neck could not be assessed due to lack of intravascular contrast. Soft tissues are unremarkable. Partially visualized lungs are clear. No acute fracture. IMPRESSION: Nondiagnostic CTA neck. Recommend repeat CTA neck versus MRA neck, as clinically indicated. REFERENCES: NASCET CRITERIA. The degree of stenosis in the cervical segment of the internal carotid artery is based on NASCET criteria. Normal is no stenosis. Mild is less than 50% stenosis. Moderate is 50-69% stenosis. Severe is 70% to 99% stenosis. Total occlusion is no detectable patent lumen. Dictated and Authenticated by: Justin Melgoza MD. Ordering:MARIA Rodriguez MD
--- NOTE | 2022-09-04 20:59 | DI.VRAD_ITS ---
PROCEDURE INFORMATION: Exam: XR Chest Exam date and time: 09/04/2022 8:49 PM Age: 77 years old Clinical indication: Assess for contrast, R/O acute disease TECHNIQUE: Imaging protocol: Radiologic exam of the chest. Views: 2 views. COMPARISON: CR XR RIBS RT W PA LAT CHEST 12/01/2021 2:21 PM FINDINGS: Lungs: No focal areas of consolidation. Pleural spaces: Unremarkable. No pleural effusion. No pneumothorax. Heart/Mediastinum: Cardiac and mediastinal silhouettes are unremarkable. Bones/joints: Chronic healed right posterior 7th and 8th rib fractures. No acute fracture. IMPRESSION: No acute cardiopulmonary findings. Dictated and Authenticated by: Justin Melgoza MD. Ordering:MARIA Rodriguez MD
--- NOTE | 2022-09-04 21:03 | DI.VRAD_ITS ---
PROCEDURE INFORMATION: Exam: XR Right Humerus Exam date and time: 09/04/2022 8:51 PM Age: 77 years old Clinical indication: Screening exam; Assess for contrast extravasation TECHNIQUE: Imaging protocol: Radiologic exam of the Right humerus. Views: 2 or more views. COMPARISON: CT NM BONE SCAN WHOLE BODY [facility] 10/27/2020 8:57 AM FINDINGS: Bones/joints: No acute fracture or dislocation. Joint spaces are unremarkable. Soft tissues: Extensive infiltrating contrast throughout soft tissues of the right arm, suspected intramuscular and subcutaneous. IMPRESSION: Extensive infiltrating contrast throughout soft tissues of the right arm, suspected intramuscular and subcutaneous. Dictated and Authenticated by: Justin Melgoza MD. Ordering:MARIA Rodriguez MD
--- NOTE | 2022-09-04 21:50 | DI.VRAD_ITS ---
PROCEDURE INFORMATION: Exam: CTA Head With Contrast, Arteriography Exam date and time: 09/04/2022 9:16 PM Age: 77 years old Clinical indication: Dizziness and giddiness TECHNIQUE: Imaging protocol: Computed tomographic angiography of the head with contrast. Exam focused on the arteries. 3D rendering (Not supervised by radiologist): MIP and/or 3D reconstructed images were created by the technologist. Radiation optimization: All CT scans at this facility use at least one of these dose optimization techniques: automated exposure control; mA and/or kV adjustment per patient size (includes targeted exams where dose is matched to clinical indication); or iterative reconstruction. Contrast material: OMNIPAQUE 350; Contrast volume: 85 ml; Contrast route: INTRAVENOUS (IV); COMPARISON: CT BRAIN NECK CTA 09/04/2022 7:38 PM FINDINGS: ANTERIOR CIRCULATION: Right internal carotid artery: Intracranial segment is patent with no significant stenosis. No aneurysm. Right middle cerebral artery: No occlusion or significant stenosis. No aneurysm. Right anterior cerebral artery: No occlusion or significant stenosis. No aneurysm. Left internal carotid artery: Intracranial segment is patent with no significant stenosis. No aneurysm. Left middle cerebral artery: No occlusion or significant stenosis. No aneurysm. Left anterior cerebral artery: No occlusion or significant stenosis. No aneurysm. POSTERIOR CIRCULATION: Right vertebral artery: No occlusion or significant stenosis. No aneurysm. Left vertebral artery: No occlusion or significant stenosis. No aneurysm. Basilar artery: No occlusion or significant stenosis. No aneurysm. Right posterior cerebral artery: No occlusion or significant stenosis. No aneurysm. Left posterior cerebral artery: No occlusion or significant stenosis. No aneurysm. IMPRESSION: No intracranial arterial occlusion or significant stenosis. PROCEDURE INFORMATION: Exam: CTA Neck With Contrast Exam date and time: 09/04/2022 9:16 PM Age: 77 years old Clinical indication: Dizziness and giddiness TECHNIQUE: Imaging protocol: Computed tomographic angiography of the neck with contrast. 3D rendering (Not supervised by radiologist): MIP and/or 3D reconstructed images were created by the technologist. Contrast material: OMNIPAQUE 350; Contrast route: INTRAVENOUS (IV); COMPARISON: CT BRAIN NECK CTA 09/04/2022 7:38 PM FINDINGS: Right common carotid artery: No significant stenosis. No dissection or occlusion. Right internal carotid artery: Atherosclerotic plaques involving the proximal extracranial right internal carotid artery without evidence of hemodynamically significant stenosis (0% stenosis by NASCET criteria). Right external carotid artery: No occlusion or significant stenosis. Left common carotid artery: No significant stenosis. No dissection or occlusion. Left internal carotid artery: Atherosclerotic plaques involving the proximal extracranial left internal carotid artery without evidence of hemodynamically significant stenosis (0% stenosis by NASCET criteria). Left external carotid artery: No occlusion or significant stenosis. Right vertebral artery: No significant stenosis. No dissection or occlusion. Left vertebral artery: No significant stenosis. No dissection or occlusion. Soft tissues: Unremarkable. Bones/joints: No acute fracture. IMPRESSION: No occlusion or significant stenosis in the arteries of the neck. REFERENCES: NASCET CRITERIA. The degree of stenosis in the cervical segment of the internal carotid artery is based on NASCET criteria. Normal is no stenosis. Mild is less than 50% stenosis. Moderate is 50-69% stenosis. Severe is 70% to 99% stenosis. Total occlusion is no detectable patent lumen. Dictated and Authenticated by: Justin Melgoza MD. Ordering:MARIA Rodriguez MD
[2022-09-04] MEDS: Normal Saline 250 ML IV (22:07)
[2022-09-04] MEDS: hydroCHLOROthiazide 12.5 MG TAB PO (22:35)
--- NOTE | 2022-09-04 23:13 | NUR.NOTE ---
Referral to Care Management to establish primary care for new onset hypertension within a week. Patient would like to re establish with [facility] if at all possible. Nursing Note:
[2022-09-05 00:01] VITALS: BP 178/89; PULSE 89
--- NOTE | 2022-09-05 00:02 | NUR.NOTE ---
pt felt better and he walked out Nursing Note:
--- NOTE | 2022-09-05 16:31 | CMACTNOTE_ITS ---
- If Service Date Differs Date of service: 09/05/22 Time of Service: 16:31 Care Management Activity Note Benitez is seen in the ED for new onset hypertension. At the request of ED provider, COLT coordinates a referral to Agustina Fontenot NP, of [facility], t-doc, to assist Benitez in obtaining a follow up appointment within a week.
== END 2022-09-05 00:04 | disposition home or self-care (01) ==
PROVIDERS: Emergency Provider Physician Assistant
DX: I16.0 Hypertensive urgency (principal); R42 Dizziness and giddiness; T80.89XA Other complications following infusion, transfusion and therapeutic injection, initial encounter
CPT/HCPCS: 70496; 70498; 80053; 93005; 96360; 99285; 71046; 73060; 83735; 84484; 85025; 93010; 99284; J3490

== ENCOUNTER 2022-09-11 23:19 | Outpatient (REF) | payer MEDICARE, SELFPAY ==
[2022-09-11 20:03] LABS: Abs Immature Grans 0.01 10^3/uL (0.0-0.06); Absolute Basophil Count 0.05 10^3/uL (0.0-0.2); Absolute Lymphocyte Count 0.79 10^3/uL (1.2-3.4); Absolute Monocyte Count 0.49 10^3/uL (0.1-0.8); Absolute Neutrophil Count 2.81 10^3/uL (1.2-6.7); Basophils % 1.2; Eosinophils % 2.4; HCT 38.8 % (40.0-50.0); HGB 12.8 g/dL (13.5-17.5); Immature Grans % 0.2; Lymphocytes % 18.6; MCV 94 fL (80-95); MPV 10.8 fL (8.0-11.0); Monocytes % 11.5; Neutrophils % 66.1; Platelet Count 197 10^3/uL (130-400); RBC 4.13 10^6/uL (4.36-5.78); RDW 13.3 % (11.8-14.1); RDW-SD 46.3 fL; WBC 4.25 10^3/uL (4.4-10.8)
[2022-09-11 20:10] LABS: ESR 31 mm/hr (0-20)
[2022-09-11 20:43] LABS: ALT 21 U/L (16-63); AST 17 U/L (15-37); Albumin 3.9 g/dL (3.4-5.0); Alkaline Phosphatase 86 U/L (46-116); Anion Gap 8.5 mmol/L (3-11); BUN 22 mg/dL (7-18); Bilirubin, Total 0.3 mg/dL (0.2-1.0); C-Reactive Protein 0.23 mg/dL (0.0-0.3); CO2 28.5 mmol/L (21.0-32.0); Calcium 9.3 mg/dL (8.5-10.1); Chloride 106 mmol/L (98-107); Estimated GFR 77.04 (mL/min/1.73m2); Folate 15.6 ng/mL (8.6-20.0); Glucose 119 mg/dL (74-106); Potassium 3.8 mmol/L (3.5-5.1); Sodium 143 mmol/L (136-145); TSH (W/Ref FT4) 2.22 uIU/mL (0.36-3.74); Total Protein 7.2 g/dL (6.4-8.2); Vitamin B12 410 pg/mL (193-986)
[2022-09-13 10:50] LABS: Lyme Ab w Rflx to Lyme Confirm Negative (Negative)
[2022-09-13 11:00] LABS: Syphilis Serology (RPR) Negative (Negative)
[2022-09-15 19:34] LABS: Anaplasma phagocytophilum Negative (Negative); B. miyamotoi PCR Negative (Negative); Babesia divergens/MO-1 Negative (Negative); Babesia duncani Negative (Negative); Babesia microti Negative (Negative); Ehrlichia chaffeensis Negative (Negative); Ehrlichia ewingii/canis Negative (Negative); Ehrlichia muris eauclairensis Negative (Negative)
== END 2022-09-11 23:20 | disposition home or self-care (01) ==
LOC: NCHCN 23:19
PROVIDERS: Visit Provider Nurse Practitioner Family
DX: R27.0 Ataxia, unspecified (principal)
CPT/HCPCS: 80053; 85652; 87798; 82607; 82746; 84443; 85025; 86140; 86592; 86618

== ENCOUNTER → 2022-09-17 13:44 | Outpatient (BNVA) | payer MEDICARE, SELFPAY | PROVIDERS: Visit Provider Psychiatry & Neurology Neurology | DX: F17.210 Nicotine dependence, cigarettes, uncomplicated (principal); I10 Essential (primary) hypertension; E11.9 Type 2 diabetes mellitus without complications; Z79.82 Long term (current) use of aspirin; R42 Dizziness and giddiness | CPT/HCPCS: 99214 ==

== ENCOUNTER → 2022-10-04 00:42 | Outpatient (CLI) | payer MEDICARE, SELFPAY ==
--- OUTSIDE RECORDS SUMMARY | 2022-10-04 00:46 | XMS_ITS | Encounter Summary ---
:1945 Author Organization [facility] [place] [address] Care Team Providers Name Role Phone Aletha Newell APRN Primary Care Provider Reason for Visit Reason Comments Injections Lupron High Dollar Medication (Routine) - Closed Specialty Diagnoses / Procedures Referred By Contact Refer red To Contact Hematology and Oncology Diagnoses Malignant neoplasm of prostate Fran Olmedo MD [facility] Hem Onc Infusion Procedures TC LEUPROLIDE ACETATE 7.5MG, FOR DEPOST SUSPENSION (LUPRON DEPOT) LEUPROLIDE ACETATE (LUPRON DEPOT) [address] [place] [address] [place] [id number] Referral ID Status Reason Start Date Expiration Date Visits Requ ested Visits Authorized [id number] Closed 04/11/2021 04/11/2022 99 99 Encounter Details Date Type Department Care Team Description 11/13/2021 Infusion Hematology Oncology at [facility] lignant neoplasm of [facility] prostate [address] [place] [address] [phone] Social History Tobacco Use Types Packs/Day Years Used Date Smoking Tobacco: Every Day Cigarettes 0.3 Smokeless Tobacco: Never Alcohol Use Standard Drinks/Week Comments Yes 0 (1 standard drink = 0.6 oz pure alcoho l) 1 -2 a month :gin and tonic Alcohol Habits Answer Date Recorded How often do you have a drink containing alcohol? Monthly or less 12/08/2020 How many drinks containing alcohol do you have on a 1 or 2 12/08/2020 typical day when you are drinking? How often do you have six or more drinks on one Never 12/08/2020 occasion? Sex Assigned at Date Recorded Not on file documented as of this encounter Progress Notes Nasrin Ansari RN - 11/13/2021 3:30 PM EST Infusion Note Diagnosis:Prostate Cancer Treatment: Lupron Injection Lupron 45 mg injected in left buttocks Patient saw Rain Anderson APRN prior to Lupron injection. He has no questions/concerns and is ready fortreatment today. Patient aware to call clinic with any questions or concerns. Plan: Return to clinic as scheduled. documented in this encounter Plan of Treatment Not on filedocumented as of this encounter Visit Diagnoses Diagnosis Malignant neoplasm of prostate documented in this encounter Administered Medications Inactive Administered Medications - up to 3 most recent administrations Medication Order MAR Action Action Date Dose Rate Site leuprolide (6 month) Given 11/13/2021 4:25 PM EST 45 mg Left Gluteal (LUPRON DEPOT) injection 45 mg 45 mg, Intramuscular, ONCE, 1 dose, On Fri11/13/21 at 1500, Routine, This agent is restricted to outpatient use. Is this drug being given as an outpatient? Yes documented in this encounter Care Teams Uppers Edge Burnisher Relationship Specialty Start Date End Date Aletha Newell APRN PCP - General Urology 12/27/20 [address] [place] [address] documented as of this encounter
--- OUTSIDE RECORDS SUMMARY | 2022-10-04 00:46 | XMS_ITS | Clinical Summary ---
:1945 Author Organization [facility] [place] [address] Care Team Providers Name Role Phone Aletha Newell APRN Primary Care Provider Allergies Active Allergy Reactions Severity Noted Date Comments Codeine Phosphate Head ache Medications Medication Sig Dispensed Refills Start Date End Date Status celecoxib (CELEBREX) 200MG = 1 0 08/11/2006 Active 200 mg capsule Capsule(s), PO, Once daily tamsulosin (Flomax) Take 0.8 mg by 0 Active 0.4 mg Capsule mouth every morning. ibuprofen Take 400 mg by 0 Activ e (Advil;Motrin) 200 mg mouth every 6 Tablet hours as needed for Pain. tadalafiL (CIALIS) 5 Take 5 mg by mouth 0 Active mg Tablet daily as needed. Active Problems Problem Noted Date Malignant neoplasm of prostate 12/06/2020 Cancer Staging: Clinical: Stage IIIA (cT 2, cN0, cM0, PSA: 115, Grade Group: 2) - Signed by Fran Espinosa MD on 12/06/2020 Social History Tobacco Use Types Packs/Day Years Used Date Smoking Tobacco: Every Day Cigarettes 0.3 Smokeless Tobacco: Never Tobacco Cessation: Ready to Quit: Yes Alcohol Use Standard Drinks/Week Comments Yes 0 [...] Assigned at Date Recorded Not on file Last Filed Vital Signs Vital Sign Reading Time Taken Comments Blood Pressure 196/88 11/13/2021 3:34 PM EST Pulse 75 11/13/2021 3:34 PM EST Temperature 36.4 ??C (97.5 ??F) 11/13/2021 3:34 PM EST Respiratory Rate 20 11/13/2021 3:34 PM EST Oxygen Saturation 100% 11/13/2021 3:34 PM EST Inhaled Oxygen Concentration - - Weight 79.4 kg (175 lb) 11/13/2021 3:34 PM EST Height 172.7 cm (5' 7.99) 11/13/2021 3:34 PM EST Body Mass Index 26.61 11/13/2021 3:34 PM EST Plan of Treatment Health Maintenance Due Date Last Done Comments Covid-19 Vaccine (#1) 1945 Pneumoccocal Vaccine: 65+ (1 - PCV) 1950 Hepatitis C Screening 1962 Tdap adult 1963 Tetanus vaccine 1963 Zoster vaccine (1 of 2) 1994 Advance Directive 1999 Influenza (Flu) vaccine (1 of 1 - Influenza standard 07/11/2022 series) Insurance Payer Benefit Plan / Subscriber ID Effective Dates Phone Addre ss Type Group [facility] [id number] 2020-Marissa [phone] [address] [address] MEDICARE MANAGED t [address] [place] COM[place]TE [id number] Advance Directives Documents on File Type Date Recorded Patient Sandblaster Stone Explanati on Personal Sandblaster Stone 01/30/2021 1:54 PM Migue n - Daughter Personal Sandblaster Stone 01/30/2021 1:55 PM Kayla - ance Care Teams Linen Room Houseperson Relationship Specialty Start Date End Date Aletha Newell, AQUATIC FACILITY MANAGER PCP - General Urology 12/27/[address] [place] [id number]
--- OUTSIDE RECORDS SUMMARY | 2022-10-04 00:46 | XMS_ITS | Encounter Summary ---
:1945 Author Organization [facility] [place] [address] Care Team Providers Name Role Phone Aletha Newell APRN Primary Care Provider Encounter Details Date Type Department Care Team Description 04/26/2021 Office Visit Radiation Oncology at Fran Espinosa M alignant neoplasm of [facility] prostate [address] [place], [place] RADIATION ONCOL OGY [address] [place], [place] [phone] (Wo rk) Social History Tobacco Use Types Packs/Day Years [...] on file documented as of this encounter Last Filed Vital Signs Vital Sign Reading Time Taken Comments Blood Pressure - - Pulse 80 04/26/2021 1:38 PM EDT Temperature 36.6 ??C (97.9 ??F) 04/26/2021 1:38 PM EDT Respiratory Rate 16 04/26/2021 1:38 PM EDT Oxygen Saturation 97% 04/26/2021 1:38 PM EDT Inhaled Oxygen Concentration - - Weight 79.2 kg (174 lb 9.6 oz) 04/26/2021 1:38 PM EDT Height - - Body Mass Index 26.55 03/29/2021 8:16 AM EDT documented in this encounter Progress Notes Fran Espinosa MD - 04/26/2021 1:30 PM EDT Images from the original note were not included. 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) Pager #[phone] PATIENT IDENTIFICATION Name Benitez Fang Date of 1945 PCP Aletha Newell APRN Referring MD (if different) Diagnosis High-Risk Prostate Cancer (PSA 115, Gl 3+4, cT2) NEOADJUVANT / CONCURRENT THERAPY: LT-ADT (planned 36 months) Lupron #1: (45mg) - 10/31/20 - from Dr Rojas INTENT OF THERAPY: Definitive (Curative) RADIATION TREATMENT DETAILS: Initial Treatment Site Pelvis, Entire SV and Prostate Prescribed Dose 45 Gy in 25 fractions Boost Treatment Site 1 Proximal SV and Prostate Prescribe Dose 68.4Gy in 38 fractions Boost Treatment Site 2 Prostate Prescribed Dose 79.2 Gy in 44 fractions Completion Date 04/11/21 INTERVAL HISTORY General Overall feels well. Here today for Lupron. GI No diarrhea. Nocturia 1 x/nt per baseline. Flomax 0.8mg qAM. Daytime frequency but no dysuria. Taking Cialis occasionally, Ibuprofen 400mg prn. Baseline IPSS history is listed below. Pain: Pain score today is 0/10. Prostate Today's Scores 12/08/2020 01/04/2021 Sexual Health Inventory for Men 1 (Severe ED) - International Prostate Symptom Score 21 (Severe LUTS) 4 ( Mild LUTS) MEDICATIONS Medications 04/26/21 1344 Medication Sig Taking? tamsulosin (Flomax) 0.4 mg Capsule Take 0.8 mg by mouth every morning. Yes ibuprofen (Advil;Motrin) 200 mg Tablet Take 400 mg by mouth every 6 hours as needed for Pain. Yes tadalafiL (CIALIS) 5 mg Tablet Take 5 mg by mouth daily as needed. Yes celecoxib (CELEBREX) 200 mg capsule 200MG = 1 Capsule(s), PO, Once daily Patient not taking: Reported on 04/26/2021 IMAGING / LABS LFTs 01/30/21 - WNL LFTs 03/08/21 - WNL PSA 04/19/21 - <0.01 T - <7 EXAM: Pulse 80 Temp 36.6 ??C (97.9 ??F) (Temporal) Resp 16 Wt 79.2 kg (174 lb 9.6 oz) SpO2 97% BMI 26.55 kg/m?? Constitutional: he appears well-developed and well-nourished. No distress. Performance Status: KPS Score ECOG Grade Definition X 90-100 0 Fully active, able to carry on all pre-disease performance without restriction 70-80 1 Restricted in physically strenuous activity but ambulatory and able to carry out work of a light or sedentary nature, e.g., light house work, office work 50-60 2 Ambulatory and capable of all selfcare but unable to carry out any work activities; up and about more than 50% of waking hours 30-40 3 Capable of only limited selfcare; confined to bed or chair more than 50% of waking hours 10-20 4 Completely disabled; cannot carry on any selfcare; totally confined to bed or chair IMPRESSION/PLAN Tolerance to radiotherapy/ADT: Recovering from RT as anticipated. Tolerated treatment very well. Discussed to stop casodex. Diarrhea: Rec LRD. Imodium prn. LUTS: Cont Flomax 0.8mg qAM, ibuprofen 400mg PRN. Cialis prn. Followup: RV 6 months for Lupron. Lab check prior. documented in this encounter Plan of Treatment Not on filedocumented as of this encounter Visit Diagnoses Diagnosis Malignant neoplasm of prostate documented in this encounter Care Teams Facsimile Machine Operator Relationship Specialty Start Date End Date Aletha Newell, [employer] HR DEVELOPER PCP - General Urology 12/27/20 [address] [place] [address] documented as of this encounter
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
--- OUTSIDE RECORDS SUMMARY | 2022-10-04 00:47 | XMS_ITS | Encounter Summary ---
:1945 Author Organization [facility] [place] [address] Care Team Providers Name Role Phone Aletha Newell APRN Primary Care Provider Encounter Details Date Type Department Care Team Description 02/22/2021 Office Visit Radiation Oncology at Jcarlos Leavitt M alignant neoplasm of [address] [address] [place] [address] [phone] Social History Tobacco Use Types Packs/Day Years Used Date Smoking Tobacco: Every Day Cigarettes 0.5 Smokeless Tobacco: Never Alcohol Use Standard Drinks/Week [...] Sign Reading Time Taken Comments Blood Pressure 185/91 02/22/2021 8:00 AM EDT Pulse 72 02/22/2021 8:00 AM EDT Temperature 36.5 ??C (97.7 ??F) 02/22/2021 8:00 AM EDT Respiratory Rate 20 02/22/2021 8:00 AM EDT Oxygen Saturation 99% 02/22/2021 8:00 AM EDT Inhaled Oxygen Concentration - - Weight 82 kg (180 lb 12.8 oz) 02/22/2021 8:00 AM EDT Height - - Body Mass Index - - documented in this encounter Progress Notes Jcarlos Leavitt MD - 02/22/2021 8:15 AM EDT Images from the original note were not included. 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 machine operator) Pager #[phone] PATIENT IDENTIFICATION Name Benitez Fang Date of 1945 PCP Aletha Newell APRN Referring MD (if different) Diagnosis High-Risk Prostate Cancer (PSA 115, Gl 3+4, cT2) NEOADJUVANT / CONCURRENT THERAPY: :LT-ADT (planned 36 months) Lupron #1: (45mg) - 10/31/20 INTENT OF THERAPY: Definitive (Curative) RADIATION TREATMENT DETAILS: Initial Treatment Site Pelvis, Entire SV and Prostate Prescribed Dose 45 Gy in 25 fractions Boost Treatment Site 1 Proximal SV and Prostate Prescribe Dose 68.4Gy in 38 fractions Boost Treatment Site 2 Prostate Prescribed Dose 79.2 Gy in 44 fractions Current Dose: 19.8 Gy in 11 fractions INTERVAL HISTORY General No changes since last seen. GI No diarrhea. Nocturia 1 x/nt at baseline. Stream might be weaker but he restarted taking Cialis and noted an improvement. Still taking flomax 0.8mg qAM. No dysuria. Baseline IPSS history is listed below. One episode of unable to start stream in nighttime. Pain: Pain score today is 0/10. Has neck pain related to the head-cup used for his treatment setup; taking ibuprofen daily. Prostate Today's Scores 12/08/2020 01/04/2021 Sexual Health Inventory for Men 1 (Severe ED) - International Prostate Symptom Score 21 (Severe LUTS) 4 ( Mild LUTS) MEDICATIONS Medications 02/22/21 0830 Medication Sig Taking? DM/p-ephed/acetaminoph/doxylam (NYQUIL ORAL) Take by mouth nightly as needed. Yes tamsulosin (Flomax) 0.4 mg Capsule Take 0.8 mg by mouth every morning. Yes ibuprofen (Advil;Motrin) 200 mg Tablet Take 400 mg by mouth every 6 hours as needed for Pain. Yes tadalafiL (CIALIS) 5 mg Tablet Take 5 mg by mouth daily. Yes bicalutamide (Casodex) 50 mg Tablet Start taking 1 pill daily today. You can stop when radiation is complete. Yes celecoxib (CELEBREX) 200 mg capsule 200MG = 1 Capsule(s), PO, Once daily Patient not taking: No sig reported IMAGING / LABS I have personally reviewed this patient's interval portal imaging to confirm accurate positioning and alignment which matches the patient's original approved treatment planning images. LFTs 01/30/21 Ref. Range 01/30/2021 11:20 Alk Phos Latest Ref Range: 40 - 130 unit/L 71 AST Latest Ref Range: 0 - 39 unit/L 16 ALT Latest Ref Range: 0 - 55 unit/L 17 EXAM: BP (!) 185/91 Pulse 72 Temp 36.5 ??C (97.7 ??F) Resp 20 Wt 82 kg (180 lb 12.8 oz) SpO2 99% Constitutional: he appears well-developed and well-nourished. No [...] bed or chair IMPRESSION/PLAN Tolerance to radiotherapy/ADT: Tolerating as anticipated. Continue as planned. Okay to add ibuprofen in the evening before bed, may help with nighttime symptoms. I will ask RTTs to use pillow or neck roll to help with his pain; should not affect pelvis positioning. Next Lupron due April. Next LFTs due week of 03/05. Followup: Return to clinic next week for on treatment check. documented in this encounter Plan of Treatment Not on filedocumented as of this encounter Visit Diagnoses Diagnosis Malignant neoplasm of prostate documented in this encounter Care Teams Director Mobile Relationship Specialty Start Date End Date Aletha Newell APRN PCP - General Urology 12/27/20 [address] [place] [address] documented as of this encounter
--- OUTSIDE RECORDS SUMMARY | 2022-10-04 00:47 | XMS_ITS | Encounter Summary ---
:1945 Author Organization [facility] [place] [address] Care Team Providers Name Role Phone Aletha Newell APRN Primary Care Provider Encounter Details Date Type Department Care Team Description 01/25/2021 Telephone Radiation Oncology at RekhaBrittney singer RN [address] [phone] Social History Tobacco Use Types [...] on file documented as of this encounter Miscellaneous Notes Telephone Encounter - Brittney Da Silva RN - 01/25/2021 2:04 PM EDT Radiation Oncology Post-Procedure Phone Note Name: Benitez Fang Miguel#: [id number] : 1945 Date/Time of Call: 01/25/21 Procedure: Placement of Gold Coil F[employer]ials & Space Oar gel Date of Procedure: 01/24/21 Spoke on the phone to: Patient If not patient, whom? x General condition as stated by the patient or designee: Excellent Good Fair Poor Other x Patient's only complaint is insomnia. He took dexamethasone BID yesterday as directed with the 2nd dose at 5:00 PM. Intervention: He was instructed to take the 2nd dose earlier , around 3 or 4:00 and to call clinic if this doesn't help. Patient verbalized understanding of these instructions. ??? The patient's pain is controlled:Patient Denies pain YES NO x Comments/intervention: ??? Patient denies tenderness / swelling in perineum/scrotum: YES NO x Comments/intervention: ??? Patient denies changes in urinary symptoms: YES NO x Comments/intervention: ??? Patient has questions re medications: YES NO x Comments/interventions: ??? Patient knows how to contact us in case of emergency: YES NO x Comments/interventions: Section Radiation Oncology [facility] documented in this encounter Plan of Treatment Not on filedocumented as of this encounter Visit Diagnoses Not on filedocumented in this encounter Care Teams Pull Tab Dealer Relationship Specialty Start Date End Date Aletha Newell APRN PCP - General Urology 12/27/20 [address] [place] [address] documented as of this encounter
--- OUTSIDE RECORDS SUMMARY | 2022-10-04 00:47 | XMS_ITS | Encounter Summary ---
:1945 Author Organization [facility] [place] [address] Care Team Providers Name Role Phone Aletha Newell APRN Primary Care Provider Reason for Referral Diagnostic Test (Routine) - Closed Specialty Diagnoses / Procedures Referred By Contact Refer red To Contact Radiology Diagnoses Malignant neoplasm of prostate Jd Quintero MD [facility] [place] Rad Mri Procedures MRI Pelvis wwo (Prostate) [address] [place] [address] [place] [address] [place], [place] [address] Referral ID Status Reason Start Date Expiration Date Visits V isits Requested Authorized [id number] Closed Specialty 12/08/2020 06/07/2022 1 1 Service Requested Reason for Visit Consultation (Routine) - Specialty Diagnoses / Procedures Referred By Contact Refer red To Contact Radiation Oncology Diagnoses Malignant neoplasm of prostate PROSTATE CANCER Oscar Rojas MD [place], Nirav S, MD Procedures TREATMENT [employer]IONS [address] [place] [address] [place], [place] RADIATION ON COLOGY [address] [place] [address] Phone: Fax: Referral ID Status Reason Start Date Expiration Date Visits V isits Requested Authorized [id number] Consult, Test 10/31/2020 05/01/2021 6 6 & Treat PCP Updated and/or Approved Encounter Details Date Type Department Care Team Description 12/08/2020 TH Visit Radiation Oncology Jd Quintero Mali gnant neoplasm of (TeleHealth) at [facility] MD prostate [address] [place], [place] RADIATION ONCOL OGY [address] [place], [place] [phone] [id number] Social History Tobacco Use Types Packs/Day Years Used Date Smoking Tobacco: Every Day Cigarettes 0.5 Smokeless Tobacco: Never Tobacco Cessation: Ready to [...] on file documented as of this encounter Patient Instructions Patient InstructionsJd Quintero MD - 12/08/2020 10:00 AM EST Dear Mr. Fang, Dr. Rojas asked for me to see you to discuss how radiation therapy can be used to treat your prostate cancer and this note is to recap our discussion regarding use of radiation treatments. As your radiation oncologist, I work closely with your other healthcare providers and most importantly, with you to make sure that the treatments we discuss and offer keep your personal preferences and goals in mind. We discussed the following next steps as part of your cancer evaluation and/or treatment: 1. The aggressiveness of your prostate cancer: You technically have high risk prostate cancer, which is a risk given to your cancer of coming back after treatment. This is based on three things 1. Your PSA (the blood test) was 115. PSA values below 10 are considered low risk and 10-20 are considered medium risk and above 20 are considered high risk. 2. Your highest [place] score was 7 (this is how aggressive your prostate cancer looks under the microscope). Jc scores for cancer range from 6-10, and 6 is considered lowest risk, while scores of8-10 are considered higher risk. 3. How aggressive your prostate cancer felt when Dr. Rojas did the prostate exam (through the rectum). He felt a nodule but we are still missing a picture of how your tumor looks on an MRI and I recommend that you get an MRI to understand where is the cancer relative to the borders of your prostate. This will also let us know if we can safely use the gel described below. The decision to treat prostate cancer is based on both the risk that the cancer can kill you and your general overall health. I agree with Dr. Rojas's recommendation that this should be treated since we would otherwise expect you to live a normal length of life. 2. Radiation Treatment Options: Radiation for your prostate cancer can be done in either 9 weeks with external beam radiation alone, or in 5 weeks of external beam radiation PLUS a radioactive seed implant. My sense is that based on the size of your prostate and your urinary function this is not a good idea, but if you'd like to consider this option, I can refer you to my colleague Dr. Rai in [place] for a further discussion. 3. Fiducial marker and SpaceOAR gel implants: If you decide to choose external beam radiation by itself, the first step will be for you to return to our clinic so that we can place small gold markers (called fiducials) into the prostate, which help us visualize the prostate on a daily basis prior to treating you with radiation. These small gold seeds are about the size of a grain of rice, and we willplace one into each side of the prostate. At the same time I will also implant a gel called SpaceOAR, which involves an injection of the gel into the space between the prostate and rectum, to decrease the amount of radiation that goes to the rectum. Some early data suggests it may be helpful in reducing radiation injury to the rectum. These procedures will be performed here in our clinic, and our nursing team will provide you instructions with how to prepare yourself. It takes approximately 2 hours from when you arrive to when you leave the building. We would not use the gel if there is evidence of prostate cancer spreading into the space between the prostate and rectum, and this is something wewould be able to see on the MRI I have recommended for you. 4. Radiation Therapy and Planning: Radiation therapy involves using high energy radiation which kills cancer but also normal healthy tissues. In order to make sure the radiation goes to the cancerous tissues and to also avoid radiating the normal tissues, we design radiation beams beams into special shapes which come from various different directions. Because no two people and no two cancers are completely identical, the radiation plan we create for you will be unique to you and your body. In order to figure out how many beams to use, how much radiation to give, which angles they should come from, and how they should be shaped, we have asked you to undergo 2 mapping scans: one is done here in our department known as a CT simulation, or CT sim, for short. This is essentially a CAT-scan similar to scans which you may have received before, but slightly different in a few ways: First, it allows usto place you in the exact same position which you should expect to be placed during each of your radiation treatment sessions. Second, it lets us better understand where the radiation targets and the normal tissues that we want to avoid exist, in relation to each other and the radiation beams. The second scan is a prostate MRI which will show us the position of the markers and improve our ability to see your prostate. Following these scans, we then perform additional calculations and measurements to create the absolute best plan possible for you. Depending on the complexity of the plan, these processes can take fromjust few hours to several days, and for that we ask for your patience. If you have any questions about the planning process or your custom radiation plan, I would be more than happy to review the plan with you during your first week of treatment. I anticipate you would receive 44 treatments total, daily Friday-Friday. Your start date and time would be provided once the simulation scan is completed. During your radiation treatments, you can expect to see me once per week so that I can examine you to make sure you are tolerating radiation treatments and so that we can monitor your response to treatment. 5. SIDE EFFECTS - Short Term: We discussed some common temporary side effects that you may experience during radiation. Common side effects may include irritative symptoms of the bladder or prostate, which can result in more frequent urination or defecation. Other common side effects mahy include weake usha urinary stream or burning with urination. If you experience any of these, please let us know so that we can help to treat them. These typically resolve within 4-6 weeks of completion radiation. 6. SIDE EFFECTS - Mechanic'S Assistant: These can include be permanent damage of the radiated tissues, including the rectum/bowel, bladder, prostate and surrounding tissues. Potential serious injury is rare, but can include poor wound healing, bleeding, or destruction of healthy tissue that may require surgery to repair and may result in a colostomy (bag for defecation) or urostomy (bag for urination). There may be a slow, chcf decrease in your sexual function as well, which is partly due to the aging process but also partly due to radiation side effects. This is typically responsive to medications like Viagra. Finally, there is a risk that radiation to your prostate increases the chance of getting another cancer caused by radiation, possibly of the prostate, bladder, rectum or surrounding tissues. This risk is overall quite low (approximately 1% above your normal risk for each 10 years you are alive), but is something to be aware of. 7. Hormone therapy: For high risk prostate cancers such as yours, I recommend a course of anti-testosterone therapy for at least 24 months (typically starting 2 months before radiation, contiuing for 2months during radiation and ongoing after radiation is completed). This is usually given as a shot that lasts for 3 months at a time and Dr Rojas actually already gave you a 6 month shot. The reason werecommend this is that the male hormone testosterone is used by prostate cancer as a fuel. By decreasing the body's production of testosterone, we can 'starve' the prostate cancer. The main side effects of hormone therapy include hot flashes, night sweats, weight gain, depressed mood, loss of sexual interest and impotence. There is also a very low risk of heart attack among men who have recently had a heart attack. These side effects usually reverse within 3-6 months of stopping the hormone therapy when testosterone recovers, although it can take up to a full year. During your radiation treatments we would also give you a pill to take once a day called Casodex (bicaluatamide) that blocks the effect of testosterone in the body. I will send this to your pharmacy today. After about 4-6 weeks, we should check your liver function to be sure that this medication is not harming your liver (which it jose f in about 1 out of 500 people). 8. Improving your urinary function before starting radiation: Based on the survey you completed for us, your urinary flow does not seem to be very good right now. Radiation can make this worse, to the point that you may need a catheter to urinate. There are a couple of things that might make it better before we start radiation. One option is to wait about 2-3 months after the start of your hormonal therapy to see if your urination improves. Another possibility is an outpatient surgery that Dr Rojas or one of the surgeons at [facility] can do. It is called a TURP (TransUrethral Resection of Prostate)to open up your urinary flow. This can either be done at the same time as hormonal treatments or after giving the hormonal treatment a try to see if they improve your urination enough. It is important to keep in mind that radiation would be delayed for at least 4 months (possibly up to 6 months) afterthe surgery to allow for enough healing so that we avoid radiation damage to your urinary tract after surgery. Please do not hesitate to call me at [phone] with any other questions or concerns you have. If I am not here, one of our radiation oncology nurses can assist you or help you get in touch with me. A Radiation Oncology doctor is also online retailer after our normal hours and on weekends for urgent questions or concerns related to radiation treatments that can not wait until normal business hours. To reach the on-call doctor after-hours, just call and have the scarf and anneal operator page the Radiation Oncologist online retailer. And, as always, if you experience any life-threatening emergencies which any include the following, you need to seek emergency care immediately by calling 911: 1. Sudden and unexpected breathing difficulty without any exertion 2. Sudden onset of chest pain 3. Sudden onset of severe pain or uncontrolled pain 4. Sudden onset of severe weakness and/or unable to walk 5. Sudden new onset of a seizure 6. Fall resulting in injury 7. Uncontrollable bleeding Jd Lee MD, MS Professional [employer] Fisherman of Radiation Oncology [facility] documented in this encounter Progress Notes Jd Quintero MD - 12/08/2020 10:00 AM EST Images from the original note were not included. Radiation Oncology Prostate Cancer Telephone Consult Note Jd Quintero MD, MS [facility] [phone] TELE-CONSULTATION DESCRIPTION Based on the recommendations from the [facility] in the setting of the COVID19 pandemic, we are working to minimize patient exposure in our medical center. All patients not requiring urgent procedures or physical examination are eligible for either a postponement in visit, or as medically indicated, visits may be offered by telemedicine (either video or phone consultation). This consultation has been reviewed by appropriate clinical staff and has been deemed appropriate for a TeleConsultation at this time. Type of Visit: Phone (i.e. audio only) [phone] Location of Patient: Home Additional members present for call: none (gayla Garza is at work) Location of Provider (myself): Office PATIENT IDENTIFICATION: PATIENT NAME: Benitez Fang DATE OF : 1945 REFERRING PROVIDER: Oscar Rojas MD [address] [place] [address] REASON FOR CONSULTATION : Cancer Staging Malignant neoplasm of prostate Staging form: Prostate, AJCC 8th Edition - Clinical: Stage IIIA (cT2, cN0, cM0, PSA: 115, Grade Group: 2) - Signed by Jd Quintero MD on12/06/2020 HISTORY OF PRESENT ILLNESS: Benitez Fang is a 75 y.o. 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 Presenting Symptoms / Duration: LUTS, ePSA Prior consultations / recommendations: Dr Rjoas - rec LT-ADT + XRT, 45mg Lupron given 10/31/20 PSA History: 2006 - ~9.0 (?) 09/07/20 - 115 Pathology Results / Location: TRUS bx 09/29/20 - Gl 3+4 x 7 bilat - Gl 3+3 x 5 bilat Pertinent Imaging Studies: TRUS: asymmetric, large prostate, 85cc (09/29/20) Bone scan, CT A/P: negative for metastatic disease (10/27/20) Prior to starting today's phone consultation, I informed Benitez that this does constitute a billable visit, and that [facility] would be submitting a claim to his insurer. He provided verbal consent to proceed with the consultation documented above. REVIEW OF SYSTEMS: REVIEW OF SYSTEMS 12/08/2020 Constitutional Fatigue, lack of energy Ear / nose / throat / mouth None of the above Eyes None of the above Respiratory None of the above Cardiovascular None of the above Gastrointestinal None of the above Skin, hair None of the above Musculoskeletal Joint pain Neurological None of the above Hematologic / Lymphatic None of the above Other Symptoms fatigue since receiving hormone shot ( 6 month dose) w/ Dr Rojas about a month ago He has never had a colonoscopy. A comprehensive 14 point review of systems was conducted with this patient and is otherwise negativeexcept as documented above. Urinary and erectile function as below. His LUTS have been much worse since biopsy, per below. He has better erectile function prior to Lupron. Baseline UMBERTO and IPSS are as below: Prostate Scores and Responses 12/08/2020 Confidence, level - past 6 months Very low Penetration - past 6 months No sexual activity Penetration, maintain - past 6 months Did not attempt intercourse Erection, maintain - past 6 months Did not attempt intercourse Sexual satisfaction - past 6 months Did not attempt intercourse Sexual Health in Men 1 (SEVERE ED) Incomplete emptying More than half the time Frequency About half the time Intermittency About half the time Urgency About half the time Weak Stream Almost always Straining Less than half the time Nocturia 1 time Quality of life Unhappy Total IPSS Score 21 (SEVERE LUTS) EPIC-PC Responses 12/08/2020 Urinary Incontinence Symptom Score 0 Urinary Irritation/Obstructive Symptom Score 10 Bowel Symptom Score 0 Vitality/Hormonal Symptom Score 2 Overall Prostate Cancer QOL Score 12 Urinary function problem Moderate problem Urinary control Total control # of pads used per day None Urinary dripping/leakage problem No problem Pain or burning with urination Moderate problem Weak urine stream/incomplete bladder emptying Big problem Need to urinate frequently Moderate problem Rectal pain or urgency of bowel movements No problem Increased frequency of your bowel movements No problem Overall problems with your bowel movements No problem Bloody stools No problem Ability to reach orgasm Very poor to none Quality of your erections None at all Hot flashes or breast tenderness/enlargement Very small problem Feeling depressed No problem Lack of energy Very small problem PAST MEDICAL HISTORY (per the medical record - not updated today) Past Medical History: Diagnosis Date ??? Arthritis hip pain ??? Prostate cancer Past Surgical History: Procedure Laterality Date ??? PROSTATE BIOPSY 09/29/2020 CONTRAINDICATIONS TO RADIATION THERAPY: None ?? Prior radiation therapy: No ?? Active Lupus: No ?? Systemic Scleroderma: No MEDICATIONS / ALLERGIES (per the medical record - not reviewed/updated with the patient): Medications 12/08/20 0904 Medication Sig Taking? tamsulosin (Flomax) 0.4 mg Capsule Take 0.8 mg by mouth every morning. Yes ibuprofen (Advil;Motrin) 200 mg Tablet Take 400 mg by mouth every 6 hours as needed for Pain. Yes celecoxib (CELEBREX) 200 mg capsule 200MG = 1 Capsule(s), PO, Once daily Yes tadalafiL (CIALIS) 5 mg Tablet Take 5 mg by mouth as needed. Allergies Allergen Reactions ??? Codeine Phosphate Head ache TODAY'S PERFORMANCE STATUS per today's conversation: KPS Score ECOG Grade Definition X 90-100 [...] selfcare; totally confined to bed or chair ASSESSMENT / PLAN: Benitez Fang is a 75 y.o. man diagnosed with high-risk prostate cancer (cT2, Gl 3+4, PSA 115). Staging mpMRI for MAKENZIE/SVI is still pending. ADT consisting of Lupron monotherapy was initiated about 1 month ago (45mg shot given 10/31/20). Today we reviewed the risks, benefits, rationale, implications and alternatives of the various management options. Fortunately he was well informed regarding these options, especially the surgical approach by Dr. Rojas, so we spent the remainder of the discussion focusing on radiation therapy. Briefly, though, we reviewed his three major options, which include radical prostatectomy, radiation therapy, and active surveillance with delayed curative intent. Active surveillance was not reviewed in detail, given the multiple cores involved and his very high PSA. With regard to his radiation options, we reviewed: Standard pelvic/prostate external beam RT Moderately hypofractionated pelvic/prostate external beam RT In the short term, I reviewed the common irritative bowel and bladder side effects associated with all forms of radiotherapy. Given his severe LUTS at present we discussed that he may require a catheter. Mitigation strategies were reviewed today - including ADT and/or TURP prior to starting RT. He hasalready started ADT so we will give that some time to reduce his prostate size. In the event that heexperiences severe worsening of his current LUTS, he understands that ISC or indwelling goode catheter may be required. I discussed a possible referral back to Dr. Rojas for TURP prior to starting RT. Finally I also discussed that I plan to discuss w Dr Rojas whether his biopsy could have exacerated urinary symptoms, but it does not sound like he has any other infectious symptoms. If he does receive a TURP, we would defer the start radiotherapy for at least 3 if not 6 months to allow for complete healing. In the remote computer terminal operator, I explained there is an approximately 2% chance of serious bladder or rectaltoxicity as well as a very low risk of inducing a secondary malignancy. I also reviewed that with radiation there are few reliable salvage curative options. Logistics of external beam treatment were also reviewed, including the role of fiducial marker placement with or without spaceOAR hydrogel placement, simulation, and treatment. We reviewed that findings of MAKENZIE on mpMRI would preclude safe placement of the hydrogel. Logistics of brachytherapy were also reviewed, however given his LUTS at baseline, very high PSA and large gland he would be a suboptimalcandidate for this approach. I discussed this option and the fact that if he was still interested I refer him to my collegue, Dr Rai at [facility] who routinely performs these implants. I also reviewed the role of long-term ADT and side effects associated with this treatment. He understands there is a survival benefit when ADT is added to radiotherapy, and that side effects can include diminished libido, hot flashes, weight gain, mood swings, depression and/or osteoporosis. A depot Lupron injection has already been administered by Dr. Rojas. He is next due in March 2021. I have also recommended that he begin taking casodex daily and have sent a prescription to his pharmacy. I discussed the need to monitor LFTs which we will do twice, in 4-6 week interval after he begins the medication. Clinical trials were also reviewed briefly. He is not a candidate for any currently open trials at [facility]. On balance, Benitez wishes to proceed with mpMRI and continue monitoring of LUTS while on ADT. He isalso willing to start casodex in attempts at combined androgen blockage. Informed consent for fiducial marker placement, spaceOAR hydrogel insertion, and radiotherapy will obtained when the patient is next seen in clinic. All of his questions were answered to his satisfaction, and we have provided him with our contact information should any further questions or concerns arise. SUMMARY OF PLAN / RECOMMENDATION: 1. Intent of therapy: Curative 2. Clinical Trial Availability: No 3. mpMRI --> RV to review results and obtain informed consent for EBRT/fiducials/spaceOAR TIME ATTESTATION: I certify spending at least 60 minutes in providing care to this patient today, 12/08/20 as reflected by the following activities: - review of his medical record in the chart, including interpretation of imaging, laboratory and pathologic studies referenced above - discussion of the above with the patient as part of shared medical decision making - documenting the outcome of today's visit as above JD QUINTERO MD, MS Brittney Da Silva RN - 12/08/2020 10:00 AM EST RADIATION ONCOLOGY NURSING INITIAL NURSING ASSESSMENT Radiation Oncology Nurse Telephone Note [place], [place] IDENTIFICATION: Benitez Fang is a 75 y.o. year-old male with prostate ca PRESENTING SYMPTOMS/CHIEF COMPLAINT: REVIEW OF SYSTEMS: Review of Systems - Oncology REVIEW OF SYSTEMS 12/08/2020 Constitutional Fatigue, lack of energy Ear / nose / throat / mouth None of the above Eyes None of the above Respiratory None of the above Cardiovascular None of the above Gastrointestinal None of the above Skin, hair None of the above Musculoskeletal Joint pain Neurological None of the above Hematologic / Lymphatic None of the above Other Symptoms fatigue since receiving hormone shot ( 6 month dose) w/ Dr Rojas about a month ago IN THE PAST 12 MONTHS HAVE YOU: Fallen more than one time? No Injured yourself as result of the fall? No Experienced difficulty with walking/problems with balance? No Do you use any assistive devices? No Any history of collagen vascular diseases:No Any Implanted Devices/Hardware: No If yes please put alert in ARIA patient summary Prior Radiotherapy: No Prior Chemotherapy: No Prior Hormone Therapy: Yes ADT w/ Rojas started last month Other: Patient denies history of sclera derma and Lupus LEARNING ASSESSMENT REVIEWED: Yes ADVANCED DIRECTIVE: Not discussed today. PAIN ASSESSMENT: [0] out of 10 *eD-H Adult PCS Flow Sheet if 4 or above SOCIAL ASSESSMENT: See ED social assessment information entered. Support Systems: lives with Kayla george Barriers to treatment: none Referrals/Interventions: fruit harvest worker visit on day per routine. RADIATION SPECIFIC TEACHING:Will provide the following information on day [facility] and You Site specific teaching :pelvis PLAN: Per Dr Quintero documented in this encounter Plan of Treatment Not on filedocumented as of this encounter Results MRI Pelvis wwo (Prostate) (12/28/2020 1:36 PM EST) Anatomical Region Laterality Modality Pelvis Magnetic Resonance Specimen (Source) Anatomical Location Collection Method / Collectio n Time Received Time / Laterality Volume Impressions 12/28/2020 2:05 PM EST Lesion 1 TZ: PI-RADS 5. Clinically signi ficant cancer is highly likely to be present. T2 location: axial series 10, i mage 22; sagittal ??series 9, image 13. PI-RADS v2.1 Assessment Categories PI-RADS 1 -- Very low (clinically signif icant cancer is highly unlikely to be present) PI-RADS 2 -- Low (clinically significant cancer is unlikely to be present) PI-RADS 3 -- Intermediate (the presence of clinically significant cancer is equivocal) PI-RADS 4 -- High (clinically significan t cancer is likely to be present) PI-RADS 5 -- Very high (clinically signi ficant cancer is highly likely to be present) References: Rolando S1, Lisbet JH1, Walker S1, Smi th C1, Tay J1, Enriqueta M1, Gold S1, Bernard G1, Rayn K1, Limon MJ1, Waqas BJ1, Sahra PA1, Bahman PL1, Ishmael B1. ??A Grading System for the Assessment of Ris k of Extraprostatic Extension of Prostate Cancer at Multiparametric MRI. Radiology. 2019 Mar;290(3):709-719. doi: 10.1148/radiol.7006562230. Epub 2018Dec 01. Thank you for letting us participate in the care of this patient. For questions regarding this report, please contact e number below. ? Electronically signed by: Grant sosa MD, [facility] ([phone]), at 12/28/2020 2:05 PM Narrative 12/28/2020 2:05 PM EST EXAMINATION: MRI PELVIS WWO (PROSTATE) CLINICAL HISTORY: local staging prostate cancer, assess for MAKENZIE/SVI/LAD. REASON FOR PROSTATE EXAM: HAS PATIENT HAD PREVIOUS BIOPSY?:Yes,2019 MOST RECENT PSA LEVEL:115 JC SCORE:3+4 TECHNIQUE: Multiparametric MRI of the pr ostate prior to and following IV administration of 16 cc of Dotarem contr ast. ?? QUALITY: Meets PI-RADS technical criteri a. COMPARISON: None FINDINGS: Prostate dimensions: 5.2 x 4.3 x 5.8cm. Estimated prostate volume: 67.4cc (X x Y x Z x 0.52) PSA density: 1.71 (PSA/prostate volume > 0.15 susp, 0.25 highly susp) Peripheral zone: T2: Attenuated by an en larged transition zone. Diffuse mild hypointensity with indistinct margin.. No focal lesions. Combined PI-RADs: 2. Transition zone: Lesion 1 left mid gland and apex T2: non-circumscribed, homogeneous, mode rately hypointense lesion, 3.3 x 2.5 cm axially, 2.6 cm craniocaudally. PI-RADs: 5. DWI: ??No abnormality on ADC and high b- value DWI. PI-RADs: 1. DCE-MRI: ??(-) diffuse enhancement not c orresponding to a focal finding on T2 and/or DWI. ?? Combined PI-RADs: 5. Extraprostatic disease: Seminal vesicle involvement:No Lymphadenopathy:No Sphincter involvement:No Bladder involvement:No Osseous metastases: No . MRI-derived Extraprostatic extension ris k: None Other findings: None. Procedure Note Grant Malave MD - 12/28/2020For matting of this note might be different from the original. EXAMINATION: MRI PELVIS WWO (PROSTATE) CLINICAL HISTORY: local staging prostate cancer, assess for MAKENZIE/SVI/LAD. REASON FOR PROSTATE EXAM: HAS PATIENT HAD PREVIOUS BIOPSY?:Yes,2019 MOST RECENT PSA LEVEL:115 JC SCORE:3+4 TECHNIQUE: Multiparametric MRI of the pr ostate prior to and following IV administration of 16 cc of Dotarem contr ast. QUALITY: Meets PI-RADS technical criteri a. COMPARISON: None FINDINGS: Prostate dimensions: 5.2 x 4.3 x 5.8cm. Estimated prostate volume: 67.4cc (X x Y x Z x 0.52) PSA density: 1.71 (PSA/prostate volume > 0.15 susp, 0.25 highly susp) Peripheral zone: T2: Attenuated by an en larged transition zone. Diffuse mild hypointensity with indistinct margin.. No focal lesions. Combined PI-RADs: 2. Transition zone: Lesion 1 left mid gland and apex T2: non-circumscribed, homogeneous, mode rately hypointense lesion, 3.3 x 2.5 cm axially, 2.6 cm craniocaudally. PI-RADs: 5. DWI: No abnormality on ADC and high b-va lue DWI. PI-RADs: 1. DCE-MRI: (-) diffuse enhancement not cor responding to a focal finding on T2 and/or DWI. Combined PI-RADs: 5. Extraprostatic disease: Seminal vesicle involvement:No Lymphadenopathy:No Sphincter involvement:No Bladder involvement:No Osseous metastases: No . MRI-derived Extraprostatic extension ris k: None Other findings: None. IMPRESSION Lesion 1 TZ: PI-RADS 5. Clinically signi ficant cancer is highly likely to be present. T2 location: axial series 10, i mage 22; sagittal series 9, image 13. PI-RADS v2.1 Assessment Categories PI-RADS 1 -- Very low (clinically signif icant cancer is highly unlikely to be present) PI-RADS 2 -- Low (clinically significant cancer is unlikely to be present) PI-RADS 3 -- Intermediate (the presence of clinically significant cancer is equivocal) PI-RADS 4 -- High (clinically significan t cancer is likely to be present) PI-RADS 5 -- Very high (clinically signi ficant cancer is highly likely to be present) References: Mehraliesteban S1, Lisbet JH1, Walker S1, Smi th C1, Tay J1, Czarniecki M1, Gold S1, Bernard G1, Rayn K1, Limon MJ1, Wood BJ1, Bocanegra PA1, Chocolemane PL1, Turkmary jane B1. A Grading System for the Assessment of Ris k of Extraprostatic Extension of Prostate Cancer at Multiparametric MRI. Radiology. 2019 Jan;290(3):709-719. doi: 10.1148/radiol.6352549136. Epub 2018Dec 01. Thank you for letting us participate in the care of this patient. For questions regarding this report, please contact e number below. Electronically signed by: Grant sosa MD, [facility] ([phone]), at 12/28/2020 2:05 PM Jd Quintero MD IMG MRI ORDERABLES documented in this encounter Visit Diagnoses Diagnosis Malignant neoplasm of prostate Malignant neoplasm of prostate documented in this encounter Care Teams Interlacer Relationship Specialty Start Date End Date Aletha Newell APRN PCP - General Urology 12/06/20 12/26/20 [address] [place] [address] documented as of this encounter
--- OUTSIDE RECORDS SUMMARY | 2022-10-04 00:47 | XMS_ITS | Encounter Summary ---
:1945 Author Organization [facility] [place] [address] Care Team Providers Name Role Phone Aletha Newell APRN Primary Care Provider Encounter Details Date Type Department Care Team Description 02/15/2021 Office Visit Radiation Oncology at Fran Espinosa M alignant neoplasm of [facility] prostate [address] [place], [place] RADIATION ONCOL OGY [address] [place], [place] [phone] (Wo rk) Social History Tobacco Use Types [...] Sign Reading Time Taken Comments Blood Pressure 177/73 02/15/2021 8:00 AM EDT Pulse 77 02/15/2021 8:00 AM EDT Temperature 36.4 ??C (97.5 ??F) 02/15/2021 8:00 AM EDT Respiratory Rate 20 02/15/2021 8:00 AM EDT Oxygen Saturation 97% 02/15/2021 8:00 AM EDT Inhaled Oxygen Concentration - - Weight 80.1 kg (176 lb 9.6 oz) 02/15/2021 8:00 AM EDT Height - - Body Mass Index - - documented in this encounter Progress Notes Fran Espinosa MD - 02/15/2021 8:15 AM EDT Images from the original note were not included. RADIATION ONCOLOGY - Weekly On Treatment Visit Note 02/15/21 Fran Espinosa MD, MS Radiation Oncology [facility] [phone] (paging brim pouncer machine operator) Pager #[phone] PATIENT IDENTIFICATION Name Benitez Fang Date of [...] 79.2 Gy in 44 fractions Current Dose: 10.8 Gy in 6 fractions INTERVAL HISTORY General No changes since last seen. GI No diarrhea. Nocturia 1 x/nt at baseline. Stream might be weaker but he restarted taking Cialis and noted an improvement. Still taking flomax 0.8mg qAM. No dysuria. Baseline IPSS history is listed below. Pain: Pain score today is 0/10. Prostate Today's Scores 12/08/2020 01/04/2021 Sexual Health Inventory for Men 1 (Severe ED) - International Prostate Symptom Score 21 (Severe LUTS) 4 ( Mild LUTS) MEDICATIONS Medications 02/15/21 0825 Medication Sig Taking? DM/p-ephed/acetaminoph/doxylam (NYQUIL ORAL) Take by mouth nightly as needed. Yes tamsulosin (Flomax) 0.4 mg Capsule Take 0.8 mg by mouth every morning. Yes ibuprofen (Advil;Motrin) 200 mg Tablet Take 400 mg by mouth every 6 hours as needed for Pain. Yes tadalafiL (CIALIS) 5 mg Tablet Take 5 mg by mouth as needed. Yes bicalutamide (Casodex) 50 mg Tablet Start [...] 0 - 55 unit/L 17 EXAM: BP 177/73 Pulse 77 Temp 36.4 ??C (97.5 ??F) Resp 20 Wt 80.1 kg (176 lb 9.6 oz) SpO2 97% Constitutional: he appears well-developed and well-nourished. No [...] radiotherapy/ADT: Tolerating as anticipated. Continue as planned. Next Lupron due April. Next LFTs due week of 03/05. Followup: Return to clinic next week for on treatment check. documented in this encounter Plan of Treatment Not on filedocumented as of this encounter Visit Diagnoses Diagnosis Malignant neoplasm of prostate documented in this encounter Care Teams Vamp Stitcher Relationship Specialty Start Date End Date Aletha Newell APRN PCP - General Urology 12/27/20 [address] [place] [address] documented as of this encounter
--- OUTSIDE RECORDS SUMMARY | 2022-10-04 00:47 | XMS_ITS | Encounter Summary ---
:1945 Author Organization [facility] [place] [address] Care Team Providers Name Role Phone Aletha Newell APRN Primary Care Provider Encounter Details Date Type Department Care Team Description 03/22/2021 Office Visit Radiation Oncology at Fran Espinosa M alignant neoplasm of [facility] prostate [address] [place], [place] RADIATION ONCOL OGY [address] [place], [place] [phone] (Wo rk) Social History Tobacco Use Types [...] Sign Reading Time Taken Comments Blood Pressure 145/75 03/22/2021 8:19 AM EDT Pulse 78 03/22/2021 8:19 AM EDT Temperature 35.8 ??C (96.4 ??F) 03/22/2021 8:19 AM EDT Respiratory Rate 18 03/22/2021 8:19 AM EDT Oxygen Saturation 96% 03/22/2021 8:19 AM EDT Inhaled Oxygen Concentration - - Weight 80.3 kg (177 lb) 03/22/2021 8:19 AM EDT Height 172.7 cm (5' 8) 03/22/2021 8:19 AM EDT Body Mass Index 26.91 03/22/2021 8:19 AM EDT documented in this encounter Progress Notes Fran Espinosa MD - 03/22/2021 8:15 AM EDT Images from the original note were not included. RADIATION ONCOLOGY - Weekly On Treatment Visit Note 03/22/21 FRAN ESPINOSA MD Radiation Oncology [facility] [phone] (paging grinder operator tool) Pager #[phone] PATIENT IDENTIFICATION Name Benitez Fang Date of [...] 79.2 Gy in 44 fractions Current Dose: 55.8 Gy in 31 fractions INTERVAL HISTORY General Overall feels well. GI Loose / watery stool this AM. Not following LRD. Nocturia 1 x/nt at baseline, sometimes up to 3x/night. Taking Cialis occasionally, flomax 0.8mg qAM, Ibuprofen 400mg qhs. (He tried flomax BID but daytime symptoms worsened.) Baseline IPSS history is listed below. Pain: Pain score today is 0/10. Prostate Today's Scores 12/08/2020 01/04/2021 Sexual Health Inventory for Men 1 (Severe ED) - International Prostate Symptom Score 21 (Severe LUTS) 4 ( Mild LUTS) MEDICATIONS Medications 03/22/21 5615 Medication Sig Taking? tamsulosin (Flomax) 0.4 mg Capsule Take 0.8 mg by mouth every morning. Yes ibuprofen (Advil;Motrin) 200 mg Tablet Take 400 mg by mouth every 6 hours as needed for Pain. Yes tadalafiL (CIALIS) 5 mg Tablet Take 5 mg by mouth daily as needed. Yes bicalutamide (Casodex) 50 mg Tablet Start taking 1 pill daily today. You can stop when radiation is complete. Yes celecoxib (CELEBREX) 200 mg capsule 200MG = 1 Capsule(s), PO, Once daily Yes IMAGING / LABS I have personally reviewed this patient's interval portal imaging to confirm accurate positioning and alignment which matches the patient's original approved treatment planning images. LFTs 01/30/21 - WNL LFTs 03/08/21 - WNL EXAM: BP 145/75 (Patient Position: Sitting) Pulse 78 Temp 35.8 ??C (96.4 ??F) (Temporal) Resp 18 Ht 172.7 cm (5' 8) Wt 80.3 kg (177 lb) SpO2 96% BMI 26.91 kg/m?? Constitutional: he appears well-developed and well-nourished. [...] Continue as planned. Next Lupron due April. Diarrhea: Rec LRD. Imodium prn. LUTS: Cont Flomax 0.8mg qAM, ibuprofen 400mg qhs. Cialis prn. Followup: Return to clinic next week for on treatment check. documented in this encounter Plan of Treatment Not on filedocumented as of this encounter Visit Diagnoses Diagnosis Malignant neoplasm of prostate documented in this encounter Care Teams Model And Dye Person Relationship Specialty Start Date End Date Aletha Newell APRN PCP - General Urology 12/27/20 [address] [place] [address] documented as of this encounter
--- OUTSIDE RECORDS SUMMARY | 2022-10-04 00:47 | XMS_ITS | Encounter Summary ---
:1945 Author Organization [facility] [place] [address] Care Team Providers Name Role Phone Teo Cody MD, Silviano Primary Care Provider Encounter Details Date Type Department Care Team Description 10/31/2020 Ancillary Procedure Radiology Library at Fran Espinosa MD [address] [facility] [place] [phone] (Wo rk) Social History Tobacco Use Types Packs/Day Years Used Date Smoking Tobacco: Never Assessed Alcohol Habits Answer Date Recorded How often [...] on file documented as of this encounter Plan of Treatment Not on filedocumented as of this encounter Procedures Procedure Name Priority Date/Time Associated Diagnosis Comme nts FILM LIBRARY Routine 10/31/2020 12:00 AM Results for this STORAGE ONLY DX EST procedure ar e in CHEST the results section. documented in this encounter Results Film Library- Storage Only DX Chest (10/31/2020 12:00 AM EST) Specimen (Source) Anatomical Location Collection Method / Collectio n Time Received Time / Laterality Volume Narrative RAD - 11/01/2020 10:03 AM EST This exam is auto-finalizing. It's purpo se is for storage only. Fran Espinosa MD IMG FILM LIBRARY ORDERABLES Performing Organization Address City/State/ZIP Code Phon e Number RAD [place], [place] documented in this encounter Visit Diagnoses Not on filedocumented in this encounter Care Teams Wine Specialist Relationship Specialty Start Date End Date Silviano Bruce MD PCP - General 10/02/10 12/05/20 [address] [place] [address] documented as of this encounter
--- OUTSIDE RECORDS SUMMARY | 2022-10-04 00:47 | XMS_ITS | Encounter Summary ---
:1945 Author Organization [facility] [place] [address] Care Team Providers Name Role Phone Teo Cody MD, Silviano Primary Care Provider Encounter Details Date Type Department Care Team Description 11/06/2020 External Results Medical Records Provider, [place] [address] Social History Tobacco Use Types Packs/Day Years [...] Name Priority Date/Time Associated Diagnosis Comme nts SURGICAL PATHOLOGY Routine 11/06/2020 Results f or this SCAN procedure are i n the results section . documented in this encounter Results Scan Doc: Surgical Pathology (11/06/2020) Narrative This result has an attachment that is no t available. Historical Provider MEDIA MGR SCAN EXT ORDR/RSLT documented in this encounter Visit Diagnoses Not on filedocumented in this encounter Care Teams Site Interpreter Relationship Specialty Start Date End Date Silviano Bruce MD PCP - General 10/02/10 12/05/20 [address] [place] [address] (work) documented as of this encounter
--- OUTSIDE RECORDS SUMMARY | 2022-10-04 00:47 | XMS_ITS | Encounter Summary ---
:1945 Author Organization [facility] [place] [address] Care Team Providers Name Role Phone Teo Cody MD, Silviano Primary Care Provider Encounter Details Date Type Department Care Team Description 10/27/2020 Ancillary Procedure Radiology Library at Fran Espinosa MD [address] [facility] [place] [phone] (Wo rk) Social History Tobacco Use Types [...] Associated Diagnosis Comme nts FILM LIBRARY Routine 10/27/2020 12:05 AM Results for this STORAGE ONLY EST procedure are i n NUCLEAR MEDICINE the results section. documented in this encounter Results Film Library- Storage Only nuclear medicine (10/27/2020 12:05 AM EST) Specimen (Source) Anatomical Location Collection Method / Collectio n Time Received Time / Laterality Volume Narrative [facility] - 11/01/2020 10:05 AM EST This exam is auto-finalizing. It's purpo se is for storage only. Fran Espinosa MD IMG FILM LIBRARY ORDERABLES Performing Organization Address City/State/ZIP Code Phon e Number RAD [place], [place] documented in this encounter Visit Diagnoses Not on filedocumented in this encounter Care Teams Environmental Health Manager Relationship Specialty Start Date End Date Silviano Bruce MD PCP - General 10/02/10 12/05/20 [address] [place] [address] documented as of this encounter
--- OUTSIDE RECORDS SUMMARY | 2022-10-04 00:47 | XMS_ITS | Encounter Summary ---
:1945 Author Organization [facility] [place] [address] Care Team Providers Name Role Phone Aletha Newell APRN Primary Care Provider Reason for Visit Reason Comments Injections Lupron High Dollar Medication (Routine) - Closed Specialty Diagnoses / Procedures Referred By Contact Refer red To Contact Hematology and Oncology Diagnoses Malignant neoplasm of prostate Fran Olmedo MD [facility] Hem Onc Infusion Procedures TC LEUPROLIDE ACETATE 7.5MG, FOR DEPOST SUSPENSION (LUPRON DEPOT) LEUPROLIDE ACETATE (LUPRON DEPOT) [address] [place] [address] [place] [id number] Referral ID Status Reason Start Date Expiration Date Visits Requ ested Visits Authorized [id number] Closed 04/11/2021 04/11/2022 99 99 Encounter Details Date Type Department Care Team Description 04/26/2021 Infusion Hematology Oncology at [facility] lignant neoplasm of [facility] prostate [address] [place] [phone] Social History Tobacco Use Types [...] documented as of this encounter Progress Notes Isabella Almonte RN - 04/26/2021 2:00 PM EDT Infusion Note Diagnosis:Prostate Cancer Treatment: Lupron Injection Lupron 45mg injected in left buttocks Patient instructed on side effects of Lupron. Patient states understanding of teaching, Patient aware to call clinic with any [...] Dose Rate Site leuprolide (6 month) Given 04/26/2021 2:09 PM EDT 45 mg Left Gluteal (LUPRON DEPOT) injection 45 mg 45 mg, Intramuscular, ONCE, 1 dose, On Jodie 04/26/21 at 1415, Routine, This agent is restricted to outpatient use. Is this drug being given as an outpatient? Yes documented in this encounter Care Teams Alberene Stone Setter Relationship Specialty Start Date End Date Aletha Newell APRN PCP - General Urology 12/27/20 [address] [place] [address] documented as of this encounter
--- OUTSIDE RECORDS SUMMARY | 2022-10-04 00:47 | XMS_ITS | Encounter Summary ---
:1945 Author Organization [facility] [place] [address] Care Team Providers Name Role Phone Aletha Newell APRN Primary Care Provider Reason for Visit Reason Comments Medication Refill Encounter Details Date Type Department Care Team Description 03/29/2021 Refill Radiation Oncology at [facility] Fran MD [address] RADIATION ONCOLOGY [place], [place] [address] [place], [place] [phone] (Wo rk) Social History Tobacco Use Types [...] on filedocumented in this encounter Care Teams Sales Executive Relationship Specialty Start Date End Date Aletha Newell APRN PCP - General Urology 12/27/20 [address] [place] [address] documented as of this encounter
--- OUTSIDE RECORDS SUMMARY | 2022-10-04 00:47 | XMS_ITS | Encounter Summary ---
:1945 Author Organization [facility] [place] [address] Care Team Providers Name Role Phone Aletha Newell APRN Primary Care Provider Encounter Details Date Type Department Care Team Description 01/17/2021 Telephone Radiation Oncology a t [facility] Rad Nurse, [address] [phone] Social History Tobacco Use [...] on filedocumented in this encounter Care Teams Mini Lab Operator Relationship Specialty Start Date End Date Aletha Newell APRN PCP - General Urology 12/27/20 [address] [place] [address] documented as of this encounter
--- OUTSIDE RECORDS SUMMARY | 2022-10-04 00:47 | XMS_ITS | Encounter Summary ---
:1945 Author Organization [facility] [place] [address] Care Team Providers Name Role Phone Aletha Newell APRN Primary Care Provider Reason for Visit Consultation (Routine) - Specialty Diagnoses / Procedures Referred By Contact Refer red To Contact Radiation Oncology Diagnoses Malignant neoplasm of prostate Fran Espinosa MD [facility] Rad Onc Office Procedures Simulation for Radiation Therapy Planning [address] [place] [address] [place] [phone] Referral ID Status Reason Start Date Expiration Date Visits V isits Requested Authorized [id number] Consult, 01/30/2021 04/30/2021 99 99 Test & Treat Encounter Details Date Type Department Care Team Description 01/30/2021 Ancillary Appointment Radiation Oncology at Ivy Espinosa [facility] [address] [place] [phone] (Wo rk) Social History Tobacco Use Types [...] documented as of this encounter Progress Notes Fran Espinosa MD - 01/30/2021 1:00 PM EDT Simulation Note for External Beam Radiation Treatment Planning [facility] Benitez Fang is a 75 y.o. year old male with high risk prostate cancer who was simulated for definitive radiotherapy to the pelvis and prostate today. No changes were made from the plan as documented in the original simulation order and instructions. After confirming informed consent, a retrograde urethrogram was performed using a small amount of contrast dye, and then a 2.5mm slice thickness CT scan of the patient's pelvis was obtained. This scan was performed to delineate both target volumes and organs/structures at risk. These images will be used to create a customized treatment plan employing multileaf collimators and beams-eye view to treat the target to prescription dose while maximally sparing organs at risk, with the overall goal of maximizing the likelihood of a favorable disease response while minimizing the likelihood of any short term side effects or prison complications of therapy. I anticipate his prescription dose will be 79.2 Gy to the prostate, delivered in daily 1.8 Gy fractions over the course of 9.5 weeks. Anticipate therapy to begin within the next 10 days. Furthermore, Ianticipate this patient will require IMRT or VMAT treatment planning and delivery as the critical treatment volume of interest (in this case, pelvic lymphatics, seminal vesicles, and prostate) is/are irregular and in close proximity to sensitive structures which must be protected (including his femurs, bladder, rectum, small bowel, and penile bulb). The patient tolerated this procedure well, and was provided instructions with regard to upcoming appointments. documented in this encounter Plan of Treatment Scheduled Orders Name Type Priority Associated Diagnoses Order S chedule Simulation for Procedures Routine Malignant neoplasm of [place] red: 01/04/2021 Radiation Therapy prostate Planning documented as of this encounter Visit Diagnoses Not on filedocumented in this encounter Care Teams Rotary Helper Relationship Specialty Start Date End Date Aletha eNwell, SHANIQUE PCP - General Urology 12/27/20 [address] [place] [address] documented as of this encounter
--- OUTSIDE RECORDS SUMMARY | 2022-10-04 00:47 | XMS_ITS | Encounter Summary ---
:1945 Author Organization [facility] [place] [address] Care Team Providers Name Role Phone Aletha Newell APRN Primary Care Provider Encounter Details Date Type Department Care Team Description 03/01/2021 Office Visit Radiation Oncology at Fran Espinosa M alignant neoplasm of [facility] prostate [address] [place], [place] RADIATION ONCOL OGY [address] [place], [place] [phone] (Wo rk) Social History Tobacco Use Types [...] Sign Reading Time Taken Comments Blood Pressure 157/82 03/01/2021 8:00 AM EDT Pulse 76 03/01/2021 8:00 AM EDT Temperature 36.7 ??C (98 ??F) 03/01/2021 8:00 AM EDT Respiratory Rate 20 03/01/2021 8:00 AM EDT Oxygen Saturation 96% 03/01/2021 8:00 AM EDT Inhaled Oxygen Concentration - - Weight 81.1 kg (178 lb 12.8 oz) 03/01/2021 8:00 AM EDT Height - - Body Mass Index - - documented in this encounter Progress Notes Fran Espinosa MD - 03/01/2021 8:15 AM EDT Images from the original note were not included. RADIATION ONCOLOGY - Weekly On Treatment Visit Note 03/01/21 FRAN ESPINOSA MD Radiation Oncology [facility] [phone] (paging oil lease operator) Pager #[phone] PATIENT IDENTIFICATION Name Benitez Fang Date of [...] 79.2 Gy in 44 fractions Current Dose: 28.8 Gy in 16 fractions INTERVAL HISTORY General Overall feels well. No changes since last seen. GI No diarrhea. Nocturia 1 x/nt at baseline. Taking Cialis qd, flomax 0.8mg qAM, Ibuprofen 400mg qhs with improvement in overnight LUTS. No dysuria. Baseline IPSS history is listed below. Pain: Pain score today is 0/10. Has neck pain related to the head-cup used for his treatment setup; taking ibuprofen daily. Prostate Today's Scores 12/08/2020 01/04/2021 Sexual Health Inventory for Men 1 (Severe ED) - International Prostate Symptom Score 21 (Severe LUTS) 4 ( Mild LUTS) MEDICATIONS Medications 03/01/21 8325 Medication Sig Taking? DM/p-ephed/acetaminoph/doxylam (NYQUIL ORAL) Take [...] 0 - 55 unit/L 17 EXAM: BP 157/82 Pulse 76 Temp 36.7 ??C (98 ??F) Resp 20 Wt 81.1 kg (178 lb 12.8 oz) SpO2 96% Constitutional: he appears well-developed and well-nourished. No [...] Continue as planned. Next Lupron due April. LFTs due next week. Followup: Return to clinic next week for on treatment check. documented in this encounter Plan of Treatment Not on filedocumented as of this encounter Visit Diagnoses Diagnosis Malignant neoplasm of prostate documented in this encounter Care Teams Bank Accountant Relationship Specialty Start Date End Date Aletha Newell APRN PCP - General Urology 12/27/20 [address] [place] [address] documented as of this encounter
--- OUTSIDE RECORDS SUMMARY | 2022-10-04 00:47 | XMS_ITS | Encounter Summary ---
:1945 Author Organization [place] [address] Care Team Providers Name Role Phone Aletha Newell APRN Primary Care Provider Encounter Details Date Type Department Care Team Description 01/30/2021 Hospital Encounter Hematology [place] [address] Social History Tobacco Use Types Packs/Day [...] on file documented as of this encounter Medications at Time of Discharge Medication Sig Dispensed Refills Start Date End Date tamsulosin (Flomax) 0.4 Take 0.8 mg by mouth 0 mg Capsule every morning. ibuprofen (Advil;Motrin) Take 400 mg by mouth 0 200 mg Tablet every 6 hours as needed for Pain. tadalafiL (CIALIS) 5 mg Take 5 mg by mouth 0 Tablet daily as needed. celecoxib (CELEBREX) 200 200MG = 1 0 08/11/2006 mg capsule Capsule(s), PO, Once daily levoFLOXacin (LEVAQUIN) Take 1 hour prior to 1 tablet 0 02/08/2021 500 mg TabletIndications: procedure Malignant neoplasm of prostate dexamethasone (DECADRON) Take 1 tablet by 9 tablet 0 01/2402/08/2021 2 mg TabletIndications: mouth See Admin Malignant neoplasm of Instructions. 1 tab prostate twice a day for 3 days, then 1 tab daily for 3 days. Start the day OF the procedure. DM/p-ephed/acetaminoph/do Take by mouth 0 03/08/2021 xylam (NYQUIL ORAL) nightly as needed. bicalutamide (Casodex) 50 Start taking 1 pill 30 tablet 3 0 12/08/2020 03/29/2021 mg Tablet daily today. You can stop when radiation is complete. documented as of this encounter Plan of Treatment Not on filedocumented as of this encounter Visit Diagnoses Not on filedocumented in this encounter Care Teams Vegetable Loader Relationship Specialty Start Date End Date Aletha Newell APRN PCP - General Urology 12/27/20 [address] [place] [address] documented as of this encounter
--- OUTSIDE RECORDS SUMMARY | 2022-10-04 00:47 | XMS_ITS | Encounter Summary ---
:1945 Author Organization [facility] [place] [address] Care Team Providers Name Role Phone Aletha Newell APRN Primary Care Provider Reason for Referral Diagnostic Test (Routine) - Closed Specialty Diagnoses / Procedures Referred By Contact Refer red To Contact Radiology Diagnoses Malignant neoplasm of prostate Fran Espinosa MD [facility] Rad Mri Procedures MRI Pelvis wo (Prostate) [address] [place] [address] [place] [address] [place] [phone] Referral ID Status Reason Start Date Expiration Date Visits V isits Requested Authorized [id number] Closed Specialty 01/04/2021 07/04/2022 1 1 Service Requested Reason for Visit Diagnostic Test (Routine) - Closed Specialty Diagnoses / Procedures Referred By Contact Refer red To Contact Radiology Diagnoses Malignant neoplasm of prostate Fran Espinosa MD [facility] Rad Mri Procedures MRI Pelvis wo (Prostate) [address] [place] [address] [place] [address] [place] [phone] Referral ID Status Reason Start Date Expiration Date Visits V isits Requested Authorized [id number] Closed Specialty 01/04/2021 07/04/2022 1 1 Service Requested Encounter Details Date Type Department Care Team Description 01/30/2021 Hospital Encounter MRI at [facility] Fran Espinosa, Malignant neoplasm [facility] Center of prostate [address] [place], [place] RADIATION [address] ONCOLOGY [phone] [place] [address] Social History Tobacco Use Types Packs/Day Years [...] Name Priority Date/Time Associated Diagnosis Comme nts MRI PELVIS WO Routine 01/30/2021 10:15 AM Malignant neoplasm R esults for this (PROSTATE) EDT of prostate procedure are i n the results section. documented in this encounter Results MRI Pelvis wo (Prostate) (01/30/2021 10:15 AM EDT) Anatomical Region Laterality Modality Pelvis Magnetic Resonance Specimen (Source) Anatomical Location Collection Method / Collectio n Time Received Time / Laterality Volume Impressions 01/30/2021 3:19 PM EDT MRI for radiation planning, as above. I have personally reviewed the image(s) and the resident's interpretation and agree with the findings, Grant fierro MD at 01/30/2021 3:19 PM Thank you for letting us participate in the care of this patient. For questions regarding this report, please contact e number below. ? Narrative 01/30/2021 3:19 PM EDT EXAMINATION: MRI PELVIS WO (PROSTATE) CLINICAL HISTORY: prostate cancer s/p fi ducial marker and hydrogel placement. MRI for radiation planning, please use v olumetric study sequence if possible (e.g. BLACKBURN or the like) TECHNIQUE: MRI of the prostate without contrast. COMPARISON: Prostate MRI dated 12/28/2020 FINDINGS: The prostate gland measures 5.2 x 3.9 x 5.7 cm for calculated volume of 60 cc. Interval placement of fiducial markers i n the prostate, and SpaceOAR gel between the rectum and the prostate gland. No pe lvic lymphadenopathy or osseous metastases detected. Procedure Note Grant Malave MD - 01/30/2021For matting of this note might be different from the original. EXAMINATION: MRI PELVIS WO (PROSTATE) CLINICAL HISTORY: prostate cancer s/p fi ducial marker and hydrogel placement. MRI for radiation planning, please use v olumetric study sequence if possible (e.g. BLACKBURN or the like) TECHNIQUE: MRI of the prostate without contrast. COMPARISON: Prostate MRI dated 12/28/2020 FINDINGS: The prostate gland measures 5.2 x 3.9 x 5.7 cm for calculated volume of 60 cc. Interval placement of fiducial markers i n the prostate, and SpaceOAR gel between the rectum and the prostate gland. No pe lvic lymphadenopathy or osseous metastases detected. IMPRESSION MRI for radiation planning, as above. I have personally reviewed the image(s) and the resident's interpretation and agree with the findings, Grant fierro MD at 01/30/2021 3:19 PM Thank you for letting us participate in the care of this patient. For questions regarding this report, please contact e number below. Fran Espinosa MD IMG MRI ORDERABLES documented in this encounter Visit Diagnoses Diagnosis Malignant neoplasm of prostate documented in this encounter Care Teams Lumber Stacker Operator Relationship Specialty Start Date End Date Aletha Newell APRN PCP - General Urology 12/27/20 [address] [place] [address] documented as of this encounter
--- OUTSIDE RECORDS SUMMARY | 2022-10-04 00:47 | XMS_ITS | Encounter Summary ---
:1945 Author Organization [facility] [place] [address] Care Team Providers Name Role Phone Aletha Newell APRN Primary Care Provider Encounter Details Date Type Department Care Team Description 03/29/2021 Office Visit Radiation Oncology at Fran Espinosa M alignant neoplasm of [facility] prostate [address] [place], [place] RADIATION ONCOL OGY [address] [place], [place] [phone] (Wo rk) Social History Tobacco Use Types [...] Sign Reading Time Taken Comments Blood Pressure 141/72 03/29/2021 8:16 AM EDT Pulse 77 03/29/2021 8:16 AM EDT Temperature 35.8 ??C (96.5 ??F) 03/29/2021 8:16 AM EDT Respiratory Rate 16 03/29/2021 8:16 AM EDT Oxygen Saturation 96% 03/29/2021 8:16 AM EDT Inhaled Oxygen Concentration - - Weight 80.2 kg (176 lb 12.8 oz) 03/29/2021 8:16 AM EDT Height 172.7 cm (5' 8) 03/29/2021 8:16 AM EDT Body Mass Index 26.88 03/29/2021 8:16 AM EDT documented in this encounter Progress Notes Fran Espinosa MD - 03/29/2021 8:15 AM EDT Images from the original note were not included. RADIATION ONCOLOGY - Weekly On Treatment Visit Note 03/29/21 FRAN ESPINOSA MD Radiation Oncology [facility] [phone] (paging code machine operator) Pager #[phone] PATIENT IDENTIFICATION Name Benitez Fang Date of [...] 79.2 Gy in 44 fractions Current Dose: 64.8 Gy in 36 fractions INTERVAL HISTORY General Overall feels well. GI Loose / watery stool if he deviates from LRD. Nocturia 1 x/nt at baseline, sometimes [...] LUTS) 4 ( Mild LUTS) MEDICATIONS Medications 03/29/21 0821 Medication Sig Taking? tamsulosin (Flomax) 0.4 mg [...] WNL LFTs 03/08/21 - WNL EXAM: BP 141/72 (Patient Position: Sitting) Pulse 77 Temp 35.8 ??C (96.5 ??F) (Temporal) Resp 16 Ht 172.7 cm (5' 8) Wt 80.2 kg (176 lb 12.8 oz) SpO2 96% BMI 26.88 kg/m?? Constitutional: he appears well-developed and well-nourished. [...] anticipated. Continue as planned. Next Lupron due April - he wants a 6 month shot here. Diarrhea: Rec LRD. Imodium prn. LUTS: Cont Flomax 0.8mg qAM, ibuprofen 400mg qhs. Cialis prn. Followup: Return to clinic next week for on treatment check. documented in this encounter Plan of Treatment Not on filedocumented as of this encounter Visit Diagnoses Diagnosis Malignant neoplasm of prostate documented in this encounter Care Teams Acquisition Cost Estimator Relationship Specialty Start Date End Date Aletha Newell APRN PCP - General Urology 12/27/20 [address] [place] [address] documented as of this encounter
--- OUTSIDE RECORDS SUMMARY | 2022-10-04 00:47 | XMS_ITS | Encounter Summary ---
:1945 Author Organization [place] [address] Care Team Providers Name Role Phone Aletha Newell APRN Primary Care Provider Reason for Referral Diagnostic Test (Routine) - Closed Specialty Diagnoses / Procedures Referred By Contact Refer red To Contact Radiology Diagnoses Malignant neoplasm of prostate Fran Espinosa MD [facility] Rad Mri Procedures MRI Pelvis wwo (Prostate) [address] [place] [address] [place] [address] [place] [phone] Referral ID Status Reason Start Date Expiration Date Visits V isits Requested Authorized [id number] Closed Specialty 12/08/2020 06/07/2022 1 1 Service Requested Reason for Visit Diagnostic Test (Routine) - Closed Specialty Diagnoses / Procedures Referred By Contact Refer red To Contact Radiology Diagnoses Malignant neoplasm of prostate Fran Espinosa MD [facility] Rad Mri Procedures MRI Pelvis wwo (Prostate) [address] [place] [address] [place] [address] [place] [phone] Referral ID Status Reason Start Date Expiration Date Visits V isits Requested Authorized [id number] Closed Specialty 12/08/2020 06/07/2022 1 1 Service Requested Encounter Details Date Type Department Care Team Description 12/28/2020 Hospital Encounter MRI at [facility] Francisca Fran S, Malignant neoplasm [facility] of prostate [address] [place]ATION [address] ONCOLOGY [phone] [place] [address] Social History Tobacco Use Types Packs/Day Years [...] needed. celecoxib (CELEBREX) 200 200MG = 1 Capsule(s), 0 08/11/2006 mg capsule PO, Once daily bicalutamide (Casodex) Start taking 1 pill 30 tablet 3 11/1103/29/2021 50 mg Tablet daily today. You can stop when radiation is complete. documented as of this encounter Plan of Treatment Not on filedocumented as of this encounter Procedures Procedure Name Priority Date/Time Associated Diagnosis Comme nts MRI PELVIS WWO Routine 12/28/2020 1:36 PM Malignant neoplasm R esults for this (PROSTATE) EST of prostate procedure are i n the results section. documented in this encounter Results MRI Pelvis wwo (Prostate) [...] be present) References: Rolando S1, Lisbet JH1, Aaron S1, Smi th C1, Tay J1, Enriqueta M1, Gold S1, Bernard G1, Rayn K1, Braxton MJ1, Wood BJ1, Sahar PA1, Bahman PL1, Ishmael B1. ??A Grading System for the Assessment of Ris k of Extraprostatic Extension of Prostate Cancer at Multiparametric MRI. Radiology. 2019 Mar;290(3):709-719. doi: 10.1148/radiol.0175256706. Epub 2018Dec 01. Thank you for letting us participate in the care of this patient. For questions regarding this report, please contact e number below. ? Electronically signed by: Grant sosa MD, [facility] ([phone]), at 12/28/2020 2:05 PM Narrative 12/28/2020 2:05 PM EST EXAMINATION: MRI PELVIS WWO (PROSTATE) CLINICAL HISTORY: local staging prostate cancer, assess for MAKENZIE/SVI/LAD. REASON FOR PROSTATE EXAM: HAS PATIENT HAD PREVIOUS BIOPSY?:Yes,2019 MOST RECENT PSA LEVEL:115 AMY SCORE:3+4 TECHNIQUE: Multiparametric MRI of the pr [...] HAD PREVIOUS BIOPSY?:Yes,2019 MOST RECENT PSA LEVEL:115 AMY SCORE:3+4 TECHNIQUE: Multiparametric MRI of the pr [...] M1, Gold S1, Bernard G1, Rayn K1, Braxton MJ1, Waqas BJ1, Sahra PA1, Bahman PL1, Ishmael B1. A Grading System for the Assessment of Ris k of Extraprostatic Extension of Prostate Cancer at Multiparametric MRI. Radiology. 2019 Jan;290(3):709-719. doi: 10.1148/radiol.4395701149. Epub 2018Dec 01. Thank you for letting us participate in the care of this patient. For questions regarding this report, please contact e number below. Fran Espinosa MD IM MRI ORDERABLES documented in this encounter Visit Diagnoses Diagnosis Malignant neoplasm of prostate documented in this encounter Administered Medications Inactive Administered Medications - up to 3 most recent administrations Medication Order MAR Action Action Date Dose Rate Site gadoterate meglumine (Dotarem) Given 12/28/2020 1:26 PM EST 16 m Ls (0.5 mMol/mL) injection solution 0.2 mL/kg/dose 0.2 mL/kg/dose, Intravenous, ONCE PRN, 1 dose, Starting on Jodie 12/28/20 at 1329, Until Jodie 12/28/20 at 1326, Per Protocol, Radiology Contrast, Routine documented in this encounter Care Teams Hair Specialist Relationship Specialty Start Date End Date Aletha Newell APRN PCP - General Urology 12/27/20 [address] [place] [address] documented as of this encounter
--- OUTSIDE RECORDS SUMMARY | 2022-10-04 00:47 | XMS_ITS | Encounter Summary ---
:1945 Author Organization [facility] [place] [address] Care Team Providers Name Role Phone Aletha Newell APRN Primary Care Provider Reason for Referral Consultation (Routine) - Specialty Diagnoses / Procedures Referred By Contact Refer red To Contact Radiation Oncology Diagnoses Malignant neoplasm of prostate Fran Espinosa MD [facility] Rad Onc Office Procedures Simulation for Radiation Therapy Planning [address] [place] [address] [place] [id number] Referral ID Status Reason Start Date Expiration Date Visits V isits Requested Authorized [id number] Consult, 01/30/2021 04/30/2021 99 99 Test & Treat iagnostic Test (Routine) - Closed Specialty Diagnoses / Procedures Referred By Contact Refer red To Contact Radiology Diagnoses Malignant neoplasm of prostate Fran Espinosa MD [facility] Rad Mri Procedures MRI Pelvis wo (Prostate) [address] [place] [address] [place] [address] [place], [place] [address] Referral ID Status Reason Start Date Expiration Date Visits V isits Requested Authorized [id number] Closed Specialty 01/04/2021 07/04/2022 1 1 Service Requested Encounter Details Date Type Department Care Team Description 01/04/2021 Office Visit Radiation Oncology at Fran Espinosa M alignant neoplasm of [facility] MD prostate [address] [place] [address] [place], [place] RADIATION ONCOL OGY [address] [place], [place] [phone] (Wo rk) Social History Tobacco Use Types [...] Sign Reading Time Taken Comments Blood Pressure 174/90 01/04/2021 8:00 AM EST Pulse 80 01/04/2021 8:00 AM EST Temperature 36.7 ??C (98 ??F) 01/04/2021 8:00 AM EST Respiratory Rate 16 01/04/2021 8:00 AM EST Oxygen Saturation 98% 01/04/2021 8:00 AM EST Inhaled Oxygen Concentration - - Weight 79.3 kg (174 lb 12.8 oz) 01/04/2021 8:00 AM EST Height - - Body Mass Index - - documented in this encounter Patient Instructions Patient InstructionsFran Espinosa MD - 01/04/2021 8:30 AM EST We discussed the following next steps as [...] are considered high risk. 2. Your highest [place] score was 7 (this is how aggressive your prostate cancer looks under the microscope). [place] scores for cancer range from 6-10, and 6 is considered lowest risk, while scores of8-10 are considered higher risk. 3. How aggressive your prostate cancer felt when Dr. Rojas did the prostate exam (through the rectum) and the MRI. The MRI did not show any evidence of cancer outside of your prostate (which is good news). 2. Radiation Treatment Options: Radiation for your [...] you to my colleague Dr. Rai in [place] for a further discussion. 3. Fiducial marker [...] arrive to when you leave the building. 4. Radiation Therapy and Planning: Radiation therapy [...] of completion radiation. 6. SIDE EFFECTS - Truck Caterer: These can include be permanent damage of the radiated tissues, including the rectum/bowel, bladder, prostate and surrounding tissues. Potential serious injury is rare, but can include poor wound healing, bleeding, or destruction of healthy tissue that may require surgery to repair and may result in a colostomy (bag for defecation) or urostomy (bag for urination). There may be a slow, termite exterminator decrease in your sexual function as well, [...] anti-testosterone therapy for at least 24 months if not 36 months (typically starting 2 months before radiation, contiuing for 2 months during radiation and ongoing after radiation is completed). This is usually given as a shot that lasts for 3 months at a time and Dr Rojas actually already gave you a 6 month shot. The reason we recommend this is that the male hormone testosterone is used by prostate cancer as a fuel. By decreasing the body's production of testosterone, we can 'starve' the prostate cancer. Themain side effects of hormone therapy include hot flashes, night sweats, weight gain, depressed mood, loss of sexual interest and impotence. There is also a very low risk of heart attack among men who have recently had a heart attack. These side effects usually reverse within 3-6 months of stopping thehormone therapy when testosterone recovers, although it can take up to a full year. During your radia tion treatments we would also give you a pill to take once a day called Casodex (bicaluatamide) thatblocks the effect of testosterone in the body. I will send this to your pharmacy today. After about 4-6 weeks, we should check your liver function to be sure that this medication is not harming your liver (which it can do in about 1 out of 500 people) so we will request these labs to be drawn in the next few days. Please do not hesitate to call me at [phone] with any other questions or concerns you have. If I am not here, one of our radiation oncology nurses can assist you or help you get in touch with me. A Radiation Oncology doctor is also heavy antiarmor weapons infantryman after our normal hours and on weekends for urgent questions or concerns related to radiation treatments that can not wait until normal business hours. To reach the on-call doctor after-hours, just call and have the radius corner machine operator page the Radiation Oncologist heavy antiarmor weapons infantryman. And, as always, if you experience any [...] Fall resulting in injury 7. Uncontrollable bleeding Fran Lee MD, MS Fisheries Enforcement Officer of Radiation Oncology [place] documented in this encounter Progress Notes Fran Espinosa MD - 01/04/2021 8:30 AM EST Radiation Oncology Established Patient Followup Note Fran Espinosa MD, MS [facility] Patient Identification: Benitez Fang is a 75 y.o. year old male with very high risk prostate cancer (PSA 115, Gl 3+4,cT2). For details regarding initial presentation please refer to my consultation note dated 12/08/20. INTERVAL HISTORY I am seeing him today to review his interval medical history, the treatment plan for his prostate cancer, the logistics of external beam radiotherapy (including fiducial marker placement, spaceOAR gel implantation, planning MRI, CT simulation and treatment itself), possible acute toxicities and/or late complications. We reviewed his MRI that showed no evidence of MAKENZIE/SVI/LAD. He is therefore a suitable candidate forspaceOAR placement. With regard to his LUTS, he feels that since starting ADT are much improved. IPSS as surveyed today is 4/2. Specifically he has improved emptying, initiation and less straining to void. Nocturia is stable at 1-2x/nt. ASSESSMENT / PLAN Logistics, toxicities and complications of LT-ADT + pelvic / prostatic radiation were reviewed with the patient today. With regard to his bothersome LUTS at baseline, I am pleased to see that he has responded appropriately to ADT. I will communicate his news to Dr Rojas. Afterwards, informed consent for fiducial marker, spaceOAR placement, CT simulation and external beam radiotherapy was obtained. Nursing staff will provide additional teaching with regard to pre and post procedure medications. We also discussed the need to check LFTs in the next 1-2 weeks given that he has been on casodex fornearly 1 month. We will help to arrange this lab draw. Time Attestation: I certify spending at least 40 minutes in providing care to this patient today, 01/04/21 as reflected by the following activities: - review of his medical record in the chart - discussion of the above with the patient as part of shared medical decision making - documenting the outcome of today's visit as above documented in this encounter Plan of Treatment Scheduled Orders Name Type Priority Associated Diagnoses Order S chedule Simulation for Procedures Routine Malignant neoplasm of Orde red: 01/04/2021 Radiation Therapy prostate Planning documented as of this encounter Results Hepatic Function Panel (01/30/2021 11:20 AM EDT) P athologist Signature Total Protein 7.1 6.1 - 8.0 TONIE NANCY gm/dL [facility] Albumin 4.3 3.2 - 5.2 TONIE NANCY gm/dL [facility] AST 16 0 - 39 TONIE NANCY unit/L [facility] ALT 17 0 - 55 TONIE NANCY unit/L [facility] Alk Phos 71 40 - 130 TONIE NANCY unit/L [facility] Total 0.4 0.2 - 1.3 TONIE NANCY Bilirubin mg/dL [facility] Bili, Direct 0.1 0.0 - 0.3 TONIE NANCY mg/dL [facility] Specimen Anatomical Collection Method Collection Time Receive d Time (Source) Location / / Volume Laterality Blood specimen 01/30/2021 11:20 1 (specimen) AM EDT 11:36 AM EDT Resulting Agency Comment Spec In Lab Fran Espinosa MD CHEMISTRY ORDERABLES Performing Organization Address City/State/ZIP Code Phon e Number [facility] [place] [address] MRI Pelvis wo (Prostate) (01/30/2021 10:15 AM [...] ? Electronically signed by: Grant sosa MD, [facility] ([phone]), at 01/30/2021 3:19 PM Narrative 01/30/2021 3:19 PM EDT EXAMINATION: MRI [...] below. Electronically signed by: Grant sosa MD, [facility] ([phone]), at 01/30/2021 3:19 PM Fran Espinosa MD IMG MRI ORDERABLES documented in this encounter Visit Diagnoses Diagnosis Malignant neoplasm of prostate Malignant neoplasm of prostate documented in this encounter Care Teams Outside Deliverer Relationship Specialty Start Date End Date Aletha Newell APRN PCP - General Urology 12/27/20 [address] [place] [address] documented as of this encounter
--- OUTSIDE RECORDS SUMMARY | 2022-10-04 00:47 | XMS_ITS | Encounter Summary ---
:1945 Author Organization [facility] [place] [address] Care Team Providers Name Role Phone Aletha Newell APRN Primary Care Provider Encounter Details Date Type Department Care Team Description 12/12/2020 Telephone Radiation Oncology a t [facility] Jethro Holland [address] [place] [phone] Social History Tobacco Use Types [...] on filedocumented in this encounter Care Teams Sash Assembler Relationship Specialty Start Date End Date Aletha Newell APRN PCP - General Urology 12/06/20 12/26/20 [address] [place] [address] documented as of this encounter
--- OUTSIDE RECORDS SUMMARY | 2022-10-04 00:47 | XMS_ITS | Encounter Summary ---
:1945 Author Organization [facility] [place] [address] Care Team Providers Name Role Phone Aletha Newell APRN Primary Care Provider Encounter Details Date Type Department Care Team Description 04/05/2021 Office Visit Radiation Oncology at Fran Espinosa M alignant neoplasm of [facility] prostate [address] [place], [place] RADIATION ONCOL OGY [address] [place], [place] [phone] (Wo rk) Social History Tobacco Use Types [...] Sign Reading Time Taken Comments Blood Pressure 158/76 04/05/2021 8:00 AM EDT Pulse 72 04/05/2021 8:00 AM EDT Temperature 36.7 ??C (98 ??F) 04/05/2021 8:00 AM EDT Respiratory Rate 15 04/05/2021 8:00 AM EDT Oxygen Saturation 97% 04/05/2021 8:00 AM EDT Inhaled Oxygen Concentration - - Weight 79.1 kg (174 lb 6.4 oz) 04/05/2021 8:00 AM EDT Height - - Body Mass Index 26.52 03/29/2021 8:16 AM EDT documented in this encounter Progress Notes Fran Espinosa MD - 04/05/2021 8:15 AM EDT Images from the original note were not included. RADIATION ONCOLOGY - Weekly On Treatment Visit Note 04/05/21 FRAN ESPINOSA MD Radiation Oncology [facility] [phone] (paging dividing machine operator) Pager #[phone] PATIENT IDENTIFICATION Name Benitez Fang Date of 1945 PCP Aletha Newlel APRN Referring MD (if different) Diagnosis High-Risk [...] 79.2 Gy in 44 fractions Current Dose: 73.8 Gy in 41 fractions INTERVAL HISTORY General Overall feels well. GI Loose / watery stool if he deviates from LRD. Imodium helps. Nocturia 1 x/nt per baseline. Weaker stream in AM until Flomax kicks in. Taking Cialis occasionally, flomax 0.8mg qAM, Ibuprofen 400mg prn. Has not needed ibuprofen this week. (He tried flomax BID butdaytime symptoms worsened.) Baseline IPSS history is listed below. Pain: Pain score today is 0/10. Prostate Today's Scores 12/08/2020 01/04/2021 Sexual Health Inventory for Men 1 (Severe ED) - International Prostate Symptom Score 21 (Severe LUTS) 4 ( Mild LUTS) MEDICATIONS Medications 04/05/21 0823 Medication Sig Taking? bicalutamide (Casodex) 50 mg Tablet start taking one tablet daily today. You can stop when radiationis complete Yes tamsulosin (Flomax) 0.4 mg Capsule Take 0.8 mg by mouth every morning. Yes tadalafiL (CIALIS) 5 mg Tablet Take 5 mg by mouth daily as needed. Yes celecoxib (CELEBREX) 200 mg capsule 200MG = 1 Capsule(s), PO, Once daily Yes ibuprofen (Advil;Motrin) 200 mg Tablet Take 400 mg by mouth every 6 hours as needed for Pain. IMAGING / LABS I have personally reviewed this patient's interval portal imaging to confirm accurate positioning and alignment which matches the patient's original approved treatment planning images. LFTs 01/30/21 - WNL LFTs 03/08/21 - WNL EXAM: BP 158/76 Pulse 72 Temp 36.7 ??C (98 ??F) Resp 15 Wt 79.1 kg (174 lb 6.4 oz) SpO2 97% BMI 26.52 kg/m?? Constitutional: he appears well-developed and well-nourished. [...] anticipated. Continue as planned. Next Lupron due week of April 23 - he wants a 6 month shot here. Can stop casodex when RT is complete. Diarrhea: Rec LRD. Imodium prn. LUTS: Cont Flomax 0.8mg qAM, ibuprofen 400mg qhs. Cialis prn. Followup: EoT / RV week of 04/23 for Lupron. Lab check prior. documented in this encounter Plan of Treatment Not on filedocumented as of this encounter Visit Diagnoses Diagnosis Malignant neoplasm of prostate documented in this encounter Care Teams Accountant Relationship Specialty Start Date End Date Aletha Newell APRN PCP - General Urology 12/27/20 [address] [place] [address] documented as of this encounter
--- OUTSIDE RECORDS SUMMARY | 2022-10-04 00:47 | XMS_ITS | Encounter Summary ---
:1945 Author Organization [facility] [place] [address] Care Team Providers Name Role Phone Aletha Newell APRN Primary Care Provider Encounter Details Date Type Department Care Team Description 04/10/2021 Orders Only Radiation Oncology at [facility] Fran MD [address] RADIATION ONCOLOGY [facility] [id number] [phone] Social History Tobacco Use Types Packs/Day Years [...] on filedocumented in this encounter Care Teams Needle Process Felt Goods Supervisor Relationship Specialty Start Date End Date Aletha Newell APRN PCP - General Urology 12/27/20 [address] [place], [place] [address] documented as of this encounter
--- OUTSIDE RECORDS SUMMARY | 2022-10-04 00:47 | XMS_ITS | Encounter Summary ---
:1945 Author Organization [facility] [place] [address] Care Team Providers Name Role Phone Teo Cody MD, Silviano Primary Care Provider Encounter Details Date Type Department Care Team Description 10/27/2020 Ancillary Procedure Radiology Library at Fran Espinosa MD [address] [facility] [place] [address] [phone] (Wo rk) Social History Tobacco Use Types [...] Diagnosis Comme nts FILM LIBRARY Routine 10/27/2020 12:00 AM Results for this STORAGE ONLY CT EST procedure ar e in ABDOMEN AND PELVIS the resul ts section. documented in this encounter Results Film Library- Storage Only CT Abdomen & Pelvis (10/27/2020 12:00 AM EST) Specimen (Source) Anatomical Location Collection Method / Collectio n Time Received Time / Laterality Volume Narrative [facility] - 11/01/2020 10:01 AM EST This exam is auto-finalizing. It's purpo se is for storage only. Fran Espinosa MD IMG FILM LIBRARY ORDERABLES Performing Organization Address City/State/ZIP Code Phon e Number RAD [place], [place] documented in this encounter Visit Diagnoses Not on filedocumented in this encounter Care Teams Engraver Flatware Relationship Specialty Start Date End Date Silviano Bruce MD PCP - General 10/02/10 12/05/20 [address] [place] [address] documented as of this encounter
--- OUTSIDE RECORDS SUMMARY | 2022-10-04 00:47 | XMS_ITS | Encounter Summary ---
:1945 Author Organization [facility] [place] [address] Care Team Providers Name Role Phone Aletha Newell APRN Primary Care Provider Encounter Details Date Type Department Care Team Description 01/30/2021 Laboratory Appointment Lab 3L [facility] Malignant neoplasm of [facility] [place] [phone] Social History Tobacco Use Types Packs/Day Years [...] Name Priority Date/Time Associated Diagnosis Comme nts HC VENIPUNCTURE Routine 01/30/2021 11:20 AM Malignant neoplasm of Results for this EDT prostate procedure are i n the results section. documented in this encounter Results Hepatic Function Panel (01/30/2021 11:20 AM EDT) P athologist Signature Total Protein 7.1 6.1 - 8.0 TONIE NANCY gm/dL [facility] Albumin 4.3 3.2 - 5.2 [facility] NANCY gm/dL [facility] AST 16 0 - 39 [facility] NANC[facility] unit/L [facility] ALT 17 0 - 55 [facility]ANC[facility] unit/L [facility] Alk Phos 71 40 - [address] [facility] Total 0.4 0.2 - 1.3 [facility] NANCY Bilirubin mg/dL [facility] Bili, Direct 0.1 0.0 - 0.3 [facility] NANCY mg/dL [facility] Specimen Anatomical Collection Method Collection Time Receive d Time (Source) Location / / Volume Laterality Blood specimen 01/30/2021 11:20 1 (specimen) AM EDT 11:36 AM EDT Resulting Agency Comment Spec In Lab Fran Espinosa MD CHEMISTRY ORDERABLES Performing Organization Address City/State/Z[place] [address] documented in this encounter Visit Diagnoses Diagnosis Malignant neoplasm of prostate documented in this encounter Care Teams Ultrasound Technol Relationship Specialty Start Date End Date Aletha Newell APRN PCP - General Urology 12/27/20 [address] [place] [address] documented as of this encounter
--- OUTSIDE RECORDS SUMMARY | 2022-10-04 00:47 | XMS_ITS | Encounter Summary ---
:1945 Author Organization [facility] [place] [address] Care Team Providers Name Role Phone Toe Cody MD, Silviano Primary Care Provider Encounter Details Date Type Department Care Team Description 11/06/2020 [place] [address] Social History Tobacco Use Types Packs/Day [...] Sig Dispensed Refills Start Date End Date celecoxib (CELEBREX) 200 200MG = 1 0 08/11/2006 mg capsule Capsule(s), PO, Once daily hydroCODone-acetaminophen 1 Tablet(s), PO, 0 10/0 12/200512/08/2020 (NORCO) 7.5-325 mg per Four times daily prn tablet naproxen (NAPROSYN) 250 0 08/11/2006 0 12/08/2020 mg tablet documented as of this encounter Plan of Treatment Not on filedocumented as of this encounter Procedures Procedure Name Priority Date/Time Associated Diagnosis Comme nts SURGICAL PATHOLOGY Routine 11/06/2020 2:22 PM Res ults for this REPORT EST procedure are i n the results section. documented in this encounter Results Surgical Pathology Report (11/06/2020 2:22 PM EST) Component Value Ref Test Analysis Performed At [facility] Range Method Time Signature Surgical [id number] ? Location: [facility] Pathology PROCTOR Report The signing pathologist has (i) examined the relevant preparation(s) for the [facility] specimen(s) and (ii) rendered or confirmed the diagnosis(es) . HOSPITAL LABORATORY . ?Surgic al Pathology DIAGNOSIS CONSULTATION CASE Outside slides labeled [id number], collection date 0. A - Prostatic core needle biopsy, right base lateral: ?Benign prostatic tissue. B - Prostatic core needle biopsy, right base medial: ?Benign prostatic tissue C - Prostatic core needle biopsy, right mid lateral: ??- Prostatic adenocarcinoma, Grade Group 1, Jc score 3+3=6 ?discontinuously involving 80% of a single core (approx imately ?5-10% of total tissue submitted). ??- Perineural invasion is identified. D - Prostatic core needle biopsy, right mid medial: ??- Prostatic adenocarcinoma, Grade Group 2, Jc score 3+4=7 ?involving 100% of a single core. ??- Estimated percentage of Terral pattern 4: 10%. ??- Perineural invasion is identified. E - Prostatic core needle biopsy, right apex lateral: ??- Prostatic adenocarcinoma, Grade Group 2, Terral score 3+4=7 ?involving 20% of a single core. ??- Estimated percentage of Jc pattern 4: 5%. F - Prostatic core needle biopsy, right apex medial: ??- Prostatic adenocarcinoma, Grade Group 1, Terral score 3+3=6 ?discontinuously involving 60% of a single core (approx imately ?40% of total tissue submitted). G - Prostatic core needle biopsy, left base lateral: ??- Prostatic adenocarcinoma, Grade Group 2, Terral score 3+4=7 ?involving 25% of a single core. ??- Estimated percentage of Jc pattern 4: 10%. H - Prostatic core needle biopsy, left base medial: ??- Prostatic adenocarcinoma, Grade Group 2, Jc score 3+4=7 ?involving 30% of a single core. ??- Estimated percentage of Terral pattern 4: 20%. I - Prostatic core needle biopsy, left mid lateral: ??- Prostatic adenocarcinoma, Grade Group 2, Terral score 3+4=7 ?discontinuously involving 95% of a single core (approx imately ?40% of total tissue submitted). ??- Estimated percentage of Jc pattern 4: 5-10%. ??- Perineural invasion is identified. J - Prostatic core needle biopsy, left mid medial: ??- Prostatic adenocarcinoma, Grade Group 2, Jc score 3+4=7 ?discontinuously involving 90% of a single core (approx imately ?20% of total tissue submitted). ??- Estimated percentage of Terral pattern 4: 5-10%. . DIAGNOSIS K - Prostatic core needle biopsy, left apex lateral: ??- Prostatic adenocarcinoma, Grade Group 1, Terral score 3+3=6 ?discontinuously involving 60% of a single core (approx imately ?40% of total tissue submitted). L - Prostatic core needle biopsy, left apex medial: ??- Prostatic adenocarcinoma, Grade Group 2, Terral score 3+4=7 ?involving 90% of a single core. ??- Estimated percentage of Terral pattern 4: 20%. Electronically signed by: ??Erik ALVAREZ, Sandra Manjarrez Verified: ??11/23/2020 ?Pathologist Performed at: ??-[facility] Dept. of Pathology, [place], [place] SPECIMEN(S) SUBMITTED CONSULTATION CASE A - 24 slides labeled [id number], collection date 09/29/2020 . [id number] Report to: [facility] Surgical Pathology Department [facility], [facility], 2nd Floor [address] [place], [place] ??[address] CLINICAL INFORMATION PSA 115 NG/dL SPECIMEN PROCESSING [facility] ([facility]) pathology slide(s) are reviewed. ??Refer to Diagnosis and Specimen Submitted for specific case infor antionette. For the full text of the [facility] report(s) please refer t o Non-DH Documentation Pathology in the electronic health record ( ?? eDH). Specimen (Source) Anatomical Collection Method Collection Time Re ceived Time Location / / Volume Laterality 11/06/2020 2:22 PM EST Fran Espinosa MD PATHOLOGY/CYTOLOGY ORDERABLE S Performing Organization Address City/State/ZIP [place] [address] documented in this encounter Visit Diagnoses Not on filedocumented in this encounter Care Teams Category Analyst Relationship Specialty Start Date End Date Silviano Bruce MD PCP - General 10/02/10 12/05/20 [address] [place] [address] documented as of this encounter
--- OUTSIDE RECORDS SUMMARY | 2022-10-04 00:47 | XMS_ITS | Encounter Summary ---
:1945 Author Organization [facility] [place] [address] Care Team Providers Name Role Phone Aletha Newell APRN Primary Care Provider Encounter Details Date Type Department Care Team Description 03/08/2021 Office Visit Radiation Oncology at Fran Espinosa M alignant neoplasm of [facility] prostate [address] [place], [place] RADIATION ONCOL OGY [address] [place], [place] [phone] (Wo rk) Social History Tobacco Use Types [...] Sign Reading Time Taken Comments Blood Pressure 140/73 03/08/2021 8:00 AM EDT Pulse 77 03/08/2021 8:00 AM EDT Temperature 36.5 ??C (97.7 ??F) 03/08/2021 8:00 AM EDT Respiratory Rate 16 03/08/2021 8:00 AM EDT Oxygen Saturation 98% 03/08/2021 8:00 AM EDT Inhaled Oxygen Concentration - - Weight 80.7 kg (178 lb) 03/08/2021 8:00 AM EDT Height - - Body Mass Index - - documented in this encounter Progress Notes Fran Espinosa MD - 03/08/2021 8:15 AM EDT Images from the original note were not included. RADIATION ONCOLOGY - Weekly On Treatment Visit Note 03/08/21 FRAN ESPINOSA MD Radiation Oncology [facility] [phone] (paging stabilizer operator) Pager #[phone] PATIENT IDENTIFICATION Name Benitez Fang Date of [...] 79.2 Gy in 44 fractions Current Dose: 37.8 Gy in 21 fractions INTERVAL HISTORY General Overall feels well. No changes since last seen. GI No diarrhea. Nocturia 1 x/nt at baseline, this week going 2x/nt. Taking Cialis occasionally, flomax 0.8mg qAM, Ibuprofen 400mg qhs. Slight, intermittent dysuria mostly at night. Baseline IPSS history is listed below. Pain: Pain score today is 0/10. Has neck pain related to the head-cup used for his treatment setup; taking ibuprofen daily. Prostate Today's Scores 12/08/2020 01/04/2021 Sexual Health Inventory for Men 1 (Severe ED) - International Prostate Symptom Score 21 (Severe LUTS) 4 ( Mild LUTS) MEDICATIONS Medications 03/08/21 0836 Medication Sig Taking? tamsulosin (Flomax) 0.4 mg [...] 0 - 55 unit/L 17 EXAM: BP 140/73 Pulse 77 Temp 36.5 ??C (97.7 ??F) Resp 16 Wt 80.7 kg (178 lb) SpO2 98% Constitutional: he appears well-developed and well-nourished. No [...] as planned. Next Lupron due April. LFTs scheduled for later today. LUTS: Rec split Flomax dosing from 0.8 qAM --> 0.4mg BID Followup: Return to clinic next week for on treatment check. documented in this encounter Plan of Treatment Not on filedocumented as of this encounter Visit Diagnoses Diagnosis Malignant neoplasm of prostate documented in this encounter Care Teams Facilities Maintenance Worker Relationship Specialty Start Date End Date Aletha Newell APRN PCP - General Urology 12/27/20 [address] [place] [address] documented as of this encounter
--- OUTSIDE RECORDS SUMMARY | 2022-10-04 00:47 | XMS_ITS | Encounter Summary ---
:1945 Author Organization [facility] [place] [address] Care Team Providers Name Role Phone Aletha Newell APRN Primary Care Provider Encounter Details Date Type Department Care Team Description 04/11/2021 Notes Only Radiation Oncology at Laila [place] RN [place] [phone] Social History Tobacco Use Types Packs/Day [...] documented as of this encounter Progress Notes Laila [place] RN - 04/11/2021 8:25 AM EDT Radiation Oncology Nursing Completion of Treatment Note Pt completed: Pelvis, Entire SV and Prostate Prescribed Dose 45 Gy in 25 fractions ? Boost Treatment Site 1 Proximal SV and Prostate Prescribe Dose 68.4Gy in 38 fractions ? Boost Treatment Site 2 Prostate Prescribed Dose 79.2 Gy in 44 fractions . Side effects/problems noted today: Loose stools only if deviates from LRD diet which he then controls with imodium with usually one dose required. Nocturia 2 times most nights this week with no changesin stream. Has not been taking ibuprofen. Teaching and discharge instructions reviewed: Instructed to resume ibuprofen prn which he had already planned on doing for nocturia. Instructed to call if no improvement or worsening nocturia. Instructed to continue LRD for now and imodium prn. Expected follow up/referrals: 04/26/21 EoT visit with yung Flor. Patient has our contact numbers Patient/family response to instructions: Patient verbalized understanding of these instructions. documented in this encounter Plan of Treatment Not on filedocumented as of this encounter Visit Diagnoses Not on filedocumented in this encounter Care Teams Nurse Rn Bsn Relationship Specialty Start Date End Date Aletha Newell APRN PCP - General Urology 12/27/20 [address] [place] [address] documented as of this encounter
--- OUTSIDE RECORDS SUMMARY | 2022-10-04 00:47 | XMS_ITS | Encounter Summary ---
:1945 Author Organization [facility] [place] [address] Care Team Providers Name Role Phone Aletha Newell APRN Primary Care Provider Encounter Details Date Type Department Care Team Description 01/24/2021 Procedure visit Radiation Oncology Fran Espinosa M alignant neoplasm at [facility] of prostate [address] [place], [place] RADIATION ONCOL OGY [address] [place], [place] [phone] Social History Tobacco Use Types Packs/Day Years [...] Sign Reading Time Taken Comments Blood Pressure 173/86 01/24/2021 10:01 AM EDT Pulse 80 01/24/2021 10:01 AM EDT Temperature 36.7 ??C (98.1 ??F) 01/24/2021 8:06 AM EDT Respiratory Rate 16 01/24/2021 9:50 AM EDT Oxygen Saturation 99% 01/24/2021 9:50 AM EDT Inhaled Oxygen Concentration - - Weight - - Height - - Body Mass Index - - documented in this encounter Patient Instructions Patient InstructionsBrittney Da Silva RN - 01/24/2021 8:30 AM EDT After Your Gold Coil Implantation Procedure: ?? You may resume normal activity. ?? You may resume intercourse in one week. ?? You may take extra-strength Tylenol for any discomfort. Avoid NSAID's such as ibuprofen and aspirin for 48 hours after procedure as these medications could cause bleeding. ?? Take your dexamethasone as directed. Twice a day for 3 days , then once a day for 3 days. This medication helps to control swelling. ?? Resume your :[ Ibuprofen, Celebrex ] after 48 hours. ?? Call us if you notice any unusual swelling, pain, bleeding or if you have any other concerns. Future appointments : 01/30/[address] [facility] 09:30 MRI. Arrive at specific time as instructed by MRI staff 11:15 Lab draw at Section 3 K 12:30 CT SIM. Have a comfortably full bladder by 1:00 How to reach us: [phone] After Hours/Weekends- Please ask for the Radiation Oncologist to be paged documented in this encounter Progress Notes Brittney Da Silva RN - 01/24/2021 8:30 AM EDT Radiation Oncology Procedure Nursing Note Procedure: Prostate fiducial / Space Oar implant by Dr Fran Espinosa Time of patient arrival to clinic:0800 See flowsheet for all vital signs and medication list updated info. Pre procedure questions: [ n/a ] If Applicable: He confirms taking lorazepam 1mg po at (time): He drove himself today [ yes ] if Applicable: He confirms holding blood thinner as directed. [yes ] He confirms taking Levaquin( antibiotic) this morning [ yes ] He administered fleets enema as directed; last night and this AM, with good results. Patient states all his questions are answered and he is ready to proceed. Procedure Time out/start time: See Time out flow sheet for details. Assessment:Patient tolerated procedure well with no complaint of pain. Vitals: 01/24/21 0806 01/24/21 0950 01/24/21 1001 BP: 163/88 137/88 173/86 Patient Position: Sitting Lying Sitting Pulse: 80 72 80 Resp: 16 16 Temp: 36.7 ??C (98.1 ??F) SpO2: 99% 99% See flow sheet or click on expand all in this progress note for Vital signs. Time procedure ended:944 After procedure,he was assisted to stretcher and transported to stretcher/emergency equipment bay for further monitoring. Time: 10:00 assisted to recliner. He denied lightheadedness. Vitals stable. After sitting in recliner for approximately XXX mins he dressed self. Gait steady. >> See AVS for printed instructions. [ x ]Take dexamethasone (steroid)as previously instructed (2mg twice a day for 3 days and once a day for 3 days). [x ]He may take Tylenol as needed for mild discomfort. He has the [facility] phone number and verbalized understanding to ask for the trade economist radiation oncologist if he needs to after clinic hours. [n/a ] If applicable: He was reminded to not drive home due to Lorazepam. Time of discharge: 10:30 vital signs stable,and gait steady. Fran Espinosa MD - 01/24/2021 8:30 AM EDT Identification and Indications: Benitez Fang is a 75 y.o. gentleman with high-risk prostate cancer who presents today for theprocedures listed below: Procedures and Rationale: 1. Gold coil fiducial marker placement in prostate for daily image guided localization. 2. SpaceOAR hydrogel injection between rectal wall and prostate gland to reduce rectal irradiation during radiation therapy. SpaceOAR is an absorbable polyethylene glycol (PEG) hydrogel (SpaceOAR) thatwas placed into perirectal fat space, thereby pushing the rectum away from the prostate. Physician(s): Fran Espinosa MD, MS Anesthesia: Local lidocaine (2%) Description of Procedure: Benitez Fang was placed in the lithotomy position with EMLA cream applied to the perineal skin. After a time-our was performed, a transrectal ultrasound probe was then placed within the rectum and stabilized using the placement positioning system. The perineum was prepped and draped. The SpaceOAR system was then prepared as per outpatient psychiatrist's recommendations, using sterile technique. Lidocaine was then used to anesthetize SQ tissues and a needle was placed trans- perineally into the right lobe of the prostate under ultrasound guidance with the graticule serving for stabilization andposition verification. The ultrasound was used to monitor the advancement of the needle, and lidocaine was locally applied as the needle was advanced towards the apex of the prostate. Once it was properly positioned, two 5mm gold coils ([employer] Books) were separately placed within the right lobe, and the needle was removed. This procedure was repeated within the left prostate. Prior to SpaceOARneedle insertion, an axial measurement of the space between the prostate (mid gland) and rectum was noted. With the subject maintained in the dorsal lithotomy position, the transrectalultrasound (TRUS) probe was positioned to enable visual guidance of the needle into the space between the prostate and the rectum. Under transrectal ultrasound guidance, the 15 cm 18G needle was inserted through the rectourethralismuscle and the needle tip advanced into the perirectal fat inferior to the prostate all by using a transperineal approach and with side- fire transrectal ultrasound guidance. The needle position was confirmed in both sagittal and axial mercado. Saline was used to dissect the space between the Denonvilliers??? fascia and anterior rectal wall (???hydrodissection?? ). A space was created with hydrodissection. With the needle tip at mid gland, the axial field was viewed to confirm the needle was not in the rectal wall (movement of the needle tip without corresponding movement of the rectal wall will confirm perirectal placement). While maintaining the desired position, aspiration was done to ensure that the needle was not in vascular space. The assembled SpaceOAR delivery system was then attached to the 18G needle. Under ultrasound guidance (sagittal plane), a smooth, continuous injection technique was used to dispense the SpaceOAR hydrogel into the space between the prostate and rectum (Denonvilliers??? fascia and the anterior rectal wall). The entire syringe contents (10 mL total) were injected without stopping. Optimal visualization of the needle during hydrogel administration was maintained at all times. An axial measurement of the space between the prostate (mid gland) and rectum immediately post-SpaceOAR injection was noted. No suspected penetration or compromise of the rectal wall occurred. Complications: none Estimated Blood Loss: minimal Disposition: Benitez Fang tolerated the treatment well. He will return shortly for MRI imaging and for CT-based simulation and treatment planning, with radiation therapy to proceed thereafter. documented in this encounter Plan of Treatment Not on filedocumented as of this encounter Visit Diagnoses Diagnosis Malignant neoplasm of prostate documented in this encounter Care Teams Hammerer Helper Relationship Specialty Start Date End Date Aletha Newell APRN PCP - General Urology 12/27/20 [address] [place] [address] documented as of this encounter
--- OUTSIDE RECORDS SUMMARY | 2022-10-04 00:47 | XMS_ITS | Encounter Summary ---
:1945 Author Organization [facility] [address] Care Team Providers Name Role Phone Aletha Newell APRN Primary Care Provider Encounter Details Date Type Department Care Team Description 02/08/2021 Office Visit Radiation Oncology at Fran Espinosa M alignant neoplasm of [facility] prostate [address] [place], [place] RADIATION ONCOL OGY [address] [place], [place] [phone] (Wo rk) Social History Tobacco Use Types [...] Sign Reading Time Taken Comments Blood Pressure 203/94 02/08/2021 1:00 PM EDT Pulse 73 02/08/2021 1:00 PM EDT Temperature 36.7 ??C (98 ??F) 02/08/2021 1:00 PM EDT Respiratory Rate 16 02/08/2021 1:00 PM EDT Oxygen Saturation 100% 02/08/2021 1:00 PM EDT Inhaled Oxygen Concentration - - Weight 80.3 kg (177 lb) 02/08/2021 1:00 PM EDT Height - - Body Mass Index - - documented in this encounter Progress Notes Fran Espinosa MD - 02/08/2021 12:45 PM EDT Images from the original note were not included. RADIATION ONCOLOGY - Weekly On Treatment Visit Note 02/08/21 Fran Espinosa MD, MS Radiation Oncology [facility] [phone] (paging ball machine operator) Pager #[phone] PATIENT IDENTIFICATION Name Benitez Fang Date of [...] 79.2 Gy in 44 fractions Current Dose: 1.8 Gy in 1 fraction INTERVAL HISTORY General No changes since last seen. Started today. GI No diarrhea. Nocturia 1 x/nt at baseline. Baseline IPSS history is listed below. Pain: Pain score today is 0/10/. Prostate Today's Scores 12/08/2020 01/04/2021 Sexual Health Inventory for Men 1 (Severe ED) - International Prostate Symptom Score 21 (Severe LUTS) 4 ( Mild LUTS) MEDICATIONS Medications 02/08/21 1311 Medication Sig Taking? DM/p-ephed/acetaminoph/doxylam (NYQUIL ORAL) Take by mouth nightly as needed. Yes tamsulosin (Flomax) 0.4 mg Capsule Take 0.8 mg by mouth every morning. Yes ibuprofen (Advil;Motrin) 200 mg Tablet Take 400 mg by mouth every 6 hours as needed for Pain. Yes bicalutamide (Casodex) 50 mg Tablet Start taking 1 pill daily today. You can stop when radiation is complete. Yes tadalafiL (CIALIS) 5 mg Tablet Take 5 mg by mouth as needed. celecoxib (CELEBREX) 200 mg capsule [...] - 55 unit/L 17 EXAM: BP (!) 203/94 Pulse 73 Temp 36.7 ??C (98 ??F) Resp 16 Wt 80.3 kg (177 lb) SpO2 100% Constitutional: he appears well-developed and well-nourished. No [...] Next Lupron due April. Next LFTs due late February. Hypertension Newly noted systolic BP >200 mmHg. Will ask him to recheck BP at home (he has a cuff). If persistently elevated will notify PCP. Followup: Return to clinic next week for on treatment check. documented in this encounter Plan of Treatment Not on filedocumented as of this encounter Visit Diagnoses Diagnosis Malignant neoplasm of prostate documented in this encounter Care Teams Trim Operator Relationship Specialty Start Date End Date Aletha Newell APRN PCP - General Urology 12/27/20 [address] [place] [address] documented as of this encounter
--- OUTSIDE RECORDS SUMMARY | 2022-10-04 00:47 | XMS_ITS | Encounter Summary ---
:1945 Author Organization [facility] [place] [address] Care Team Providers Name Role Phone Aletha Newell APRN Primary Care Provider Encounter Details Date Type Department Care Team Description 03/15/2021 Office Visit Radiation Oncology at Fran Espinosa M alignant neoplasm of [facility] prostate [address] [place], [place] RADIATION ONCOL OGY [address] [place], [place] [phone] (Wo rk) Social History Tobacco Use Types [...] Sign Reading Time Taken Comments Blood Pressure 148/63 03/15/2021 8:00 AM EDT Pulse 72 03/15/2021 8:00 AM EDT Temperature 36.5 ??C (97.7 ??F) 03/15/2021 8:00 AM EDT Respiratory Rate 20 03/15/2021 8:00 AM EDT Oxygen Saturation 98% 03/15/2021 8:00 AM EDT Inhaled Oxygen Concentration - - Weight 79.9 kg (176 lb 3.2 oz) 03/15/2021 8:00 AM EDT Height - - Body Mass Index - - documented in this encounter Progress Notes Fran Espinosa MD - 03/15/2021 7:45 AM EDT Images from the original note were not included. RADIATION ONCOLOGY - Weekly On Treatment Visit Note 03/15/21 FRAN ESPINOSA MD Radiation Oncology [facility] [phone] (paging wringer machine operator) Pager #[phone] PATIENT IDENTIFICATION Name Benitez Fang Date of [...] 79.2 Gy in 44 fractions Current Dose: 46.8 Gy in 26 fractions INTERVAL HISTORY General Overall feels well. No changes since last seen. GI No diarrhea. Nocturia 1 x/nt at baseline, none last night. Taking Cialis occasionally, flomax 0.8mg qAM, Ibuprofen 400mg qhs. (He tried flomax BID but daytime symptoms worsened.) Baseline IPSS history is listed below. Pain: Pain score today is 0/10. Prostate Today's Scores 12/08/2020 01/04/2021 Sexual Health Inventory for Men 1 (Severe ED) - International Prostate Symptom Score 21 (Severe LUTS) 4 ( Mild LUTS) MEDICATIONS Medications 03/15/21 0826 Medication Sig Taking? tamsulosin (Flomax) 0.4 mg [...] WNL LFTs 03/08/21 - WNL EXAM: BP 148/63 Pulse 72 Temp 36.5 ??C (97.7 ??F) Resp 20 Wt 79.9 kg (176 lb 3.2 oz) SpO2 98% Constitutional: he appears well-developed and [...] Continue as planned. Next Lupron due April. LUTS: Cont Flomax 0.8mg qAM, ibuprofen 400mg qhs. Cialis prn. Followup: Return to clinic next week for on treatment check. documented in this encounter Plan of Treatment Not on filedocumented as of this encounter Visit Diagnoses Diagnosis Malignant neoplasm of prostate documented in this encounter Care Teams Life Skills Specialist Relationship Specialty Start Date End Date Aletha Newell APRN PCP - General Urology 12/27/20 [address] [place] [address] documented as of this encounter
--- OUTSIDE RECORDS SUMMARY | 2022-10-04 00:48 | XMS_ITS | Encounter Summary ---
:1945 Author Organization [facility] Address [address] [place] [address] Care Team Providers Name Role Phone Aletha Newell ANGELA Primary Care Provider Encounter Details Date Type Department Care Team Description 08/13/2021 Lab Requisition [facility] Outr Resulting Lab, Pathology & Laboratory Provider [facility] [address] [place] [address] Social History Tobacco Use Types Packs/Day Years Used Date Smoking Tobacco: Never Assessed Sex Assigned at Date Recorded Not on file documented as of this encounter Plan of Treatment Not on filedocumented as of this encounter Procedures Procedure Name Priority Date/Time Associated Comments Diagnosis PSA TOTAL, Routine 08/13/2021 8:30 EDT Results for this DIAGNOSTIC procedure are i n the results section. documented in this encounter Results PSA TOTAL, DIAGNOSTIC (08/13/2021 8:30 EDT) P athologist Signature PSA <0.1 0.0 - 6.5 08/13/2021 [facility] ng/mL 17:59 EDT [facility] Specimen Anatomical Collection Method Collection Time Receive d Time (Source) Location / / Volume Laterality Blood VENOUS BLOOD / 08/13/2021 8:30 08/13/2021 Unknown EDT 16:11 EDT Narrative [facility] - 08/13/2021 17:59 EDT NOTE: Serum PSA concentration should not be in terpreted as absolute evidence for the presence or absence of malignant disease. Assayed on Siemens ADVIA Centaur XPT usi ng chemiluminescent technology.??Values obtained by using different assay methods cannot be used interchangeably. Provider Outr Resulting Lab CHEMISTRY & BLOOD GAS [facility]AN [facility] Performing Organization Address City/State/ZIP Code Phon e Number [facility] [address] [place] [address] SERVICES documented in this encounter Visit Diagnoses Not on filedocumented in this encounter Care Teams Courier Delivery Driver Relationship Specialty Start Date End Date Aletha Newell, POULTRY BARN MANAGER PCP - General 08/10/[address] [place] [address] [place] [id number] documented as of this encounter
--- OUTSIDE RECORDS SUMMARY | 2022-10-04 00:48 | XMS_ITS | Encounter Summary ---
:1945 Author Organization [facility] Address [address] [place] [address] Care Team Providers Name Role Phone Aletha Newell ANGELA Primary Care Provider Encounter Details Date Type Department Care Team Description 08/28/2020 Lab Requisition [facility] Outr Resulting Lab, Pathology & Laboratory Provider [facility] [address] [place] [address] Social History Tobacco Use Types Packs/Day Years Used Date Smoking Tobacco: Never Assessed Sex Assigned at Date Recorded Not on file documented as of this encounter Plan of Treatment Not on filedocumented as of this encounter Procedures Procedure Name Priority Date/Time Associated Comments Diagnosis PSA TOTAL, Routine 08/28/2020 9:00 EDT Results for this DIAGNOSTIC procedure are i n the results section. documented in this encounter Results (ABNORMAL) PSA TOTAL, DIAGNOSTIC (08/28/2020 9:00 EDT) P athologist Signature PSA 115.3 (H) 0.0 - 6.5 08/28/2020 [facility] ng/mL 17:52 EDT [facility]ENTER [facility] Specimen Anatomical Collection Method Collection Time Receive d Time (Source) Location / / Volume Laterality Blood VENOUS BLOOD / 08/28/2020 9:00 08/28/2020 Unknown EDT 16:54 EDT Narrative [facility] - 08/28/2020 17:52 EDT NOTE: Serum PSA concentration should not be in terpreted as absolute evidence for the presence or absence of malignant disease. Assayed on Siemens ADVIA Centaur XPT usi ng chemiluminescent technology.??Values obtained by using different assay methods cannot be used interchangeably. Provider Outr Resulting Lab CHEMISTRY & BLOOD GAS [facility] Performing Organization Address City/State/ZIP Code Phon e Number [facility] [address] [place] [address] SERVICES documented in this encounter Visit Diagnoses Not on filedocumented in this encounter Care Teams Manager Data Relationship Specialty Start Date End Date Aletha Newell, PORTER MARINA PCP - General 08/10/[address] [place] [address] [place] [phone] documented as of this encounter
--- OUTSIDE RECORDS SUMMARY | 2022-10-04 00:48 | XMS_ITS | Encounter Summary ---
:1945 Author Organization [facility] Address [address] [place] [address] Care Team Providers Name Role Phone Aletha Newell ANGELA Primary Care Provider Encounter Details Date Type Department Care Team Description 08/19/2022 Lab Requisition [facility] Outr Resulting Lab, Pathology & Laboratory Provider [facility] [address] [place] [address] Social History Tobacco Use Types Packs/Day Years Used Date Smoking Tobacco: Never Assessed Sex Assigned at Date Recorded Not on file documented as of this encounter Plan of Treatment Not on filedocumented as of this encounter Procedures Procedure Name Priority Date/Time Associated Comments Diagnosis PSA TOTAL, Routine 08/19/2022 8:41 EDT Results for this DIAGNOSTIC procedure are i n the results section. documented in this encounter Results PSA TOTAL, DIAGNOSTIC (08/19/2022 8:41 EDT) P athologist Signature PSA <0.1 <=6.5 ng/mL 08/19/2022 [facility] 18:35 EDT CENTER LABORATORY SERVICES Specimen Anatomical Collection Method Collection Time Receive d Time (Source) Location / / Volume Laterality Blood VENOUS BLOOD / 08/19/2022 8:41 08/19/2022 Unknown EDT 17:44 EDT Narrative [facility] - 08/19/2022 18:35 EDT NOTE: Serum PSA concentration should not be in terpreted as absolute evidence for the presence or absence of malignant disease. Assayed on Siemens ADVIA Centaur XPT usi ng chemiluminescent technology.??Values obtained by using different assay methods cannot be used interchangeably. Provider Outr Resulting Lab CHEMISTRY & BLOOD GAS SRAVAN REED Performing Organization Address City/State/ZIP Code Phon e Number [facility] [address] [place] [address] SERVICES documented in this encounter Visit Diagnoses Not on filedocumented in this encounter Care Teams Grit Removal Operator Relationship Specialty Start Date End Date Aletha Newell, MAP MOUNTER PCP - General 08/10/[address] [place] [address] [place] [phone] documented as of this encounter
--- OUTSIDE RECORDS SUMMARY | 2022-10-04 00:48 | XMS_ITS | Encounter Summary ---
:[address] [facility] Address [address] [place] [address] Care Team Providers Name Role Phone Aletha Newell ANGELA Primary Care Provider Encounter Details Date Type Department Care Team Description 09/12/2022 Lab Requisition [facility] Outr Resulting Lab, Pathology & Laboratory Provider [facility] [address] [place] [address] Social History Tobacco Use Types Packs/Day Years Used Date Smoking Tobacco: Never Assessed Sex Assigned at Date Recorded Not on file documented as of this encounter Plan of Treatment Not on filedocumented as of this encounter Procedures Procedure Name Priority Date/Time Associated Diagnosis Comme nts HOLD SST Today 09/11/2022 15:50 Results for this EDT procedure are i n the results section. SYPHILIS SEROLOGY Today 09/11/2022 15:50 Result s for this EDT procedure are i n the results section. LYME AB Today 09/11/2022 15:50 Results for this EDT procedure are i n the results section. documented in this encounter Results HOLD SST (09/11/2022 15:50 EDT) P athologist Signature Hold Hold 09/12/2022 [facility] 18:46 EDT CENTER LAB[facility]ORY SERVICES Specimen Anatomical Collection Method Collection Time Receive d Time (Source) Location / / Volume Laterality Blood VENOUS BLOOD / 09/11/2022 15:50 Unknown EDT 17:39 EDT Provider Outr Resulting Lab LAB INFO SERVICE AND SUPPO RT & PHONE RESULT Performing Organization Address City/State/ZIP Code Phon e Number [facility] [address] [place] [address] SERVICES SYPHILIS SEROLOGY (09/11/2022 15:50 EDT) Analysis Performed At Patho logist Time Signature Syphilis Negative Negative 09/13/2022 [facility] Serology 10:56 EDT CENTER LABORATORY SERVICES Specimen Anatomical Collection Method Collection Time Receive d Time (Source) Location / / Volume Laterality Blood VENOUS BLOOD / 09/11/2022 15:50 2 Unknown EDT 17:37 EDT Provider Outr Resulting Lab IMMUNOLOGY AND SEROLOGY OR DERABLES Performing Organization Address City/State/ZIP Code Phon e Number [facility] [address] [place] [address] SERVICES LYME AB (09/11/2022 15:50 EDT) athologist Signature Lyme Ab Negative Negative 09/13/2022 [facility] 10:44 EDT CENTER LABORATORY SERVICES Specimen Anatomical Collection Method Collection Time Receive d Time (Source) Location / / Volume Laterality Blood VENOUS BLOOD / 09/11/2022 15:50 2 Unknown EDT 17:37 EDT Provider Outr Resulting Lab IMMUNOLOGY AND SEROLOGY OR DERABLES Performing Organization Address City/State/[facility] Phon e Number [facility] [address] [place] [address] SERVICES documented in this encounter Visit Diagnoses Not on filedocumented in this encounter Care Teams Air Defense Control Officer Relationship Specialty Start Date End Date Aletha Newell, ANGELA PCP - General 08/10/[address] [place] [address] [place] [phone] documented as of this encounter
--- OUTSIDE RECORDS SUMMARY | 2022-10-04 00:48 | XMS_ITS | Encounter Summary ---
:1945 Author Organization [facility] Address [address] [place] [address] Care Team Providers Name Role Phone Aletha Newell ANGELA Primary Care Provider Encounter Details Date Type Department Care Team Description 02/06/2021 Lab Requisition [facility] Outr Resulting Lab, Pathology & Laboratory Provider [facility] [address] [place] [address] Social History Tobacco Use Types Packs/Day Years Used Date Smoking Tobacco: Never Assessed Sex Assigned at Date Recorded Not on file documented as of this encounter Plan of Treatment Not on filedocumented as of this encounter Procedures Procedure Name Priority Date/Time Associated Comments Diagnosis PSA TOTAL, Routine 02/06/2021 10:00 Results for this DIAGNOSTIC EDT procedure are i n the results section. documented in this encounter Results PSA TOTAL, DIAGNOSTIC (02/06/2021 10:00 EDT) P athologist Signature PSA 0.5 0.0 - 6.5 02/06/2021 [facility] ng/mL 21:53 EDT CENTER LABORATORY SERVICES Specimen Anatomical Collection Method Collection Time Receive d Time (Source) Location / / Volume Laterality Blood VENOUS BLOOD / 02/06/2021 10:00 Unknown EDT 20:50 EDT Narrative [facility] - 02/06/2021 21:53 EDT NOTE: Serum PSA concentration should not be in terpreted as absolute evidence for the presence or absence of malignant disease. Assayed on Siemens ADVIA Centaur XPT usi ng chemiluminescent technology.??Values obtained by using different assay methods cannot be used interchangeably. Provider Outr Resulting Lab CHEMISTRY & BLOOD GAS SRAVAN REED Performing Organization Address City/State/ZIP Code Phon e Number [facility] [address] [place] [address] SERVICES documented in this encounter Visit Diagnoses Not on filedocumented in this encounter Care Teams Chronic Manager Relationship Specialty Start Date End Date Aletha Newell, SCRAP CUTTER PCP - General 08/10/[address] [place] [address] [place] [phone] documented as of this encounter
--- OUTSIDE RECORDS SUMMARY | 2022-10-04 00:48 | XMS_ITS | Encounter Summary ---
:1945 Author Organization [facility] Address [address] [place] [address] Care Team Providers Name Role Phone Aletha Newell NP Primary Care Provider Encounter Details Date Type Department Care Team Description 10/01/2020 Lab Requisition [facility] Oscar Rojas prostate Pathology & MD Justin specific antigen Laboratory Medicine [address] [facility] [place], [place] [address] [facility] [id number] [place] [address] Social History Tobacco Use Types Packs/Day Years Used Date Smoking Tobacco: Never Assessed Sex Assigned at Date Recorded Not on file documented as of this encounter Plan of Treatment Not on filedocumented as of this encounter Procedures Procedure Name Priority Date/Time Associated Diagnosis Comme nts SURGICAL PATHOLOGY Today 09/29/2020 13:45 Elevated prostate Results for this EST specific antigen procedure a re in (PSA) the results section. documented in this encounter Results SURGICAL PATHOLOGY (09/29/2020 13:45 EST) Component Value Ref Test Analysis Performed Pathologis t Range Method Time At Signature Final A. PROSTATE, RIGHT BASE LATERAL, NEEDLE CORE BIOPSY: [facility] Diagnosis - Benign prostatic tissue. 0 10:[address] LAB[facility]ORY B. PROSTATE, RIGHT BASE MEDIAL, NEEDLE CORE BIOPSY: SERVICES - Benign prostatic tissue. C. PROSTATE, RIGHT MID LATERAL, NEEDLE CORE BIOPSY: - Prostatic adenocarcinoma, involving 1 of 1 core. - [place] score 3 + 3 = 6 ( grade group 1), discontinuously involving 0.5 mm of core (5% of core). - Perineural invasion is identified. - High-grade prostatic intraepithelial neoplasia (HG-PIN). D. PROSTATE, RIGHT MID MEDIAL, NEEDLE CORE BIOPSY: - Prostatic adenocarcinoma, involving 1 of 1 core. - [place] score 3 + 4 = 7 ( grade group 2), 10% Jc pattern 4, tumor extent 8 mm (60% of core). - Perineural invasion is identified. E. PROSTATE, RIGHT APEX LATERAL, NEEDLE CORE BIOPSY: - Prostatic adenocarcinoma, involving 1 of 1 core. - Jc score 3 + 4 = 7 ( grade group 2), 5% [place] pattern 4, tumor extent 3 mm (20% of core). - High-grade prostatic intraepithelial neoplasia (HG-PIN). F. PROSTATE, RIGHT APEX MEDIAL, NEEDLE CORE BIOPSY: - Prostatic adenocarcinoma, involving 1 of 1 core. - [place] score 3 + 3 = 6 ( grade group 1), discontinuously involving 6 mm of core (40% of core). - High-grade prostatic intraepithelial neoplasia (HG-PIN). - The immunohistochemistry results support the diagnosis. S ee comment. G. PROSTATE, LEFT BASE LATERAL, NEEDLE CORE BIOPSY: - Prostatic adenocarcinoma, involving 1 of 1 core. - [place] score 3 + 4 = 7 ( grade group 2), 10% [place] pattern 4, tumor extent 4 mm (25% of core). H. PROSTATE, LEFT BASE MEDIAL, NEEDLE CORE BIOPSY: - Prostatic adenocarcinoma, involving 1 of 1 core. - [place] score 3 + 4 = 7 ( grade group 2), 20% [place] pattern 4, tumor extent 6 mm (30% of core). See comment. - High-grade prostatic intraepithelial neoplasia (HG-PIN). I. PROSTATE, LEFT MID LATERAL, NEEDLE CORE BIOPSY: - Prostatic adenocarcinoma, involving 1 of 1 core. - Jc score 3 + 4 = 7 ( grade group 2), 5% Jc pattern 4, discontinuously involving 8 mm of core (40% of core). - Perineural invasion is identified. - High-grade prostatic intraepithelial neoplasia (HG-PIN). J. PROSTATE, LEFT MID MEDIAL, NEEDLE CORE BIOPSY: - Prostatic adenocarcinoma, involving 1 of 1 core. - [place] score 3 + 4 = 7 ( grade group 2), 10% [place] pattern 4, discontinuously involving 3 mm of core (20% of core). K. PROSTATE, LEFT APEX LATERAL, NEEDLE CORE BIOPSY: - Prostatic adenocarcinoma, involving 1 of 1 core. - [place] score 3 + 3 = 6 ( grade group 1), discontinuously involving 7 mm of core (40% of core). L. PROSTATE, LEFT APEX MEDIAL, NEEDLE CORE BIOPSY: - Prostatic adenocarcinoma, involving 1 of 1 core. - [place] score 3 + 4 = 7 ( grade group 2), 20% [place] pattern 4, tumor extent 12 mm (90% of core). See comment. Diagnosis Special Tester slides of susan s case were reviewed at the intradepartmental consultation conference. [facility] Comment 0 10:30 [facility] Immunoperoxidase stains were performed on this case to further characterize the lesion. [facility] ANTIBODY(CLONE)(BLOCK):RESULT SERVICES P504S (Racemase, AMACR) (SP116, Viola) (F1): P ositive in cells of interest. P63 (4A4, Biocare) (F1): Absent expression in area of intere st. NOTE: One or more of the re agents used in immunoperoxidase testing in this case may not have been cleared or approved by the U.S. Food and Drug Administration (FDA). The FDA has determined that such cl earance or approval is not n ecessary. These tests are used for clinical purposes. They should not be regarded as investigational or for research. These reagents' performance characteristics have been de termined by [facility] and/or by the referring laboratory. The positive and negative controls worked appropriately. If immunoperoxidase staining has been performed on alcoh ol fixed cytology specimens, which has not been fully validated, the assays should be interpreted with caution and correlated with clinical data. This laboratory is certified under the Clinical Laborato ry Improvement Amendments of 1988 (CLIA-88) as qualified to perform high complexity clinical laboratory testing. Attestation By the signature [facility] Electronically below, the attending 0 10:30 CENTER signed by physician certifies [facility] Silviano Russell that they have 1) SCARLETT Bynum MD on personally conducted a 10/06/2020 at gross and/or 1030 microscopic examination of the described specimen(s), and/or personally interpreted the results of laboratory testing of the described specimen(s), and 2) personally rendered or confirmed the above diagnosis. Clinical PSA 115 NG/dL [facility] History 0 10:30 [facility] SERVICES Gross A. [facility] Description Received in formalin dottie d with proper patient identification (initials B, K) and RT base lateral is a [place] cylindrical tissue, 1.1 x 0.1 cm. Entirely submitted in A1. 0 10:30 [facility] B. SERVICES Received in formalin dottie d with proper patient identification (initials B, K) and RT base medial is a [place] cylindrical tissue, 1.5 x 0.1 cm. Entirely submitted in B1. C. Received in formalin dottie d with proper patient identification (initials B, K) and RT mid lateral is a [place] cylindrical tissue, 0.9 x 0.1 cm. Entirely submitted in C1. D. Received in formalin dottie d with proper patient identification (initials B, K) and RT mid medial is a [place] cylindrical tissue, 1.7 x 0.1 cm. Entirely submitted in D1. E. Received in formalin dottie d with proper patient identification (initials B, K) and RT apex lateral is a [place] cylindrical tissue, 1.6 x 0.1 cm. Entirely submitted in E1. F. Received in formalin dottie d with proper patient identification (initials B, K) and RT apex medial is a [place] cylindrical tissue, 1.6 x 0.1 cm. Entirely submitted in F1. G. Received in formalin dottie d with proper patient identification (initials B, K) and LT base lateral is a [place] cylindrical tissue, 1.5 x 0.1 cm. Entirely submitted in G1. H. Received in formalin dottie d with proper patient identification (initials B, K) and LT base medial? is a [place] cylindrical tissue, 1.6 x 0.1 cm. Entirely submitted in H1. I. Received in formalin dottie d with proper patient identification (initials B, K) and LT mid lateral is a [place] cylindrical tissue, 1.9 x 0.1 cm. Entirely submitted in I1. J. Received in formalin dottie d with proper patient identification (initials B, K) and LT mid medial is a [place] cylindrical tissue, 1.6 x 0.1 cm. Entirely submitted in J1. K. Received in formalin dottie d with proper patient identification (initials B, K) and LT apex lateral? is a pale [place] cylindrical tissue, 2.0 x 0.1 cm. Entirely submitted in K1. L. Received in formalin dottie d with proper patient identification (initials B, K) and LT apex medial is a pale [place] cylindrical tissue, 1.1 x 0.1 cm. Entirely submitted in L1. EAMON ENCARNACION(ASCP) 10/02/2020 11:34 Performing [facility] Lab 0 10:30 [facility] Scanned [facility] Images 0 10:30 [facility] SERVICES Specimen Anatomical Collection Method Collection Time Receive d Time (Source) Location / / Volume Laterality Tissue ENTIRE APEX OF 09/29/2020 13:45 0 PROSTATE / Unknown EST 14:30 EST Tissue specimen ENTIRE BASE OF 09/29/2020 13:45 2019 (specimen) PROSTATE / Unknown EST 14:30 EST Tissue specimen RIGHT LATERAL 09/29/2020 13:45 020 (specimen) MIDDLE PERIPHERAL EST 14:30 EST ZONE OF PROSTATE / Unknown Tissue specimen ENTIRE MIDDLE 09/29/2020 13:45 020 (specimen) REGION OF PROSTATE EST 14:30 EST / Unknown Tissue specimen ENTIRE APEX OF 09/29/2020 13:45 2019 (specimen) PROSTATE / Unknown EST 14:30 EST Tissue specimen ENTIRE APEX OF 09/29/2020 13:45 2019 (specimen) PROSTATE / Unknown EST 14:30 EST Tissue specimen ENTIRE BASE OF 09/29/2020 13:45 2019 (specimen) PROSTATE / Unknown EST 14:30 EST Tissue specimen ENTIRE BASE OF 09/29/2020 13:45 2019 (specimen) PROSTATE / Unknown EST 14:30 EST Tissue specimen ENTIRE LATERAL 09/29/2020 13:45 2019 (specimen) MIDDLE REGIONAL EST 14:30 EST PART OF PERIPHERAL ZONE OF LEFT HALF PROSTATE / Unknown Tissue specimen ENTIRE MIDDLE 09/29/2020 13:45 020 (specimen) REGION OF PROSTATE EST 14:30 EST / Unknown Tissue specimen ENTIRE APEX OF 09/29/2020 13:45 2019 (specimen) PROSTATE / Unknown EST 14:30 EST Tissue specimen ENTIRE APEX OF 09/29/2020 13:45 2019 (specimen) PROSTATE / Unknown EST 14:30 EST Oscar Rojas MD PATHOLOGY ORDERABLES Performing Organization Address City/State/ZIP Code Phon e Number [facility] [address] [place] [address] SERVICES documented in this encounter Visit Diagnoses Diagnosis Elevated prostate specific antigen (PSA) documented in this encounter Care Teams Production Control Specialist Relationship Specialty Start Date End Date Aletha Newell ANGELA PCP - General 08/10/[address] [place] [address] [place] [phone] documented as of this encounter
--- OUTSIDE RECORDS SUMMARY | 2022-10-04 00:48 | XMS_ITS | Clinical Summary ---
:1945 Author Organization [facility] Address [address] [place] [address] Care Team Providers Name Role Phone Aletha Newell NP Primary Care Provider Encounters Date Type Specialty Care Team Description 09/12/2022 Lab Requisition Clinical Laboratory Outr Resulting Lab , Provider 08/19/2022 Lab Requisition Clinical Laboratory Outr Resulting Lab , Provider from Last 3 Months Social History Tobacco Use Types Packs/Day Years Used Date Smoking Tobacco: Never Assessed Sex Assigned at Date Recorded Not on file Plan of Treatment Health Maintenance Due Date Last Done Comments Hepatitis C Screen 1945 COVID-19 Vaccine (#1) 1945 Fall Risk Screening 2009 Procedures Procedure Name Priority Date/Time Associated Comments Diagnosis HOLD SST Today 09/11/2022 15:50 Results for this EDT procedure are i n the results section. SYPHILIS SEROLOGY Today 09/11/2022 15:50 Result s for this EDT procedure are i n the results section. LYME AB Today 09/11/2022 15:50 Results for this EDT procedure are i n the results section. PSA TOTAL, Routine 08/19/2022 8:41 EDT Results for this DIAGNOSTIC procedure are i n the results section. from Last 3 Months Results HOLD SST (09/11/2022 15:50 EDT) P athologist Signature Hold Hold 09/12/2022 [facility] 18:46 EDT CENTER LABORATORY SERVICES Specimen Anatomical Collection Method Collection Time Receive d Time (Source) Location / / Volume Laterality Blood VENOUS BLOOD / 09/11/2022 15:50 Unknown EDT 17:39 EDT Provider Outr Resulting Lab LAB INFO SERVICE AND SUPPO RT & PHONE RESULT Performing Organization Address City/State/ZIP Code Phon e Number [facility] [address] [place] [address] SERVICES SYPHILIS SEROLOGY (09/11/2022 15:50 EDT) Analysis Performed At Patho logist Time Signature Syphilis Negative Negative 09/13/2022 [facility] Serology 10:56 EDT CENTER LABORATORY SERVICES Specimen Anatomical Collection Method Collection Time Receive d Time (Source) Location / / Volume Laterality Blood VENOUS BLOOD / 09/11/2022 15:50 2 Unknown EDT 17:37 EDT Provider Outr Resulting Lab IMMUNOLOGY AND SEROLOGY OR DERABLES Performing Organization Address City/[facility] Code Phon e Number [facility] [address] [place] [address] SERVICES LYME AB (09/11/2022 15:50 EDT) P athologist Signature Lyme Ab Negative Negative 09/13/2022 [facility] 10:44 EDT CENTER LABORATORY SERVICES Specimen Anatomical Collection Method Collection Time Receive d Time (Source) Location / / Volume Laterality Blood VENOUS BLOOD / 09/11/2022 15:50 2 Unknown EDT 17:37 EDT Provider Outr Resulting Lab IMMUNOLOGY AND SEROLOGY OR DERABLES Performing Organization Address [facility] Phon e Number [facility] [address] [place] [address] SERVICES PSA TOTAL, DIAGNOSTIC (08/19/2022 8:41 EDT) athologist Signature PSA <0.1 <=6.5 ng/mL 08/19/2022 [facility] 18:35 EDT CENTER LABORATORY SERVICES Specimen Anatomical Collection Method Collection Time Receive d Time (Source) Location / / Volume Laterality Blood VENOUS BLOOD / 08/19/2022 8:41 08/19/2022 Unknown EDT 17:44 EDT Narrative [facility] - 08/19/2022 18:35 EDT NOTE: Serum PSA concentration should not be in terpreted as absolute evidence for the presence or absence of malignant disease. Assayed on Siemens ADVIA TrueVaultaur XPT usi ng chemiluminescent technology.??Values obtained by using different assay methods cannot be used interchangeably. Provider Outr Resulting Lab CHEMISTRY & BLOOD GAS ORDE RABLES Performing Organization Address City/[facility]/ZIP [facility] Phon e Number [facility] [address] [place] [address] SERVICES from Last 3 Months Insurance Payer Benefit Plan / Subscriber ID Effective Phone Address T ype Group Dates [facility] [id number] 2019-Pres [address] [facility] [id number] [place] [address] Care Teams Banking Representative Relationship Specialty Start Date End Date Aletha Newell, WHARF ATTENDANT PCP - General 08/10/[address] [place] [address] [place] [phone]
--- NOTE | 2022-10-04 10:00 | DI.MRI_ITS ---
Exam(s) MR BRAIN WO/W EXAM: MR BRAIN WO/W CLINICAL HISTORY: ATAXIA, R27.0 TECHNIQUE: Multiplanar multisequence MRI of the brain was performed. Post contrast imaging was also obtained, with T1 weighted axial and coronal imaging and multi planar T1 MP rage imaging. COMPARISON: No exams were available for comparison FINDINGS: The ventricular system is normal in appearance. There are multiple areas of abnormal signal in periventricular and subcortical white matter sparing t he corpus callosum consistent with microvascular ischemic changes. No other significant signal abnor mality identified.. The orbital and temporal bone structures appear intact as does the pituitary. Diffusion weighted imaging shows no evidence of infarction. Susceptibility weighted imaging shows no evidence of intracranial hemorrhage. There is normal flow void in the [place] vasculature. There is no evidence of a mass lesion or enhancing lesion in the brain. IMPRESSION: Presumed microvascular ischemic changes, otherwise normal brain MRI including post contrast imaging. DATA REPOSITORY:
== END ==
PROVIDERS: Visit Provider Physician Assistant
DX: R27.0 Ataxia, unspecified (principal)
CPT/HCPCS: 70553

== ENCOUNTER → 2022-10-09 14:12 | Outpatient (BNVA) | payer MEDICARE, SELFPAY | PROVIDERS: Visit Provider Psychiatry & Neurology Neurology | DX: Z79.82 Long term (current) use of aspirin (principal); F17.210 Nicotine dependence, cigarettes, uncomplicated; I10 Essential (primary) hypertension; R42 Dizziness and giddiness | CPT/HCPCS: 99213 ==

== ENCOUNTER 2022-10-24 11:55 | Outpatient (REF) | payer MEDICARE, SELFPAY ==
[2022-10-24 15:07] LABS: BUN 18 mg/dL (7-18); CREATININE 0.9 mg/dL (0.70-1.30); Calculated LDL 123 mg/dL (<100); Chloride 103 mmol/L (98-107); Cholesterol 205 mg/dL (<200); Estimated GFR 87.42 (mL/min/1.73m2); Glucose 133 mg/dL (74-106); HDL Cholesterol 54 mg/dL (40-60); Potassium 3.9 mmol/L (3.5-5.1); Sodium 139 mmol/L (136-145); Triglyceride 142 mg/dL (<150)
== END 2022-10-24 11:56 | disposition home or self-care (01) ==
LOC: NCHCN 11:55
PROVIDERS: PCP Nurse Practitioner Family; Visit Provider Nurse Practitioner Family
DX: I10 Essential (primary) hypertension (principal); Z13.220 Encounter for screening for lipoid disorders; Z72.0 Tobacco use
CPT/HCPCS: 80048; 80061

== ENCOUNTER 2022-11-15 02:34 | Outpatient (CLI) | payer MEDICARE, SELFPAY ==
[2022-11-15 21:15] LABS: PSA, Diagnostic <0.1 ng/mL (<=6.5)
[2022-11-18 16:15] LABS: Testosterone, Total 7.4 ng/dL (240-950)
== END 2022-11-15 02:35 | disposition home or self-care (01) ==
LOC: LBO 02:34
PROVIDERS: PCP Nurse Practitioner Family; Visit Provider Urology
DX: C61 Malignant neoplasm of prostate (principal)
CPT/HCPCS: 36415; 84403; 84153

== ENCOUNTER → 2022-11-22 08:30 | Outpatient (BNVA) | payer MEDICARE, SELFPAY | PROVIDERS: PCP Nurse Practitioner Family; Referring Provider Nurse Practitioner Family; Visit Provider Urology | DX: C61 Malignant neoplasm of prostate (principal) | CPT/HCPCS: 96402; J9217 ==

== ENCOUNTER 2023-02-20 01:51 | Outpatient (CLI) | payer MEDICARE, SELFPAY ==
[2023-02-21 16:46] LABS: PSA, Ultrasensitive <0.01 ng/mL (<= 6.5)
[2023-02-23 12:33] LABS: Testosterone, Total <7.0 ng/dL (240-950)
== END 2023-02-20 01:52 | disposition home or self-care (01) ==
LOC: LBO 01:51
PROVIDERS: PCP Nurse Practitioner Family; Visit Provider Urology
DX: C61 Malignant neoplasm of prostate (principal)
CPT/HCPCS: 36415; 84153; 84403

== ENCOUNTER 2023-05-16 01:41 | Outpatient (CLI) | payer MEDICARE, SELFPAY ==
[2023-05-19 12:44] LABS: PSA, Ultrasensitive <0.01 ng/mL (<= 6.5)
[2023-05-21 01:33] LABS: Testosterone, Total 7.7 ng/dL (240-950)
== END 2023-05-16 01:42 | disposition home or self-care (01) ==
LOC: LBO 01:41
PROVIDERS: PCP Nurse Practitioner Family; Visit Provider Urology
DX: C61 Malignant neoplasm of prostate (principal)
CPT/HCPCS: 36415; 84153; 84403

== ENCOUNTER → 2023-05-23 10:25 | Outpatient (BNVA) | payer MEDICARE, SELFPAY | PROVIDERS: PCP Nurse Practitioner Family; Visit Provider Urology | DX: Z08 Encounter for follow-up examination after completed treatment for malignant neoplasm (principal); Z85.46 Personal history of malignant neoplasm of prostate; R23.2 Flushing | CPT/HCPCS: 99213 ==

== ENCOUNTER 2023-08-28 04:46 | Outpatient (CLI) | payer MEDICARE, SELFPAY ==
[2023-08-29 18:56] LABS: PSA, Ultrasensitive <0.01 ng/mL (<= 6.5)
[2023-08-31 18:50] LABS: Testosterone, Total 18 ng/dL (240-950)
== END 2023-08-28 04:47 | disposition home or self-care (01) ==
LOC: LBO 04:46
PROVIDERS: PCP Nurse Practitioner Family; Visit Provider Urology
DX: C61 Malignant neoplasm of prostate (principal)
CPT/HCPCS: 36415; 84153; 84403

== ENCOUNTER → 2023-09-09 10:28 | Outpatient (BNVA) | payer MEDICARE, SELFPAY | PROVIDERS: PCP Nurse Practitioner Family; Referring Provider Nurse Practitioner Family; Visit Provider Urology | DX: C61 Malignant neoplasm of prostate (principal) | CPT/HCPCS: 99213 ==

== ENCOUNTER 2023-11-28 01:28 | Outpatient (CLI) | payer MEDICARE, SELFPAY ==
[2023-12-02 11:16] LABS: PSA, Ultrasensitive <0.01 ng/mL (<= 6.5)
[2023-12-02 14:56] LABS: Testosterone, Total 224 ng/dL (240-950)
== END 2023-11-28 01:29 | disposition home or self-care (01) ==
LOC: LBO 01:28
PROVIDERS: PCP Nurse Practitioner Family; Visit Provider Urology
DX: C61 Malignant neoplasm of prostate (principal)
CPT/HCPCS: 36415; 84153; 84403

== ENCOUNTER → 2023-12-05 09:55 | Outpatient (BNVA) | payer MEDICARE, SELFPAY | PROVIDERS: PCP Nurse Practitioner Family; Visit Provider Urology | DX: C61 Malignant neoplasm of prostate (principal) | CPT/HCPCS: 99214 ==

== ENCOUNTER 2024-02-27 02:58 | Outpatient (CLI) | payer MEDICARE, SELFPAY ==
[2024-02-27 18:15] LABS: PSA, Diagnostic <0.1 ng/mL (<=6.5)
[2024-03-02 12:24] LABS: Testosterone, Total 273 ng/dL (240-950)
== END 2024-02-27 02:59 | disposition home or self-care (01) ==
LOC: LBO 02:58
PROVIDERS: PCP Nurse Practitioner Family; Visit Provider Urology
DX: C61 Malignant neoplasm of prostate (principal)
CPT/HCPCS: 36415; 84403; 84153

== ENCOUNTER → 2024-03-05 08:25 | Outpatient (BNVA) | payer MEDICARE, SELFPAY | PROVIDERS: PCP Nurse Practitioner Family; Referring Provider Nurse Practitioner Family; Visit Provider Urology | DX: C61 Malignant neoplasm of prostate (principal) | CPT/HCPCS: 99213 ==

== ENCOUNTER 2024-05-11 02:48 | Outpatient (CLI) | payer MEDICARE, SELFPAY ==
[2024-05-11 19:34] LABS: PSA, Diagnostic <0.1 ng/mL (<=6.5)
[2024-05-16 17:50] LABS: Testosterone, Total 292 ng/dL (240-950)
== END 2024-05-11 02:49 | disposition home or self-care (01) ==
PROVIDERS: PCP Nurse Practitioner Family; Visit Provider Urology
DX: C61 Malignant neoplasm of prostate (principal)
CPT/HCPCS: 36415; 84403; 84153

== ENCOUNTER → 2024-05-18 07:55 | Outpatient (BNVA) | payer MEDICARE, SELFPAY | PROVIDERS: PCP Nurse Practitioner Family; Referring Provider Nurse Practitioner Family; Visit Provider Urology | DX: C61 Malignant neoplasm of prostate (principal) | CPT/HCPCS: 99213 ==

== ENCOUNTER 2024-08-10 03:39 | Outpatient (CLI) | payer MEDICARE, SELFPAY ==
[2024-08-10 18:45] LABS: PSA, Diagnostic <0.1 ng/mL (<=6.5)
[2024-08-13 17:01] LABS: Testosterone, Total 235 ng/dL (240-950)
== END 2024-08-10 03:40 | disposition home or self-care (01) ==
LOC: LBO 03:40
PROVIDERS: PCP Nurse Practitioner Family; Visit Provider Urology
DX: C61 Malignant neoplasm of prostate (principal)
CPT/HCPCS: 36415; 84403; 84153

== ENCOUNTER → 2024-08-17 07:58 | Outpatient (BNVA) | payer MEDICARE, SELFPAY | PROVIDERS: PCP Nurse Practitioner Family; Visit Provider Urology | DX: C61 Malignant neoplasm of prostate (principal) | CPT/HCPCS: 99213 ==

== ENCOUNTER 2024-11-09 02:19 | Outpatient (CLI) | payer MEDICARE, SELFPAY ==
[2024-11-09 20:09] LABS: PSA, Diagnostic <0.1 ng/mL (<=6.5)
[2024-11-12 11:05] LABS: Testosterone, Total 312 ng/dL (240-950)
== END 2024-11-09 02:20 | disposition home or self-care (01) ==
LOC: LBO 02:19
PROVIDERS: PCP Nurse Practitioner Family; Visit Provider Urology
DX: C61 Malignant neoplasm of prostate (principal)
CPT/HCPCS: 36415; 84403; 84153

== ENCOUNTER → 2024-11-16 07:54 | Outpatient (BNVA) | payer MEDICARE, SELFPAY | PROVIDERS: PCP Nurse Practitioner Family; Referring Provider Nurse Practitioner Family; Visit Provider Urology | DX: C61 Malignant neoplasm of prostate (principal) | CPT/HCPCS: 99213 ==

== ENCOUNTER 2025-02-01 02:18 | Outpatient (CLI) | payer MEDICARE, SELFPAY ==
[2025-02-03 09:34] LABS: PSA, Ultrasensitive 0.06 ng/mL (<= 7.2)
[2025-02-04 11:07] LABS: Testosterone, Total 353 ng/dL (240-950)
== END 2025-02-01 02:19 | disposition home or self-care (01) ==
PROVIDERS: PCP Nurse Practitioner Family; Visit Provider Urology
DX: C61 Malignant neoplasm of prostate (principal)
CPT/HCPCS: 36415; 84153; 84403

== ENCOUNTER → 2025-02-08 08:22 | Outpatient (BNVA) | payer MEDICARE, SELFPAY | PROVIDERS: PCP Nurse Practitioner Family; Referring Provider Nurse Practitioner Family; Visit Provider Urology | DX: C61 Malignant neoplasm of prostate (principal) | CPT/HCPCS: 99213 ==

== ENCOUNTER 2025-05-17 02:55 | Outpatient (CLI) | payer MEDICARE, SELFPAY | END 2025-05-17 02:56 | disposition home or self-care (01) | LOC: LBO 02:56 | PROVIDERS: PCP Nurse Practitioner Family; Visit Provider Urology | DX: C61 Malignant neoplasm of prostate (principal) | CPT/HCPCS: 36415; 84153; 84403 ==

== ENCOUNTER → 2025-05-24 07:58 | Outpatient (BNVA) | payer MEDICARE, SELFPAY | PROVIDERS: PCP Nurse Practitioner Family; Referring Provider Nurse Practitioner Family; Visit Provider Urology | DX: C61 Malignant neoplasm of prostate (principal) | CPT/HCPCS: 99213 ==

== ENCOUNTER 2025-07-04 14:00 | Emergency (ER) | payer MEDICARE, SELFPAY ==
[2025-07-04] VITALS (10 sets, daily range): BP systolic 122–137; BP diastolic 76–80; PULSE 64–88; RESP 16–27; TEMP 36.9; O2SAT 93–95
--- NOTE | 2025-07-04 14:00 | RT.EKG_ITS ---
APPROVED REPORT Exam: Resting ECG Reason for Exam: chest discomfort Patient Location: E HR:82 bpm ECG Measurements Heart Rate 82 AXIS WY 175 P 68 QRSd 86 QRS -29 QT 372 T 6 QTc 435 Conclusion Sinus rhythm, rate 82 No interval abnormalities No STEMI Q wave lead V1 unchanged from prior T wave inversion lead III, priors with flattening of T waves
--- NOTE | 2025-07-04 15:00 | DI.RAD_ITS ---
Exam(s) XR CHEST 2V PA LATERAL EXAM: XR CHEST 2V PA LATERAL CLINICAL HISTORY: Chest pain TECHNIQUE: 2D digital imaging was performed of the chest. Two images were obtained. PA and lateral views were obtained. COMPARISON: CR,XR XR RIBS RT W PA LAT CHEST from 12/01/2021 CR,XR XR CHEST 2V PA LATERAL from 09/04/2022 FINDINGS: MEDIASTINUM: Normal. HEART: Normal. PULMONARY VASCULATURE: Normal. LUNGS: There is again seen scarring in the right lung base. There are no focal consolidating infiltrates. PLEURAL SPACE: No pleural effusion or pneumothorax. BONE:Within normal limits for the patient's age. There are old healed right rib fractures. OTHER FINDINGS:Normal. IMPRESSION: No acute pulmonary findings. DATA REPOSITORY: RADIATION DOSE DELIVERED:
--- NOTE | 2025-07-04 15:02 | W.ED.GENAD ---
Discharge Plan Disposition Patient Disposition: Home Condition: Stable Discharge Details Clinical Impression: Chest pain Primary Care Provider: EULALIO MCINTYRE ED Provider: Jazmine Dey Home Meds and New Rx's Prescriptions: No Action aspirin 81 mg tablet,delayed release (DR/EC) 81 mg PO DAILY lisinopril 5 mg tablet 20 mg PO DAILY ZzzQuil 50 mg/30 mL liquid 50 mg PO QHS celecoxib 200 mg capsule See Rx Instructions .ROUTE .COMPLEX Qty: 90 4RF Dose Instruction: TAKE ONE CAPSULE BY MOUTH EVERY DAY Rx Instructions: TAKE ONE CAPSULE BY MOUTH EVERY DAY tamsulosin [Flomax] 0.4 mg capsule 0.4 mg PO DAILY Qty: 90 4RF Discharge Instructions Instructions: Chest Pain, Adult ED Additional Instructions: You were seen in the emergency department today for evaluation of chest pain that woke you from sleep that resolved after belching. In our department a full physical examination performed, had a reassuring EKG and laboratory workup that did not show any significant abnormalities such as damage to your heart, electrolyte derangements, or kidney injury. You had a chest x-ray that was normal, and your pain has not come back since it happened this morning. At this time, it is safe for you to go home and follow-up with your outpatient providers in the next few days to discuss this visit and any symptoms that change, worsen, or persist. Thank you for allowing us to be part of your care. Discharge Data Discharge Date/Time-TO BE ENTERED AT DEPARTURE: 07/04/25 16:40 HPI General Mode of arrival: ambulatory. Date/Time Provider Initiated Documentation: 07/04/25 14:13. Limitations to Documentation: no limitations. Information obtained by: patient, family and old records reviewed. HPI Narrative: This is a an 80-year-old male patient with a history of hypertension, prostate cancer, presenting for evaluation of chest pain. The patient reports that around 230 this morning he was woken from sleep, and had a 10 out of 10 throbbing/stabbing pain that seem to come up from his abdomen into his left sided chest, felt like it was pushing from the back towards the front. He reports that for about 10 or 15 minutes the pain persisted, and he felt like there was a bubble that needed to come out. Eventually he was able to belch and pass gas, and had a complete resolution of the pain. He states that the pain has not recurred throughout the day. The patient has never had pain like this before, and his pain was not associated with diaphoresis, nausea or vomiting, shortness of breath, cough. He has been in his normal state of health, without recent illness or injury. Drink some coffee today without difficulty or exacerbation of symptoms, denies abdominal pain, denies changes to bowel or bladder habits. Did not take any medications for management of the symptoms. Related Data Home Medications ?Medication ?Instructions ?Recorded ?Confirmed diphenhydramine HCl 50 mg/30 mL 50 mg PO QHS 09/17/22 07/04/25 oral liquid (ZzzQuil) aspirin 81 mg tablet,delayed 81 mg PO DAILY 10/09/22 07/04/25 release celecoxib 200 mg capsule See Rx Instructions .Route 11/16/24 07/04/25 .COMPLEX #90 caps lisinopril 5 mg tablet 20 mg PO DAILY 05/24/25 07/04/25 tamsulosin 0.4 mg capsule (Flomax) 0.4 mg PO DAILY #90 caps 05/24/25 07/04/25 Previous Rx's ?Medication ?Instructions ?Recorded celecoxib 200 mg capsule See Rx Instructions .Route 11/16/24 .COMPLEX #90 caps tamsulosin 0.4 mg capsule (Flomax) 0.4 mg PO DAILY #90 caps 05/24/25 Allergies Allergy/AdvReac Type Severity Reaction Status Date / Time Penicillins Allergy Unknown Other (See Verified 07/04/25 14:13 Comment) codeine AdvReac Other (See Verified 07/04/25 14:13 Comment) General Stated Complaint: Chest Pain NICOLE: 3 Exam Narrative Exam Narrative: Gen: awake and alert, in no apparent distress. Appears well nourished. HEENT: PERRL, EOMs full. External ears and nose normal, mucous membranes moist. Neck: Supple, full range of motion, no observable masses Lungs: No increased work of breathing, lung sounds clear and equal bilaterally without wheezes, rhonchi, or rales. CV: Heart with regular rate and rhythm, no murmurs auscultated. Strong and symmetrical radial pulses. Abdomen: Soft, nondistended, non-tender to palpation. No rigidity, rebound tenderness, or guarding. MSK: No joint swelling, no redness. Full ROM without limitation, no external traumatic findings. No unilateral calf swelling or tenderness, no peripheral edema Skin: No rashes or lesions to visualized skin. Normal color, warm, and dry. Neuro: Symmetrical face, clear speech, no unilateral weakness, no sensory deficits. Ambulates with steady gait. Psych: Appropriate for situation. Course Vital Signs Vital signs: Vital Signs Temperature 36.9 C 07/04/25 14:06 Pulse 88 07/04/25 14:06 Respiratory Rate 20 07/04/25 14:06 Blood Pressure 137/80 07/04/25 14:06 Pulse Oximetry 94 07/04/25 14:06 Temperature 36.9 C 07/04/25 14:06 Pulse 88 07/04/25 14:06 Respiratory Rate 20 07/04/25 14:06 Blood Pressure 137/80 07/04/25 14:06 Blood Pressure Position Sitting 07/04/25 14:06 Pulse Oximetry 94 07/04/25 14:06 Oxygen Delivery Method Room Air 07/04/25 14:06 Oxygen Flow Rate 0 07/04/25 14:06 Medical Decision Making This is an 80-year-old male patient presenting for evaluation of a transient episode of chest pain that occurred at 230 this morning and resolved after belching. My differential includes but is not limited to gastric distention due to gas, esophagitis, PUD, gastritis, pancreatitis. Considered ACS including STEMI, NSTEMI, unstable angina, certainly considered arrhythmia, pericarditis/myocarditis, aortic pathology. Considered pulmonary abnormalities including pneumonia, bronchitis, pleural effusion, pulmonary edema, reactive airway disease, pneumothorax. The patient is without tachycardia, hypoxia, or a pleuritic component to his pain to significantly increase my concern for pulmonary embolism. No vomiting to suggest Boerhaave's. Considered musculoskeletal pathologies including costochondritis, chest wall pain. I am reassured that the patient is asymptomatic and has been so for greater than 12 hours. I did obtain and review an EKG, which shows a sinus rhythm without evidence of ischemia, interval abnormality, or ectopy. No significant changes when compared to most recent prior. We will obtain laboratory studies to include CBC, CMP, magnesium, troponin, and lipase. I will obtain a chest x-ray. At this time the patient is not desiring of any medications for management of symptoms. - I independently interpreted the laboratory studies, which show no significant leukocytosis, new anemia, or thrombocytopenia. The chemistry panel is without evidence of electrolyte abnormality, kidney dysfunction, or liver injury. Lipase is low, initial troponin is negative, and given the patient has been over 12 hours without symptoms of chest pain I feel that a single troponin is reasonable at this time. Chest x-ray reviewed by myself and shows no acute abnormalities to account for the patient's symptoms. I am most suspicious for a gastric cause due to the complete resolution with belching, and counseled the patient to monitor his symptoms, take all medications as prescribed, and return to care immediately if chest pain recurred. At this time, the patient has had a full medical evaluation and is safe for discharge to home. They are hemodynamically stable, ambulatory, and tolerating PO. They are understanding of the follow-up plan and return precautions. They left our facility without incident. Jazmine Dey MD [facility] All Active Problems (Updated 07/04/25 @ 16:05 by Jazmine Dey MD) Chest pain (Acute) Prostate cancer (Chronic) Medical History Hypertension Male erectile disorder Smoker Urinary retention due to benign prostatic hyperplasia Surgical History History of surgery on extremity leg Social History Smoking/Tobacco Use Status: Current every day Tobacco Type: cigarettes Smoking packs per day: 0.5 Smoking cigarettes per day: 10.0 Smoking risk assessment performed?: Yes Alcohol Intake: current Alcohol Intake frequency: a few times a week Alcohol type: hard liquor Drug use: Never Substance use type: does not use Household members: spouse Number of Children: 3 current occupation: [employer] Do you feel safe at home: Yes Do you feel safe in your relationship?: Yes Additional Social history: at the bedside. PAWSS Have you Been Recently Intoxicated or Drunk Within the Last 30 days?: No Have you Ever Experienced Previous Episodes of Alcohol Withdrawal?: No Have you ever Experienced Withdrawal Seizures?: No Have you ever Experienced Delirium Tremens(DT)s?: No Have you ever undergone Alcohol Rehabilitation Treatment (i.e, inpt ot outpatient treatment programs)?: No Have you ever Experienced Blackouts?: No Have you ever Combined Alcohol with other Downers within the last 90 days?: No Have you ever Combined Alcohol with any other Substance of Abuse during the last 90 days?: No Positive Blood Alcohol level on Presentation? [PCS.BAL]: No Evidence of Increased Autonomic Activity (i.e. HR>120, tremor, sweating, agitation, nausea)?: No Result: 0
[2025-07-04 15:32] LABS: Abs Immature Grans 0.01 10^3/uL (0.0-0.06); HCT 39.7 % (40.0-50.0); HGB 13.0 g/dL (13.5-17.5); Immature Grans % 0.3 %; MCH 30.6 pg (27.0-33.0); MCHC 32.7 % (32.0-36.0); MCV 93 fL (80-95); MPV 9.7 fL (8.0-11.0); Platelet Count 186 10^3/uL (130-400); RBC 4.25 10^6/uL (4.36-5.78); RDW 13.9 % (11.8-14.1); RDW-SD 47.2 fL; WBC 3.49 10^3/uL (4.4-10.8)
[2025-07-04 15:52] LABS: ALT 21 U/L (16-63); AST 18 U/L (15-37); Albumin 4.0 g/dL (3.4-5.0); Alkaline Phosphatase 96 U/L (46-116); Anion Gap 10.0 mmol/L (3-11); BUN 14 mg/dL (7-18); Bilirubin, Total 0.4 mg/dL (0.2-1.0); CO2 26.0 mmol/L (21.0-32.0); Calcium 9.1 mg/dL (8.5-10.1); Chloride 103 mmol/L (98-107); Estimated GFR 67.44 (mL/min/1.73m2); Glucose 106 mg/dL (74-106); Lipase 29 U/L (<78); Magnesium 2.2 mg/dL (1.8-2.4); Potassium 4.1 mmol/L (3.5-5.1); Sodium 139 mmol/L (136-145); Total Protein 7.7 g/dL (6.4-8.2); Troponin I 29 ng/L (<or=76)
== END 2025-07-04 16:40 | disposition home or self-care (01) ==
PROVIDERS: Emergency Provider Emergency Medicine; PCP Nurse Practitioner Family
DX: R07.9 Chest pain, unspecified (principal); Z72.0 Tobacco use
CPT/HCPCS: 99283; 99284; 36415; 80053; 83690; 93005; 71046; 83735; 84484; 85025; 93010

== ENCOUNTER 2025-09-02 03:24 | Outpatient (CLI) | payer MEDICARE, SELFPAY | END 2025-09-02 03:25 | disposition home or self-care (01) | LOC: LBO 03:25 | PROVIDERS: PCP Nurse Practitioner Family; Visit Provider Urology | DX: C61 Malignant neoplasm of prostate (principal) | CPT/HCPCS: 36415; 84153; 84403 ==

== ENCOUNTER → 2025-09-09 10:26 | Outpatient (BNVA) | payer MEDICARE, SELFPAY | PROVIDERS: PCP Nurse Practitioner Family; Referring Provider Nurse Practitioner Family; Visit Provider Urology | DX: C61 Malignant neoplasm of prostate (principal) | CPT/HCPCS: 99213 ==